=== PATIENT | female | born 1995 | race Caucasian/White ===

== ENCOUNTER → 2020-02-05 13:03 | Outpatient (BNVA) | payer OTHER, SELFPAY | PROVIDERS: PCP Internal Medicine; Referring Provider Internal Medicine; Visit Provider Advanced Practice Midwife | DX: Z39.2 Encounter for routine postpartum follow-up (principal) | CPT/HCPCS: 99212 ==

== ENCOUNTER 2020-04-25 13:14 | Outpatient (REF) | payer OTHER, SELFPAY | END 2020-04-25 13:15 | disposition home or self-care (01) | LOC: HO.LAB 13:14 | PROVIDERS: PCP Internal Medicine; Visit Provider Internal Medicine | DX: Z20.822 Contact with and (suspected) exposure to COVID-19 (principal) | CPT/HCPCS: 36415; C9803; U0003 ==

== ENCOUNTER → 2020-06-23 09:40 | Outpatient (BNVA) | payer OTHER, SELFPAY | PROVIDERS: PCP Internal Medicine; Visit Provider Advanced Practice Midwife | DX: Z32.01 Encounter for pregnancy test, result positive (principal); Z87.59 Personal history of other complications of pregnancy, childbirth and the puerperium | CPT/HCPCS: 99212 ==

== ENCOUNTER 2020-07-03 15:03 | Emergency (ER) | payer OTHER, SELFPAY ==
[2020-07-03 15:30] VITALS: BP 137/76; PULSE 86; RESP 18; TEMP 37.1; O2SAT 100; BMI 42.2
--- NOTE | 2020-07-03 16:34 | ED.GENADULT ---
HPI - General Adult General Chief complaint: General Medical Stated complaint: sinus infection? Time Seen by Provider: 07/03/20 16:34 History of Present Illness HPI narrative: Patient complains of mild left-sided headache with mild photophobia and congestion on the left side and some pain in the left side of her face which is mild and pain is worse when patient bends head, no fever no true lives, the headache started very slowly and gradually and at peak is mild It is similar to previous migraines as well but they usually happen on the right side, she has had this similar headache several times before associated with sinus infection according to patient Patient is 7 weeks Related Data Home Medications Medication Instructions Recorded Confirmed prenat.vits,flavio,deq-kheq-ianod 1 tab PO DAILY 02/05/20 06/23/20 fluticasone propionate 44 2 puff PO BID 06/23/20 06/23/20 mcg/actuation HFA aerosol inhaler loratadine 10 mg tablet 10 mg PO DAILY 06/23/20 06/23/20 Previous Rx's Medication Instructions Recorded amoxicillin 500 mg PO Q8H 7 Days #21 cap 07/03/20 Allergies Allergy/AdvReac Type Severity Reaction Status Date / Time aspirin [ASPIRIN] Allergy Unknown ITCHY Unverified 06/23/20 09:46 RASH, stomach upset, rash, stomach upset mushroom [MUSHROOM] Allergy Unknown UNKNOWN Unverified 06/23/20 09:46 Mushrooms Allergy Unknown anaphylaxis Uncoded 06/23/20 09:46 Review of Systems Review of Systems: Positive for left-sided headache photophobia and facial pain Negatives are no fever no chills no dizziness no weakness no confusion, no neck pain no stiff neck no sore throat no chest pain no shortness of breath no difficulty breathing or swallowing, no abdominal pain, no nausea no vomiting, no vaginal bleeding no skin rash and no weakness or numbness PMFSH Past Medical History PMFSH Narrative: Patient is 7 weeks Medical History Accelerated hypertension Asthma Depression Gastritis Social History Social History Alcohol intake: never Smoking Status: Never smoker Advance Directives: No Advance Directives Information Provided: No Physical Exam Vital Signs: Vital Signs: Last Vital Signs Temp 98.7 F 03/21/21 15:30 Pulse 86 07/03/20 15:30 Resp 18 07/03/20 15:30 BP 137/76 07/03/20 15:30 Pulse Ox 100 07/03/20 15:30 Body Mass Index 42.2 General appearance is no acute distress, comfortable relaxed and cooperative The head is normocephalic atraumatic The ears are clear with no redness to tympanic membrane, no narrowing of canal There is left sinus tenderness over maxillary sinus and frontal sinus, there is congestion on the left side there is no obvious facial swelling, pain is reproduced by having the patient bend forward in the left side of the face The pharynx is clear The neck is supple Chest is clear to auscultation with full symmetrical bilateral lung sounds The heart rate and rhythm regular no murmur Abdomen is soft nontender Skin no rashes Neuro gait is normal balance is normal verbal interaction and comprehension is normal, no facial asymmetry, motor is 5/5 x4, sensation is intact and symmetrical Course Course Course Narrative: Patient in 7 weeks of complains of a left-sided headache similar to prior that had a gradual onset that is mild at its peak and she associates it with prior sinus infection, but she has also had prior migraines that involve photophobia and they have been on the right side She is treated with amoxicillin for possible sinusitis and Tylenol for headache and will return for any worsening or changed headache or vomiting Discharge Plan Discharge Clinical Impression: Headache Qualifiers: Headache type: unspecified Headache chronicity pattern: unspecified pattern Intractability: not intractable Qualified Code(s): R51.9 - Headache, unspecified Patient Disposition: Home, Self-Care Additional Instructions: The headache does not seem dangerous at this pont It may be a variant of your previous migraines, or possible early sinusitis so we are treating with amoxicillin and Tylenol for pain Of headache pain worsens, if you have any dizziness or weakness, or fever or any worse condition or any concerns return to the ER Follow with care and primary doctor Prescriptions: New amoxicillin 500 mg capsule 500 mg PO Q8H 7 Days Qty: 21 RF: 0 No Action prenat.vits,flavio,fgk-uwuw-[id number] Tablet 1 tab PO DAILY RF: 0 loratadine 10 mg tablet 10 mg PO DAILY RF: 0 Flovent HFA 44 mcg/actuation HFA aerosol inhaler 2 puff PO BID RF: 0
== END 2020-07-03 17:01 | disposition home or self-care (01) ==
PROVIDERS: Emergency Provider Internal Medicine; PCP Internal Medicine
DX: O26.891 Other specified pregnancy related conditions, first trimester (principal); R51.9 Headache, unspecified; Z3A.01 Less than 8 weeks gestation of pregnancy
CPT/HCPCS: 99283

== ENCOUNTER 2020-07-08 12:44 | Outpatient (REF) | payer OTHER, SELFPAY ==
[2020-07-08 14:05] LABS: MANUAL DIFF FLAG NO
[2020-07-08 14:11] LABS: Basophils Percent Auto 0.3 % (0-2); Eosinophils Absolute Auto 0.1 X10*3/uL (0.0-0.4); Eosinophils Percent Auto 0.5 % (0-4); Hematocrit 36.8 % (37-47); Hemoglobin 12.5 g/dl (12.0-16.0); Imm Gran Abs Auto 0.05 X10*3/uL (0.00-0.03); Imm Gran Pct Auto 0.5 % (0.0-0.4); Lymphocytes Absolute Auto 2.9 X10*3/uL (1.2-4.9); Lymphocytes Percent Auto 25.8 % (20-40); Mean Corpuscular Hemoglobin 31.1 pg (27.0-33.0); Mean Corpuscular Volume 91.5 fL (80-98); Mean Platelet Volume 10.6 fL (9.4-12.3); Monocytes Absolute Auto 0.8 X10*3/uL (0.1-1.2); Neutrophils Absolute Auto 7.3 X10*3/uL (2.0-8.3); Neutrophils Percent Auto 65.9 % (45-73); Platelet Count 356 X10*3/uL (160-400); Red Blood Count 4.02 X10*6/uL (4.20-5.50); Red Cell Distribution Width 12.8 % (11.0-16.0); White Blood Count 11.1 X10*3/uL (4.8-10.8)
[2020-07-08 14:45] LABS: Alanine Aminotransferase 13 U/L (0-31); Albumin Level 3.9 g/dL (3.5-5.0); Alkaline Phosphatase 64 U/L (39-117); Anion Gap 16 (12-20); Aspartate Amino Transferase 13 U/L (5-31); Bilirubin Total 0.2 mg/dL (0.0-1.0); Blood Urea Nitrogen 11 mg/dL (9-16); Calcium 9.1 mg/dL (8.4-10.2); Carbon Dioxide 21 mmol/L (22-29); Chloride 104 mmol/L (96-108); Estimated Glomerular Filt Rate > 60; Glucose Random 111 mg/dL (60-115); Potassium 3.9 mmol/L (3.3-5.1); Sodium 137 mmol/L (135-145)
== END 2020-07-08 12:45 | disposition home or self-care (01) ==
LOC: HO.HMGCLDS 12:44
PROVIDERS: PCP Internal Medicine; Visit Provider Nurse Practitioner Family
DX: R10.13 Epigastric pain (principal)
CPT/HCPCS: 36415; 80053; 85025

== ENCOUNTER 2020-07-09 09:38 | Emergency (ER) | payer OTHER, SELFPAY ==
--- NOTE | ~2020-07-09 | US_ITS ---
EXAMINATION: US OBSTETRICAL ULTRASOUND CLINICAL INFORMATION: 7 weeks with vaginal bleeding. COMPARISON: None. LMP: 05/14/2020. Gestational age by maternal dates is 8 weeks and 0 days. Estimated date of delivery by maternal dates is 02/18/2021. TECHNIQUE: Grayscale transabdominal imaging was obtained of the pelvis. FINDINGS: Two separate intrauterine gestational sacs are noted. Gestational sac A demonstrates a yolk sac and pole with a heart rate of 142 bpm. Gestational sac B demonstrates a yolk sac and pole with a heart rate of 137 bpm. [place]-rump measurements of both poles corresponds with a gestational age of 7 weeks and 0 days. Both ovaries are normal in size and appearance. No gross free pelvic fluid noted. US/US OB <= 14 weeks fetus IMPRESSION: 1. Twin intrauterine gestation with ultrasound gestational age of 7 weeks +/- 4 days. 2. Estimated date of delivery is 02/25/2021 +/- 4 days. 3. No maternal adnexal mass or pelvic ascites.
--- NOTE | ~2020-07-09 | US_ITS ---
EXAMINATION: US OBSTETRICAL ULTRASOUND CLINICAL INFORMATION: 7 weeks with vaginal bleeding. COMPARISON: None. LMP: 05/14/2020. Gestational age by maternal dates is 8 weeks and 0 days. Estimated date of delivery by maternal dates is 02/18/2021. TECHNIQUE: Grayscale transabdominal imaging was obtained of the pelvis. FINDINGS: Two separate intrauterine gestational sacs are noted. Gestational sac A demonstrates a yolk sac and pole with a heart rate of 142 bpm. Gestational sac B demonstrates a yolk sac and pole with a heart rate of 137 bpm. [place]-rump measurements of both poles corresponds with a gestational age of 7 weeks and 0 days. Both ovaries are normal in size and appearance. No gross free pelvic fluid noted. US/US OB <= 14 wk fetus add gest IMPRESSION: 1. Twin intrauterine gestation with ultrasound gestational age of 7 weeks +/- 4 days. 2. Estimated date of delivery is 02/25/2021 +/- 4 days. 3. No maternal adnexal mass or pelvic ascites.
[2020-07-09 09:43] VITALS: BP 130/77; PULSE 94; RESP 16; TEMP 37.1; O2SAT 99; BMI 43.9
[2020-07-09 10:39] LABS: MANUAL DIFF FLAG NO
[2020-07-09 10:43] LABS: Basophils Percent Auto 0.4 % (0-2); Eosinophils Absolute Auto 0.1 X10*3/uL (0.0-0.4); Eosinophils Percent Auto 0.7 % (0-4); Hematocrit 36.6 % (37-47); Hemoglobin 12.4 g/dl (12.0-16.0); Imm Gran Abs Auto 0.04 X10*3/uL (0.00-0.03); Imm Gran Pct Auto 0.4 % (0.0-0.4); Lymphocytes Absolute Auto 2.7 X10*3/uL (1.2-4.9); Mean Corpuscular HGB Conc 33.9 g/dl (31.0-35.0); Mean Corpuscular Hemoglobin 30.7 pg (27.0-33.0); Mean Corpuscular Volume 90.6 fL (80-98); Mean Platelet Volume 10.2 fL (9.4-12.3); Monocytes Absolute Auto 0.7 X10*3/uL (0.1-1.2); Monocytes Percent Auto 6.1 % (2-11); Neutrophils Absolute Auto 7.7 X10*3/uL (2.0-8.3); Neutrophils Percent Auto 68.4 % (45-73); Platelet Count 337 X10*3/uL (160-400); Red Blood Count 4.04 X10*6/uL (4.20-5.50); Red Cell Distribution Width 12.7 % (11.0-16.0); White Blood Count 11.2 X10*3/uL (4.8-10.8)
--- NOTE | 2020-07-09 11:00 | ED.FEMALEGU ---
HPI - Female Genitourinary General Chief complaint: Urogenital-Female Stated complaint: spotting - 7wks preg Time Seen by Provider: 07/09/20 10:04 Source: patient Mode of arrival: ambulatory Limitations: no limitations Related Data Home Medications Medication Instructions Recorded Confirmed prenat.vits,flavio,[id number] 1 tab PO DAILY 02/05/20 06/23/20 fluticasone propionate 44 2 puff PO BID 06/23/20 06/23/20 mcg/actuation HFA aerosol inhaler loratadine 10 mg tablet 10 mg PO DAILY 06/23/20 06/23/20 loratadine 10 mg tablet 10 mg PO DAILY 07/08/20 Previous Rx's Medication Instructions Recorded amoxicillin 500 mg PO Q8H 7 Days #21 cap 07/03/20 doxylamine succinate 25 mg tablet 12.5 mg PO BEDTIME 30 Days #15 tab 07/05/20 pyridoxine (vitamin B6) 25 mg 25 mg PO TID 30 Days #90 tab 07/05/20 tablet famotidine 20 mg tablet 20 mg PO DAILY PRN #30 tab 07/08/20 Allergies Allergy/AdvReac Type Severity Reaction Status Date / Time aspirin [ASPIRIN] Allergy Unknown ITCHY Verified 07/09/20 09:48 RASH, stomach upset, rash, stomach upset mushroom [MUSHROOM] Allergy Unknown UNKNOWN Verified 07/09/20 09:48 [facility] Past Medical History Medical History Accelerated hypertension Asthma Depression Gastritis Social History Social History Alcohol intake: never Smoking Status: Never smoker Advance Directives: No Advance Directives Information Provided: Yes Physical Exam Vital Signs: Vital Signs: Last Vital Signs Temp 98.7 F 07/09/20 09:43 Pulse 94 07/09/20 09:43 Resp 16 07/09/20 09:43 BP 130/77 07/09/20 09:43 Pulse Ox 99 07/09/20 09:43 Body Mass Index 43.9 MDM - Female Genitourinary Lab Data Result diagrams: 07/09/20 10:32 07/09/20 10:32 Labs: Lab Results 07/09/20 07/09/20 Range/Units 10:32 10:32 WBC 11.2 H (4.8-10.8) X10*3/uL RBC 4.04 L (4.20-5.50) X10*6/uL Hgb 12.4 (12.0-16.0) g/dl Hct 36.6 L (37-47) % MCV 90.6 (80-98) fL MCH 30.7 (27.0-33.0) pg MCHC 33.9 (31.0-35.0) g/dl RDW 12.7 (11.0-16.0) % Plt Count 337 (160-400) X10*3/uL MPV 10.2 (9.4-12.3) fL Immature Gran % (Auto) 0.4 (0.0-0.4) % Neut % (Auto) 68.4 (45-73) % Lymph % (Auto) 24.0 (20-40) % [place] % (Auto) 6.1 (2-11) % Eos % (Auto) 0.7 (0-4) % Baso % (Auto) 0.4 (0-2) % Lymph # (Auto) 2.7 (1.2-4.9) X10*3/uL [place] # (Auto) 0.7 (0.1-1.2) X10*3/uL Eos # (Auto) 0.1 (0.0-0.4) X10*3/uL Baso # (Auto) 0.0 (0.0-0.2) X10*3/uL Abs Immat Gran (auto) 0.04 H (0.00-0.03) X10*3/uL Absolute Neuts (auto) 7.7 (2.0-8.3) X10*3/uL Absolute Nucleated RBC 0.000 (0.0-0.012) X10*3/uL Nucleated RBC % (auto) 0.0 (0.0-0.2) /100WBC Blood Type A Positive Discharge Plan Discharge Prescriptions: No Action Unisom (doxylamine) 25 mg tablet 12.5 mg PO BEDTIME 30 Days Qty: 15 RF: 0 pyridoxine (vitamin B6) 25 mg tablet 25 mg PO TID 30 Days Qty: 90 RF: 0 amoxicillin 500 mg capsule 500 mg PO Q8H 7 Days Qty: 21 RF: 0 loratadine [Claritin] 10 mg tablet 10 mg PO DAILY RF: 0 famotidine 20 mg tablet 20 mg PO DAILY PRN (Reason: epigastric discomfort) Qty: 30 RF: 0 prenat.vits,flavio,yfh-ecjm-wuwsd Tablet 1 tab PO DAILY RF: 0 loratadine 10 mg tablet 10 mg PO DAILY RF: 0 Flovent HFA 44 mcg/actuation HFA aerosol inhaler 2 puff PO BID RF: 0
--- NOTE | 2020-07-09 11:00 | PC.NURSE ---
RE'D REPORT FROM ALEXANDER STILES. PT IN NAD AT THIS TIME, AWAITING LAB RESULTS & TRANSPORT TO US.
--- NOTE | 2020-07-09 11:02 | ED_ITS ---
HPI - General Chief complaint: Urogenital-Female Stated complaint: spotting - 7wks preg Time Seen by Provider: 07/09/20 10:04 Source: patient Mode of arrival: ambulatory Limitations: no limitations History of Present Illness HPI Narrative: 24-year-old female with multiparous patient who is AB1 currently 7 and half weeks with a due date of 01/19/2021 her last menstrual period was 05/14/2020 with a history of gestational hypertension in her previous pregnancies and hemorrhage therefore she had to be induced in the past, her last was in December and she gave at [facility] due to Our birthing center here at [facility] closed she reports her water broke and went into labor on her own before her day of induction and she had no hemorrhaging and no complications presenting to the ED with complaints of suprapubic abdominal pain/cramping with associated light pink vaginal bleeding that started yesterday. Patient reports she was just seen by her OBGYN on 06/23/2020 for her 1st encounter otherwise she did not have any symptoms at that time and she did not have any blood work or imaging performed at that time. Reports she is currently taking her previously prescribed medications as previously prescribed. Denies any fevers, chills, h eadaches, dizziness, sore throat, chest pain, shortness of breath, palpitations, dyspnea on exertion, orthopnea, radiation of the abdominal pain, back pain, abnormal vaginal discharge, hematuria, dysuria, diarrhea, constipation or any other symptoms complaints or concerns at this time. MD Complaint: abdominal pain and vaginal bleeding Onset (ago): day(s) (since yesterday) Pain Consistency: constant Location: pelvis Severity: mild Quality: Cramping Relieving factors: none Exacerbating factors: none Associated symptoms: denies other symptoms Vaginal discharge: clear (/bloody) Vaginal bleeding: light ([place] color no clots) Date of Last Menstrual Period: 05/14/20 Expected Date of Delivery: 01/19/21 Number of Weeks : 7 OB History - Current : no complications OB History - Previous Pregnancies: hypertension care: followed by OB Related Data : 6 Para: 4 Total number of abortions (spontaneous and elective): 1 Home Medications Medication Instructions Recorded Confirmed prenat.vits,flavio,[id number]-lfpn-auigb 1 tab PO DAILY 02/05/20 06/23/20 fluticasone propionate 44 2 puff PO BID 06/23/20 06/23/20 mcg/actuation HFA aerosol inhaler loratadine 10 mg tablet 10 mg PO DAILY 06/23/20 06/23/20 loratadine 10 mg tablet 10 mg PO DAILY 07/08/20 Previous Rx's Medication Instructions Recorded amoxicillin 500 mg PO Q8H 7 Days #21 cap 07/03/20 doxylamine succinate 25 mg tablet 12.5 mg PO BEDTIME 30 Days #15 tab 07/05/20 pyridoxine (vitamin B6) 25 mg 25 mg PO TID 30 Days #90 tab 07/05/20 tablet famotidine 20 mg tablet 20 mg PO DAILY PRN #30 tab 07/08/20 acetaminophen [Tylenol Extra 1,000 mg PO QID PRN #14 tab 07/09/20 Strength] Allergies Allergy/AdvReac Type Severity Reaction Status Date / Time aspirin [ASPIRIN] Allergy Unknown ITCHY Verified 07/09/20 09:48 RASH, stomach upset, rash, stomach upset mushroom [MUSHROOM] Allergy Unknown UNKNOWN Verified 07/09/20 09:48 Review of Systems Review of Systems: Constitutional : No Fever, No Chills ENT/Mouth : No sore throat, No Rhinorrhea Eyes: No Eye Pain, No Redness Cardiovascular : No Chest Pain, No SOB Respiratory : No Cough, No Sputum, No Wheezing Gastrointestinal : + mild lower abd pain, No Nausea, No Vomiting, No Diarrhea Genitourinary : + irregular bleeding, No Dysuria, No Urinary Frequency, No pelvic pain, No abnormal vaginal discharge Musculoskeletal : No Myalgias Skin : No rash Neuro : No Weakness, No Headache Psych : No Anxiety/Panic, No Depression Heme/Lymph: No bruising, No Lymphadenopathy Endocrine : No Polyuria, No Polydipsia Yes all other systems are reviewed and are negative [facility] Past Medical History Attestation statement: The following information was validated with the patient. Medical History Accelerated hypertension Asthma Depression Gastritis : 6 Para: 4 Total number of abortions (spontaneous and elective): 1 Date of Last Menstrual Period: 05/14/20 Social History Social History Alcohol intake: never Smoking Status: Never smoker Advance Directives: No Advance Directives Information Provided: Yes Physical Exam Vital Signs: Vital Signs: Last Vital Signs Temp 98.7 F 07/09/20 09:43 Pulse 94 07/09/20 09:43 Resp 16 07/09/20 09:43 BP 130/77 07/09/20 09:43 Pulse Ox 99 07/09/20 09:43 Body Mass Index 43.9 vital signs have been reviewed as normal and appeared to be correct. Blood pressure normal at 130/77. Heart rate normal. Respiration rate normal. Temperature normal. Oxygen saturation normal. Appearance: Alert. Oriented X3. No acute distress. Head: Normal external exam. Normocephalic. Atraumatic. Eyes: PERRLA. EOMI. Conjunctiva and sclera normal. Eyelids normal. ENT: Pharynx normal. Uvula midline. Moist mucous membranes. Neck: Normal inspection. Neck supple. FROM. No adenopathy. Thyroid Normal. No meningeal signs. No neck mass noted. CVS: Normal heart rate and rhythm. Heart sound normal. No murmurs noted. Pulses normal throughout. Respiratory: No respiratory distress. Painless inspiration. Breath sounds normal. No wheezes/rales/rhonchi noted. Chest nontender. No accessory muscle usage noted or decreased air movement noted. Abdomen: Soft and nontender. Bowel sounds normal in all 4 quadrants. No distention noted. No organomegaly noted. No visible injury noted. : Supervised by ADRIANA Morrison. Normal external appearance of urethra. No lesions/lacerations or discharge or tenderness noted. Speculum exam normal appearance/palpation of vagina normal. Patient did have some mild thin pink/reddish colored discharge/mild bleeding. No hemorrhaging noted. Otherwise no vaginal erythema. No foreign bodies noted. No vaginal laceration/lesions noted. No tissue present in vagina. No vaginal mass noted. No vaginal swelling noted. No vaginal tenderness noted. Normal appearance of cervix. Normal palpation of cervix. Cervical os is closed. No abnormal cervical discharge noted. No cervical lesion/mass. No Bartholin cyst noted. No cervical motion tenderness noted. Negative chandelier sign. Normal bimanual exam. Uterine size normal. Bladder normal to palpation. Uterine consistency normal. Normal cervical palpation. Uterine mobility normal. Uterine shape normal. Normal adnexa. Normal rectovaginal exam. Back: No CVA tenderness. Full range of motion noted. Skin: Skin warm and dry. Normal skin color. Normal skin turgor. No rashes/lesions/lacerations noted. Extremities: No lower extremity edema. Extremities exhibit normal range of motion. Extremities nontender. Neuro: Oriented X 3. No motor deficit. No sensory deficit. Reflexes normal. Course Course Course Narrative: 10am - 24-year-old female with multiparous patient who is AB1 currently 7-1/2 weeks with a due date of 01/19/2021 her last menstrual period was 05/14/2020 with a history of gestational hypertension in her previous pregnancies and hemorrhage presenting to the ED with complaints of lower abdominal/suprapubic abdominal pain with light/mild vaginal bleeding since yesterday. Denies any other symptoms complaints or concerns at this time. - on exam patient is alert and oriented x3. Not in any acute distress. Vital signs are stable within normal limits. Lungs clear to auscultation. CV RRR. abdomen is soft and nontender. No reproducible tenderness on exam. Gravid uterus. Speculum exam revealed mild light bloody discharge no active bleeding or hemorrhaging noted at this time. No abnormal vaginal discharge. No CVA tenderness noted. No lower extremity edema noted. - Plan: Labs, Rh, UA, gonorrhea/chlamydia/bacterial vaginosis/Trichomonas and yeast cultures and 1st trimester ultrasound/pelvic/transvaginal then re- evaluate. Reevaluation(s) Reevaluation #1: - patient with white blood cell count 70269. carbon dioxide 20[place] [address]. UA within normal limits no evidence of UTI. Trichomonas/yeast negative. Awaiting bacterial vaginosis/gonorrhea/chlamydia cultures. Although patient denies any thoughts of STD therefore will not treat. Does not appear to have bacterial vaginosis on exam. - 1st trimester ultrasound revealed twins intrauterine gestation with ultrasound distraction all age of 7 weeks and +/-4 days with an estimated delivery date of 02/25/2021 with +/-4 days no other acute processes are noted. - therefore will DC home with threatened /miscarriage paperwork and in structions to return if any new or worsening symptoms to follow up with primary care provider/OBGYN. Patient understands agrees with this plan. Time: 12:20 Procedures Perimortem Number of Weeks : 7 MDM - OB/Uterine Contractions Medical Records Attestation: I reviewed the patient's medical records. Lab Data Attestation: I reviewed the patient's lab results. Result diagrams: 07/09/20 10:32 07/09/20 10:32 Labs: Lab Results 07/09/20 07/09/20 07/09/20 Range/Units 10:32 10:32 10:32 WBC 11.2 H (4.8-10.8) X10*3/uL RBC 4.04 L (4.20-5.50) X10*6/uL Hgb 12.4 (12.0-16.0) g/dl Hct 36.6 L (37-47) % MCV 90.6 (80-98) fL MCH 30.7 (27.0-33.0) pg MCHC 33.9 (31.0-35.0) g/dl RDW 12.7 (11.0-16.0) % Plt Count 337 (160-400) X10*3/uL MPV 10.2 (9.4-12.3) fL Immature Gran % (Auto) 0.4 (0.0-0.4) % Neut % (Auto) 68.4 (45-73) % Lymph % (Auto) 24.0 (20-40) % [place] % (Auto) 6.1 (2-11) % Eos % (Auto) 0.7 (0-4) % Baso % (Auto) 0.4 (0-2) % Lymph # (Auto) 2.7 (1.2-4.9) X10*3/uL [place] # (Auto) 0.7 (0.1-1.2) X10*3/uL Eos # (Auto) 0.1 (0.0-0.4) X10*3/uL Baso # (Auto) 0.0 (0.0-0.2) X10*3/uL Abs Immat Gran (auto) 0.04 H (0.00-0.03) X10*3/uL Absolute Neuts (auto) 7.7 (2.0-8.3) X10*3/uL Absolute Nucleated RBC 0.000 (0.0-0.012) X10*3/uL Nucleated RBC % (auto) 0.0 (0.0-0.2) /100WBC PT (10.8-13.0) SEC INR (0.9-1.1) APTT (24.1-38.0) SEC Sodium 136 (135-145) mmol/L Potassium 3.8 (3.3-5.1) mmol/L Chloride 104 (96-108) mmol/L Carbon Dioxide 20 L (22-29) mmol/L Anion Gap 16 (12-20) BUN 9 (9-16) mg/dL Creatinine 0.61 (0.5-1.4) mg/dL Estim Creat Clear Calc 150.3 Estimated GFR > 60 Random Glucose 102 (60-115) mg/dL Calcium 9.0 (8.4-10.2) mg/dL Magnesium 1.9 (1.6-2.6) mg/dL Total Bilirubin 0.4 (0.0-1.0) mg/dL Direct Bilirubin 0.2 (0.0-0.5) mg/dL AST 12 (5-31) U/L ALT 13 (0-31) U/L Alkaline Phosphatase 61 (39-117) U/L Total Protein 6.8 (6.5-8.0) g/dL Albumin 3.8 (3.5-5.0) g/dL Beta HCG, Quant mIU/mL Urine Color Urine Appearance Urine pH (5.0-8.0) Ur Specific [place] (1.005-1.025) Urine Protein (NEG-TRACE) MG/DL Urine Glucose (UA) (NEG) MG/DL Urine Ketones (NEG) MG/DL Urine Blood (NEG) Urine Nitrite (NEG) Ur Leukocyte Esterase (NEG) Blood Type A Positive 07/09/20 07/09/20 07/09/20 Range/Units 10:32 10:33 11:01 WBC (4.8-10.8) X10*3/uL RBC (4.20-5.50) X10*6/uL Hgb (12.0-16.0) g/dl Hct (37-47) % MCV (80-98) fL MCH (27.0-33.0) pg MCHC (31.0-35.0) g/dl RDW (11.0-16.0) % Plt Count (160-400) X10*3/uL MPV (9.4-12.3) fL Immature Gran % (Auto) (0.0-0.4) % Neut % (Auto) (45-73) % Lymph % (Auto) (20-40) % [place] % (Auto) (2-11) % Eos % (Auto) (0-4) % Baso % (Auto) (0-2) % Lymph # (Auto) (1.2-4.9) X10*3/uL [place] # (Auto) (0.1-1.2) X10*3/uL Eos # (Auto) (0.0-0.4) X10*3/uL Baso # (Auto) (0.0-0.2) X10*3/uL Abs Immat Gran (auto) (0.00-0.03) X10*3/uL Absolute Neuts (auto) (2.0-8.3) X10*3/uL Absolute Nucleated RBC (0.0-0.012) X10*3/uL Nucleated RBC % (auto) (0.0-0.2) /100WBC PT 12.6 (10.8-13.0) SEC INR 1.1 (0.9-1.1) APTT 34.6 (24.1-38.0) SEC Sodium (135-145) mmol/L Potassium (3.3-5.1) mmol/L Chloride (96-108) mmol/L Carbon Dioxide (22-29) mmol/L Anion Gap (12-20) BUN (9-16) mg/dL Creatinine (0.5-1.4) mg/dL Estim Creat Clear Calc Estimated GFR Random Glucose (60-115) mg/dL Calcium (8.4-10.2) mg/dL Magnesium (1.6-2.6) mg/dL Total Bilirubin (0.0-1.0) mg/dL Direct Bilirubin (0.0-0.5) mg/dL AST (5-31) U/L ALT (0-31) U/L Alkaline Phosphatase (39-117) U/L Total Protein (6.5-8.0) g/dL Albumin (3.5-5.0) g/dL Beta HCG, Quant 16252 mIU/mL Urine Color YELLOW Urine Appearance HAZY Urine pH 6.0 (5.0-8.0) Ur Specific [place] >= 1.030 H (1.005-1.025) Urine Protein TRACE (NEG-TRACE) MG/DL Urine Glucose (UA) NEG (NEG) MG/DL Urine Ketones NEG (NEG) MG/DL Urine Blood TRACE (NEG) Urine Nitrite NEG (NEG) Ur Leukocyte Esterase NEG (NEG) Blood Type Imaging Data First trimester ultrasound: Attestation: I personally reviewed and interpreted this imaging study as follows: Radiologist's impression: FINDINGS: Two separate intrauterine gestational sacs are noted. Gestational sac A demonstrates a yolk sac and pole with a heart rate of 142 bpm. Gestational sac B demonstrates a yolk sac and pole with a heart rate of 137 bpm. [place]-rump measurements of both poles corresponds with a gestational age of 7 weeks and 0 days. Both ovaries are normal in size and appearance. No gross free pelvic fluid noted. US/US OB <= 14 wk fetus add gest IMPRESSION: 1. Twin intrauterine gestation with ultrasound gestational age of 7 weeks +/- 4 days. 2. Estimated date of delivery is 02/25/2021 +/- 4 days. 3. No maternal adnexal mass or pelvic ascites. Discharge Plan Discharge Clinical Impression: test positive, Twin gestation in first trimester, Vaginal bleeding affecting early , , threatened Patient Disposition: Home, Self-Care Instructions: Threatened Miscarriage (ED) Prescriptions: New acetaminophen [Tylenol Extra Strength] 500 mg tablet 1,000 mg PO QID PRN (Reason: fever or pain) Qty: 14 RF: 0 No Action Unisom (doxylamine) 25 mg tablet 12.5 mg PO BEDTIME 30 Days Qty: 15 RF: 0 pyridoxine (vitamin B6) 25 mg tablet 25 mg PO TID 30 Days Qty: 90 RF: 0 amoxicillin 500 mg capsule 500 mg PO Q8H 7 Days Qty: 21 RF: 0 loratadine [Claritin] 10 mg tablet 10 mg PO DAILY RF: 0 famotidine 20 mg tablet 20 mg PO DAILY PRN (Reason: epigastric discomfort) Qty: 30 RF: 0 prenat.vits,flavio,qdf-goxq-ugkvo Tablet 1 tab PO DAILY RF: 0 loratadine 10 mg tablet 10 mg PO DAILY RF: 0 Flovent HFA 44 mcg/actuation HFA aerosol inhaler 2 puff PO BID RF: 0 Referrals: Susanne Hector MD [Primary Care Provider] - 2 days Jorge Luis Luong MD [Physician] - 2 days Stand Alone Forms: Work/School Release Print Language: Maltese
[2020-07-09 11:06] LABS: Alanine Aminotransferase 13 U/L (0-31); Albumin Level 3.8 g/dL (3.5-5.0); Alkaline Phosphatase 61 U/L (39-117); Anion Gap 16 (12-20); Aspartate Amino Transferase 12 U/L (5-31); Bilirubin Direct 0.2 mg/dL (0.0-0.5); Bilirubin Total 0.4 mg/dL (0.0-1.0); Blood Urea Nitrogen 9 mg/dL (9-16); Carbon Dioxide 20 mmol/L (22-29); Chloride 104 mmol/L (96-108); Creatinine Clr Calc Pharmacy 150.3; Estimated Glomerular Filt Rate > 60; Glucose Random 102 mg/dL (60-115); Magnesium 1.9 mg/dL (1.6-2.6); Potassium 3.8 mmol/L (3.3-5.1); Sodium 136 mmol/L (135-145); Total Protein 6.8 g/dL (6.5-8.0)
[2020-07-09 11:16] LABS: INTERNATIONAL NORM RATIO 1.1 (0.9-1.1); Prothrombin Time 12.6 SEC (10.8-13.0)
[2020-07-09 11:18] LABS: Partial Thromboplastin Time 34.6 SEC (24.1-38.0)
[2020-07-09 12:09] LABS: Appearance Urine HAZY; Color Urine YELLOW; Glucose Urine UA NEG (NEG); Leukocyte Esterase Urine NEG (NEG); Nitrite Urine NEG (NEG); Specific Gravity - Urine >= 1.030 (1.005-1.025); Urine Blood TRACE (NEG); Urine Ketones NEG (NEG); Urine Protein TRACE MG/DL (NEG-TRACE)
[2020-07-09 12:22] LABS: Bacteria Urine TRACE /LPF; Mucus Urine 1+ /LPF; RBC Urine 0-2 /HPF (0); Squamous Epithelial Cell Urine 1+ /LPF; WBC Urine 0-2 /HPF (0-4)
[2020-07-09 13:26] LABS: CT PCR NOT DETECTED (Not Detect.); NG PCR NOT DETECTED (Not Detect.)
[2020-07-09 13:28] LABS: BV Int Neg Control Negative (Negative); BV Int Pos Control Positive (Positive)
== END 2020-07-09 13:11 | disposition home or self-care (01) ==
PROVIDERS: Physician Assistant Medical; Emergency Provider Emergency Medicine; PCP Internal Medicine
DX: O20.0 Threatened abortion (principal); R10.9 Unspecified abdominal pain
CPT/HCPCS: 36415; 76801; 76802; 80048; 80076; 81001; 81003; 83735; 84702; 85025; 85610; 85730; 86900; 86901; 87480; 87491; 87510; 87591; 87660; 99283; 99284

== ENCOUNTER → 2020-07-13 14:56 | Outpatient (BNVA) | payer OTHER, SELFPAY | PROVIDERS: PCP Internal Medicine; Visit Provider Obstetrics & Gynecology | DX: O30.001 Twin pregnancy, unspecified number of placenta and unspecified number of amniotic sacs, first trimester (principal) | CPT/HCPCS: 99212 ==

== ENCOUNTER → 2020-07-15 10:07 | Outpatient (BNVA) | payer OTHER, SELFPAY | PROVIDERS: PCP Internal Medicine; Visit Provider Advanced Practice Midwife | DX: Z32.01 Encounter for pregnancy test, result positive (principal); Z3A.08 8 weeks gestation of pregnancy | CPT/HCPCS: 99212 ==

== ENCOUNTER 2020-07-18 11:36 | Outpatient (REF) | payer OTHER, SELFPAY ==
[2020-07-18 13:14] LABS: MANUAL DIFF FLAG NO
[2020-07-18 13:18] LABS: Basophils Percent Auto 0.3 % (0-2); Eosinophils Absolute Auto 0.1 X10*3/uL (0.0-0.4); Eosinophils Percent Auto 0.7 % (0-4); Hematocrit 36.5 % (37-47); Hemoglobin 12.4 g/dl (12.0-16.0); Imm Gran Abs Auto 0.05 X10*3/uL (0.00-0.03); Imm Gran Pct Auto 0.4 % (0.0-0.4); Lymphocytes Absolute Auto 2.6 X10*3/uL (1.2-4.9); Lymphocytes Percent Auto 21.4 % (20-40); Mean Corpuscular Hemoglobin 30.9 pg (27.0-33.0); Mean Platelet Volume 10.4 fL (9.4-12.3); Monocytes Absolute Auto 0.8 X10*3/uL (0.1-1.2); Monocytes Percent Auto 6.8 % (2-11); Neutrophils Absolute Auto 8.5 X10*3/uL (2.0-8.3); Neutrophils Percent Auto 70.4 % (45-73); Platelet Count 339 X10*3/uL (160-400); Red Blood Count 4.01 X10*6/uL (4.20-5.50); Red Cell Distribution Width 12.8 % (11.0-16.0); White Blood Count 12.1 X10*3/uL (4.8-10.8)
[2020-07-18 13:28] LABS: Glucose Fasting 132 mg/dL (60-99)
[2020-07-18 13:30] LABS: Glucose 1 Hour 133 mg/dL
[2020-07-18 13:32] LABS: Alanine Aminotransferase 13 U/L (0-31); Aspartate Amino Transferase 11 U/L (5-31); Blood Urea Nitrogen 11 mg/dL (9-16); Estimated Glomerular Filt Rate > 60; Uric Acid 4.9 mg/dL (2.4-5.7)
[2020-07-18 14:20] LABS: Syphilis Screen Nonreactive (Nonreactive)
[2020-07-18 14:55] LABS: Amphetamine Screen Urine Not Detected (Not Detect); Barbiturates, Urine Not Detected (Not Detect); Benzodiazepines Screen Urine Not Detected (Not Detect); Cannabinoid Screen Urine Not Detected (Not Detect); Cocaine Screen Urine Not Detected (Not Detect); Opiate Screen Urine Not Detected (Not Detect); Phencyclidine Screen Urine Not Detected (Not Detect)
[2020-07-19 04:33] LABS: HIV AB/AG Nonreactive (Nonreactive); HIV Num 1 0.07 S/CO (0.00-0.99); ~HepC Num1 0.05 S/CO (0.00-0.79); ~Hepatitis C Antibody Nonreactive (Nonreactive)
[2020-07-19 04:38] LABS: HBsAGNum1 0.23 S/CO (0.00-0.99); Hepatitis B Surface Antigen Negative (Negative)
[2020-07-19 17:51] LABS: Rubella IgG Antibody 1.33 Index
== END 2020-07-18 11:37 | disposition home or self-care (01) ==
LOC: HO.LAB 11:36
PROVIDERS: PCP Internal Medicine; Visit Provider Advanced Practice Midwife
DX: O30.001 Twin pregnancy, unspecified number of placenta and unspecified number of amniotic sacs, first trimester (principal); Z87.59 Personal history of other complications of pregnancy, childbirth and the puerperium; Z3A.00 Weeks of gestation of pregnancy not specified
CPT/HCPCS: 80307; 82565; 82951; 84450; 84460; 84520; 84550; 85025; 86762; 86780; 86787; 86803; 87086; 87340; 87389

== ENCOUNTER 2020-07-26 15:06 | Outpatient (REF) | payer OTHER, SELFPAY ==
[2020-07-26 15:55] LABS: IDNOW Serial# 55D5AD1C
[2020-07-26 15:56] LABS: COVID-19 Test Negative (Negative)
== END 2020-07-26 15:07 | disposition home or self-care (01) ==
LOC: HO.LAB 15:06
PROVIDERS: Visit Provider Internal Medicine
DX: Z20.822 Contact with and (suspected) exposure to COVID-19 (principal)
CPT/HCPCS: 36415; 87635; C9803

== ENCOUNTER 2020-08-08 10:26 | Outpatient (REF) | payer OTHER, SELFPAY ==
[2020-08-08 15:03] LABS: CT PCR NOT DETECTED (Not Detect.); NG PCR NOT DETECTED (Not Detect.)
== END 2020-08-08 10:27 | disposition home or self-care (01) ==
LOC: HO.LAB 10:26
PROVIDERS: Visit Provider Advanced Practice Midwife
DX: O30.001 Twin pregnancy, unspecified number of placenta and unspecified number of amniotic sacs, first trimester (principal); O99.211 Obesity complicating pregnancy, first trimester; E66.01 Morbid (severe) obesity due to excess calories; Z3A.11 11 weeks gestation of pregnancy; Z20.2 Contact with and (suspected) exposure to infections with a predominantly sexual mode of transmission
CPT/HCPCS: 81003; 87491; 87591; 99212

== ENCOUNTER 2020-08-12 12:09 | Outpatient (REF) | payer OTHER, SELFPAY ==
--- NOTE | ~2020-08-12 | US_ITS ---
EXAMINATION: OBSTETRICAL ULTRASOUND, First Trimester Twins HISTORY: 24-year-old at the 12.6 weeks of gestation Dichorionic diamniotic twins NT screening COMPARISON: 07/09/2020 TECHNIQUE: Real time transabdominal imaging with color and M-mode Doppler. FINDINGS: Living dichorionic/diamniotic twin gestation is noted. Twin A: Maternal A viable fetus with CRL of 55 mm c/w 12.1wks is noted. Heart Rate: 156 beats per minute. Normal yolk sac seen. NT was 1.4.mm. NB Present The embryo appears sonographically wnl for this GA. Both maternal ovaries are seen and appear normal. GESTATIONAL AGE: 1. Established GA: 12.6 wks 2. GA from [facility]: 11.6 wks Twin B: Maternal A viable fetus with CRL of 59 mm c/w 12.4wks is noted. Heart Rate: 169 beats per minute. Normal yolk sac seen. NT was 0.9.mm. NB Present The embryo appears sonographically wnl for this GA. GESTATIONAL AGE: 1. Established GA: 12.6 wks 2. GA from [facility]: 12.4 wks ESTIMATED DATE OF DELIVERY: 1. Established MAYUR: 02/18/2021 2. MAYUR from [facility]: 02/23/2021 US/US OB 1T nuc measure add IMPRESSION: 1. Living dichorionic diamniotic twins 2. The twins are concordant. The CRL corresponds to 12.1 weeks of gestation. 3. Twin A: NT1.4 mm, embryo appears sonographically normal. 4. Twin B: NT 0.9 mm, embryo appears sonographically normal. 5. Normal ovaries MFM Consultation: I reviewed the ultrasound findings along with significance of NT measurement. The NT of less than 3mm is generally reassuring. However, the sensitivity for T21 detection is only 60%. I reviewed the availability of serum aneuploidy screening which includes cell-free DNA and placental protein based tests. I discussed the sensitivity, false-positive rate, and other limitations associated with each test. I also reviewed the availability of invasive diagnostic tests that are associated small but definite risk of miscarriage. We also reviewed the differences between screening tests and diagnostic tests. After our discussion, she opted for the First trimester screening that is based on cell-free DNA or non-invasive testing (NIPT). I informed her of the limitations N IPT in multiple gestations. We discussed various obstetrical complications associated with twin gestation. These include increased risk of delivery, preeclampsia, gestational diabetes, and IUGR. She will be monitored with monthly ultrasound evaluation beginning at 18 weeks until approximately 34 weeks. After that, weekly testing is recommended until delivery. She has a history of hypertension. Denies medication. Recommend baby aspirin for preeclampsia prophylaxis. Follow up at 18 weeks for survey has been scheduled. Thank you very much for this referral. Total time 30 minutes. The time spent was devoted to counseling the patient about the disease and diagnosis, coordinating care including reviewing her records, pertinent lab data and studies, as well as discussing diagnostic evaluation and workup, plan therapeutic interventions and future disposition of care. This includes any additional research needed to obtain further information in formulating the plan of care of this patient. This note was generated with a voice recognition program. Please excuse any errors which may have been overlooked during my review of this note. Sometimes these errors may affect the content or meaning of a given sentence.
== END 2020-08-12 12:10 | disposition home or self-care (01) ==
LOC: HO.US 12:09
PROVIDERS: PCP Internal Medicine; Visit Provider Advanced Practice Midwife
DX: O30.001 Twin pregnancy, unspecified number of placenta and unspecified number of amniotic sacs, first trimester (principal); Z3A.12 12 weeks gestation of pregnancy
CPT/HCPCS: 76813; 76814

== ENCOUNTER → 2020-09-06 10:49 | Outpatient (BNVA) | payer OTHER, SELFPAY | PROVIDERS: PCP Internal Medicine; Visit Provider Obstetrics & Gynecology | DX: O30.001 Twin pregnancy, unspecified number of placenta and unspecified number of amniotic sacs, first trimester (principal); Z3A.16 16 weeks gestation of pregnancy | CPT/HCPCS: 99212 ==

== ENCOUNTER 2020-09-09 09:07 | Outpatient (REF) | payer OTHER, SELFPAY ==
--- NOTE | ~2020-09-09 | US_ITS ---
EXAMINATION: OBSTETRICAL ULTRASOUND - SECOND TRIMESTER, TWINS HISTORY: 24-year-old at 16.6 weeks of gestation Dichorionic diamniotic twins Screening for anomaly Cervical length evaluation COMPARISON: 08/12/2020 TECHNIQUE: Real time transabdominal imaging with color and M-mode Doppler. TWIN A: PRESENTATION: Vertex PLACENTA LOCATION: Posterior without previa AMNIOTIC FLUID: Normal MEASUREMENTS: 1. Biparietal Diameter: 3.4 cm; 16.4 wks 2. Occipital Frontal Diameter: 3.8 cm 3. Head Circumference: 12.3 cm; 16.2 wks 4. Abdominal Circumference: 11.5 cm; 17.3 wks 5. Femur Length: 2.0 cm; 16.0 wks 6. Humerus Length: 6 2.2 cm; 16.5 wks 7. Tibia Length: 1.7 cm; 16.0 wks 8. Ulna Length: 1.95 cm; 16.5 wks 9. Lateral ventricle: 0.51 cm 10. Cerebellum: 1.6 cm; 17.2 wks 11. Cisterna Magna: 0.4 cm 12. Nuchal Fold: 2.1 mm 13. Heart Rate: 149 beats per minute GESTATIONAL AGE: Established GA: 16.6 wks GA from [facility]: 16.3 wks WEIGHT: EFW: 148 grams (0 lbs 5 oz).-- 10 %. ANATOMY: 1. Cranium: Normal 2. BPD Level: Normal 3. Cerebral ventricles: Normal 4. face: Profile was suboptimal due to position 5. Cardiac anatomy: Cardiac anatomy was limited due to early GA and position 6. Heart chambers: Suboptimal 7. Diaphragm: Normal 8. Abdominal wall: Normal 9. Spine: Limited 10. Stomach: Normal 11. 3 vessel cord: Normal 12. Upper extremity: Suboptimal 13. Lower extremity: Suboptimal 14. Right Kidney: Normal 15. Left Kidney: Normal 16. Bladder: Normal 17. Genitalia: Male TWIN B: PRESENTATION: Transverse, maternal right PLACENTA LOCATION: Anterior without previa AMNIOTIC FLUID: Normal MEASUREMENTS: 1. Biparietal Diameter: 3.4 cm; 16.3 wks 2. Occipital Frontal Diameter: 4.3 cm 3. Head Circumference: 12.7 cm; 16.3 wks 4. Abdominal Circumference: 9.9 cm; 16.0 wks 5. Femur Length: 2.21 cm; 16.3 wks 6. Humerus Length: 2.2 cm; 16.5 wks 7. Tibia Length: 1.9 cm; 16.4 wks 8. Ulna Length: 2.0 cm; 16.6 wks 9. Lateral ventricle: 0.5 cm 10. Cerebellum: 1.7 cm; 17.5 wks 11. Cisterna Magna: 0.15 cm 12. Nuchal Fold: 2.0 mm 13. Heart Rate: 142 beats per minute GESTATIONAL AGE: Established GA: 16.6 wks GA from [facility]: 16.3 wks WEIGHT: EFW: 148 grams (0 lbs 5 oz).-- 10 %. ANATOMY: 1. Cranium: Normal 2. BPD Level: Normal 3. Cerebral ventricles: Normal 4. face: Normal 5. Cardiac anatomy: Cardiac views were suboptimal due to early GA and position 6. Heart chambers: Limited 7. Diaphragm: Normal 8. Abdominal wall: Normal 9. Spine: Suboptimal 10. Stomach: Normal 11. 3 vessel cord: Normal 12. Upper extremity: Normal 13. Lower extremity: Suboptimal 14. Right Kidney: Suboptimal 15. Left Kidney: Suboptimal 16. Bladder: Normal 17. Genitalia: Female ESTIMATED DATE OF DELIVERY: 1. Established MAYUR: 16.6 2. MAYUR from [facility]: 16.3 Cervical length: 3.8 cm (T/V) Ovaries were suboptimally seen. US/US OB /maternal detail IMPRESSION: 1. Concordant and active dichorionic, diamniotic twins. Thick membranes the twins are noted. 2. The anatomic survey was suboptimal due to early GA and position. However no abnormalities were seen in the visualized anatomy. 3. Normal cervical length I reviewed today's findings and discussed the limited nature of the ultrasound. The twins are concordant and the cervical length is within normal limits. She informs me that her and IPT was inconclusive due to low fraction. We discussed the number of options including the amniocentesis. After reviewing the risks and benefits, she declined the invasive testing. At this time she is planning to return in approximately 2-3 weeks for survey. Repeating at N IPT is not recommended after 2 inconclusive tests. Serum cause screening isn't available, but has higher than 5% false-positive rate for multiple gestation. Thank you very much for this referral. Total time 30 minutes. The time spent was devoted to counseling the patient about the disease and diagnosis, coordinating care including reviewing her records, pertinent lab data and studies, as well as discussing diagnostic evaluation and workup, plan therapeutic interventions and future disposition of care. This includes any additional research needed to obtain further information in formulating the plan of care of this patient. This note was generated with a voice recognition program. Please excuse any errors which may have been overlooked during my review of this note. Sometimes these errors may affect the content or meaning of a given sentence.
== END 2020-09-09 09:08 | disposition home or self-care (01) ==
LOC: HO.US 09:07
PROVIDERS: PCP Internal Medicine; Visit Provider Obstetrics & Gynecology
DX: O30.001 Twin pregnancy, unspecified number of placenta and unspecified number of amniotic sacs, first trimester (principal)
CPT/HCPCS: 76811; 76816; 76817

== ENCOUNTER 2020-09-23 09:13 | Outpatient (REF) | payer OTHER, SELFPAY ==
--- NOTE | ~2020-09-23 | US_ITS ---
EXAMINATION: US OBSTETRICAL (Twin Growth and BPP ) CLINICAL INFORMATION: 24-year-old at the 18.6 weeks of gestation Dichorionic diamniotic twins Follow-up anatomy COMPARISON: 09/09/2020 TECHNIQUE: Real time transabdominal imaging with color and M-mode Doppler. TWIN A: PRESENTATION: Vertex, left, male PLACENTA LOCATION: Anterior without previa AMNIOTIC FLUID: Normal MEASUREMENTS: 1. Biparietal Diameter: 4.0 cm; 19.1 wks 2. Head Circumference: 14.8 cm; 18.0 wks 3. Abdominal Circumference: 13.2 cm; 18.6 wks 4. Femur Length: 2.9 cm; 19.0 wks 5. Heart Rate: 152 beats per minute WEIGHT: EFW: 253 grams (0 lbs 9 oz)--37 %. ANATOMY: Following views were obtained and are within normal limits: Profile, nasal bone, four-chamber view of the heart, into ventricular septum, LVOT and RVOT, aortic and ductal arches, three-vessel view, spine, right and left hands GESTATIONAL AGE: 1. Established GA: 18.6 wks 2. GA from [facility]: 18.4 wks TWIN B: PRESENTATION: Transverse, right, female PLACENTA LOCATION: Posterior without previa AMNIOTIC FLUID: Normal MEASUREMENTS: 1. Biparietal Diameter: 4.0 cm; 13.2 wks 2. Head Circumference: 14.9 cm; 18.0 wks 3. Abdominal Circumference: 13.0 cm; 18.4 wks 4. Femur Length: 2.7 cm; 19.1 wks 5. Heart Rate: 153 beats per minute WEIGHT: EFW: 234 grams (0 lbs 8 oz)--17 %. ANATOMY: Following views were within normal limits: The four-chamber view of the heart, ventricular septum, LVOT and RVOT, aortic and ductal arches, three-vessel view, bilateral kidneys, spine, right and left legs. GESTATIONAL AGE: 1. Established GA: 18.6 wks 2. GA from [facility]: 18.2 wks ESTIMATED DATE OF DELIVERY: 1. Established MAYUR: 02/18/2021 2. MAYUR from [facility]: 02/22/2021 US/US OB follow up IMPRESSION: 1. Appropriately grown, concordant, DICHORIONIC DIAMNIOTIC twins. 2. Previously limited the anatomy were seen in today's evaluation. No abnormalities were seen in visualized anatomy. Completes the survey. 3. Normal and equal amount of amniotic fluid on both twins. We discussed today's ultrasound findings. Gave her reassurance that the twins are concordant and appropriately grown. In addition, the follow-up survey showed normal anatomy in both twins. Cervical length was not repeated from 2 weeks ago. Follow up in 3 weeks Thank you very much for this referral. Total time 20 minutes. The time spent was devoted to counseling the patient about the disease and diagnosis, coordinating care including reviewing her records, pertinent lab data and studies, as well as discussing diagnostic evaluation and workup, plan therapeutic interventions and future disposition of care. This includes any additional research needed to obtain further information in formulating the plan of care of this patient. This note was generated with a voice recognition program. Please excuse any errors which may have been overlooked during my review of this note. Sometimes these errors may affect the content or meaning of a given sentence.
--- NOTE | ~2020-09-23 | US_ITS ---
EXAMINATION: US OBSTETRICAL (Twin Growth and BPP ) CLINICAL INFORMATION: 24-year-old at the 18.6 weeks of gestation Dichorionic diamniotic twins Follow-up anatomy COMPARISON: 09/09/2020 TECHNIQUE: Real time transabdominal imaging with color and M-mode Doppler. TWIN A: PRESENTATION: Vertex, left, male PLACENTA LOCATION: Anterior without previa AMNIOTIC FLUID: Normal MEASUREMENTS: 1. Biparietal Diameter: 4.0 cm; 19.1 wks 2. Head Circumference: 14.8 cm; 18.0 wks 3. Abdominal Circumference: 13.2 cm; 18.6 wks 4. Femur Length: 2.9 cm; 19.0 wks 5. Heart Rate: 152 beats per minute WEIGHT: EFW: 253 grams (0 lbs 9 oz)--37 %. ANATOMY: Following views were obtained and are within normal limits: Profile, nasal bone, four-chamber view of the heart, into ventricular septum, LVOT and RVOT, aortic and ductal arches, three-vessel view, spine, right and left hands GESTATIONAL AGE: 1. Established GA: 18.6 wks 2. GA from [facility]: 18.4 wks TWIN B: PRESENTATION: Transverse, right, female PLACENTA LOCATION: Posterior without previa AMNIOTIC FLUID: Normal MEASUREMENTS: 1. Biparietal Diameter: 4.0 cm; 13.2 wks 2. Head Circumference: 14.9 cm; 18.0 wks 3. Abdominal Circumference: 13.0 cm; 18.4 wks 4. Femur Length: 2.7 cm; 19.1 wks 5. Heart Rate: 153 beats per minute WEIGHT: EFW: 234 grams (0 lbs 8 oz)--17 %. ANATOMY: Following views were within normal limits: The four-chamber view of the heart, ventricular septum, LVOT and RVOT, aortic and ductal arches, three-vessel view, bilateral kidneys, spine, right and left legs. GESTATIONAL AGE: 1. Established GA: 18.6 wks 2. GA from [facility]: 18.2 wks ESTIMATED DATE OF DELIVERY: 1. Established MAYUR: 02/18/2021 2. MAYUR from [facility]: 02/22/2021 US/ OB f/u add gest IMPRESSION: 1. Appropriately grown, concordant, DICHORIONIC DIAMNIOTIC twins. 2. Previously limited the anatomy were seen in today's evaluation. No abnormalities were seen in visualized anatomy. Completes the survey. 3. Normal and equal amount of amniotic fluid on both twins. We discussed today's ultrasound findings. Gave her reassurance that the twins are concordant and appropriately grown. In addition, the follow-up survey showed normal anatomy in both twins. Cervical length was not repeated from 2 weeks ago. Follow up in 3 weeks Thank you very much for this referral. Total time 20 minutes. The time spent was devoted to counseling the patient about the disease and diagnosis, coordinating care including reviewing her records, pertinent lab data and studies, as well as discussing diagnostic evaluation and workup, plan therapeutic interventions and future disposition of care. This includes any additional research needed to obtain further information in formulating the plan of care of this patient. This note was generated with a voice recognition program. Please excuse any errors which may have been overlooked during my review of this note. Sometimes these errors may affect the content or meaning of a given sentence.
== END 2020-09-23 09:14 | disposition home or self-care (01) ==
LOC: HO.US 09:13
PROVIDERS: Visit Provider Obstetrics & Gynecology
DX: O13.1 Gestational [pregnancy-induced] hypertension without significant proteinuria, first trimester (principal); O30.001 Twin pregnancy, unspecified number of placenta and unspecified number of amniotic sacs, first trimester
CPT/HCPCS: 76816

== ENCOUNTER → 2020-10-07 14:36 | Outpatient (BNVA) | payer OTHER, SELFPAY | PROVIDERS: PCP Internal Medicine; Visit Provider Advanced Practice Midwife | DX: O99.212 Obesity complicating pregnancy, second trimester (principal); E66.01 Morbid (severe) obesity due to excess calories; O30.002 Twin pregnancy, unspecified number of placenta and unspecified number of amniotic sacs, second trimester; Z3A.20 20 weeks gestation of pregnancy | CPT/HCPCS: 81003; 99212 ==

== ENCOUNTER 2020-10-14 09:43 | Outpatient (REF) | payer OTHER, SELFPAY ==
--- NOTE | ~2020-10-14 | US_ITS ---
EXAMINATION: US OBSTETRICAL (Twin Growth and BPP ) CLINICAL INFORMATION: 24-year-old at 21.6 weeks of gestation Dichorionic diamniotic twins High BMI Size date discrepancy COMPARISON: 09/23/2020 TECHNIQUE: Real time transabdominal imaging with color and M-mode Doppler. Transvaginal ultrasound was performed using an endovaginal probe. TWIN A: Maternal right, male PRESENTATION: Vertex PLACENTA LOCATION: Anterior without previa AMNIOTIC FLUID: Normal MEASUREMENTS: 1. Biparietal Diameter: 5.1 cm; 21.3 wks 2. Head Circumference: 19.2 cm; 21.4 wks 3. Abdominal Circumference: 17.2 cm; 22.1 wks 4. Femur Length: 3.8 cm; 22.1 wks 5. Heart Rate: 152 beats per minute WEIGHT: EFW: 473 grams (1 lbs 1 oz)--55 %. ANATOMY: Normal views of lateral ventricles, posterior fossa, four-chamber heart, stomach, kidneys and urinary bladder. GESTATIONAL AGE: 1. Established GA: 21.6 wks 2. GA from [facility]: 21.6 wks TWIN B: left fundal, female PRESENTATION: Breech PLACENTA LOCATION: Posterior without previa AMNIOTIC FLUID: Normal MEASUREMENTS: 1. Biparietal Diameter: 5.0 cm; 21.2 wks 2. Head Circumference: 19.4 cm; 1.5 wks 3. Abdominal Circumference: 15.7 cm; 0.6 wks 4. Femur Length: 3.6 cm; 21.3 wks 5. Heart Rate: 136 beats per minute WEIGHT: EFW: 433 grams (0 lbs 15 oz)--29 %. ANATOMY: Normal views of the lateral ventricles, posterior fossa, four-chamber view, stomach, kidneys, urinary bladder. GESTATIONAL AGE: 1. Established GA: 21.6 wks 2. GA from [facility]: 21.4 wks ESTIMATED DATE OF DELIVERY: 1. Established MAYUR: 02/18/2021 2. MAYUR from [facility]: 02/20/2021 CERVIX: 4.1 cm (T/V) US/US OB transvaginal IMPRESSION: 1. Appropriately grown, concordant, DICHORIONIC DIAMNIOTIC twins. 2. Normal AFV x 2 3. Normal cervical length Reassurance given regarding the Twin growth. They both have the equal and normal amount of amniotic fluid volume. Both twins are active. The cervical length is within normal limits. Patient denies symptoms or signs of labor. She is also reporting active movements. We reviewed some of the complications associated with twin gestations such as increased risk of gestational diabetes, preeclampsia, IUGR in labor. Follow up in 4 weeks (scheduled). Thank you very much for this referral. Total time 30 minutes. The time spent was devoted to counseling the patient about the disease and diagnosis, coordinating care including reviewing her records, pertinent lab data and studies, as well as discussing diagnostic evaluation and workup, plan therapeutic interventions and future disposition of care. This includes any additional research needed to obtain further information in formulating the plan of care of this patient. This note was generated with a voice recognition program. Please excuse any errors which may have been overlooked during my review of this note. Sometimes these errors may affect the content or meaning of a given sentence.
--- NOTE | ~2020-10-14 | US_ITS ---
EXAMINATION: US OBSTETRICAL (Twin Growth and BPP ) CLINICAL INFORMATION: 24-year-old at 21.6 weeks of gestation Dichorionic diamniotic twins High BMI Size date discrepancy COMPARISON: 09/23/2020 TECHNIQUE: Real time transabdominal imaging with color and M-mode Doppler. Transvaginal ultrasound was performed using an endovaginal probe. TWIN A: Maternal right, male PRESENTATION: Vertex PLACENTA LOCATION: Anterior without previa AMNIOTIC FLUID: Normal MEASUREMENTS: 1. Biparietal Diameter: 5.1 cm; 21.3 wks 2. Head Circumference: 19.2 cm; 21.4 wks 3. Abdominal Circumference: 17.2 cm; 22.1 wks 4. Femur Length: 3.8 cm; 22.1 wks 5. Heart Rate: 152 beats per minute WEIGHT: EFW: 473 grams (1 lbs 1 oz)--55 %. ANATOMY: Normal views of lateral ventricles, posterior fossa, four-chamber heart, stomach, kidneys and urinary bladder. GESTATIONAL AGE: 1. Established GA: 21.6 wks 2. GA from [facility]: 21.6 wks TWIN B: left fundal, female PRESENTATION: Breech PLACENTA LOCATION: Posterior without previa AMNIOTIC FLUID: Normal MEASUREMENTS: 1. Biparietal Diameter: 5.0 cm; 21.2 wks 2. Head Circumference: 19.4 cm; 1.5 wks 3. Abdominal Circumference: 15.7 cm; 0.6 wks 4. Femur Length: 3.6 cm; 21.3 wks 5. Heart Rate: 136 beats per minute WEIGHT: EFW: 433 grams (0 lbs 15 oz)--29 %. ANATOMY: Normal views of the lateral ventricles, posterior fossa, four-chamber view, stomach, kidneys, urinary bladder. GESTATIONAL AGE: 1. Established GA: 21.6 wks 2. GA from [facility]: 21.4 wks ESTIMATED DATE OF DELIVERY: 1. Established [facility]UR: 02/18/2021 2. MAYUR from [facility]: 02/20/2021 CERVIX: 4.1 cm (T/V) US/US OB f/u add gest IMPRESSION: 1. Appropriately grown, concordant, DICHORIONIC DIAMNIOTIC twins. 2. Normal AFV x 2 3. Normal cervical length Reassurance given regarding the Twin growth. They both have the equal and normal amount of amniotic fluid volume. Both twins are active. The cervical length is within normal limits. Patient denies symptoms or signs of labor. She is also reporting active movements. We reviewed some of the complications associated with twin gestations such as increased risk of gestational diabetes, preeclampsia, IUGR in labor. Follow up in 4 weeks (scheduled). Thank you very much for this referral. Total time 30 minutes. The time spent was devoted to counseling the patient about the disease and diagnosis, coordinating care including reviewing her records, pertinent lab data and studies, as well as discussing diagnostic evaluation and workup, plan therapeutic interventions and future disposition of care. This includes any additional research needed to obtain further information in formulating the plan of care of this patient. This note was generated with a voice recognition program. Please excuse any errors which may have been overlooked during my review of this note. Sometimes these errors may affect the content or meaning of a given sentence.
--- NOTE | ~2020-10-14 | US_ITS ---
EXAMINATION: US OBSTETRICAL (Twin Growth and BPP ) CLINICAL INFORMATION: 24-year-old at 21.6 weeks of gestation Dichorionic diamniotic twins High BMI Size date discrepancy COMPARISON: 09/23/2020 TECHNIQUE: Real time transabdominal imaging with color and M-mode Doppler. Transvaginal ultrasound was performed using an endovaginal probe. TWIN A: Maternal right, male PRESENTATION: Vertex PLACENTA LOCATION: Anterior without previa AMNIOTIC FLUID: Normal MEASUREMENTS: 1. Biparietal Diameter: 5.1 cm; 21.3 wks 2. Head Circumference: 19.2 cm; 21.4 wks 3. Abdominal Circumference: 17.2 cm; 22.1 wks 4. Femur Length: 3.8 cm; 22.1 wks 5. Heart Rate: 152 beats per minute WEIGHT: EFW: 473 grams (1 lbs 1 oz)--55 %. ANATOMY: Normal views of lateral ventricles, posterior fossa, four-chamber heart, stomach, kidneys and urinary bladder. GESTATIONAL AGE: 1. Established GA: 21.6 wks 2. GA from [facility]: 21.6 wks TWIN B: left fundal, female PRESENTATION: Breech PLACENTA LOCATION: Posterior without previa AMNIOTIC FLUID: Normal MEASUREMENTS: 1. Biparietal Diameter: 5.0 cm; 21.2 wks 2. Head Circumference: 19.4 cm; 1.5 wks 3. Abdominal Circumference: 15.7 cm; 0.6 wks 4. Femur Length: 3.6 cm; 21.3 wks 5. Heart Rate: 136 beats per minute WEIGHT: EFW: 433 grams (0 lbs 15 oz)--29 %. ANATOMY: Normal views of the lateral ventricles, posterior fossa, four-chamber view, stomach, kidneys, urinary bladder. GESTATIONAL AGE: 1. Established GA: 21.6 wks 2. GA from [facility]: 21.4 wks ESTIMATED DATE OF DELIVERY: 1. Established [facility]UR: 02/18/2021 2. MAYUR from [facility]: 02/20/2021 CERVIX: 4.1 cm (T/V) US/US OB follow up IMPRESSION: 1. Appropriately grown, concordant, DICHORIONIC DIAMNIOTIC twins. 2. Normal AFV x 2 3. Normal cervical length Reassurance given regarding the Twin growth. They both have the equal and normal amount of amniotic fluid volume. Both twins are active. The cervical length is within normal limits. Patient denies symptoms or signs of labor. She is also reporting active movements. We reviewed some of the complications associated with twin gestations such as increased risk of gestational diabetes, preeclampsia, IUGR in labor. Follow up in 4 weeks (scheduled). Thank you very much for this referral. Total time 30 minutes. The time spent was devoted to counseling the patient about the disease and diagnosis, coordinating care including reviewing her records, pertinent lab data and studies, as well as discussing diagnostic evaluation and workup, plan therapeutic interventions and future disposition of care. This includes any additional research needed to obtain further information in formulating the plan of care of this patient. This note was generated with a voice recognition program. Please excuse any errors which may have been overlooked during my review of this note. Sometimes these errors may affect the content or meaning of a given sentence.
== END 2020-10-14 09:44 | disposition home or self-care (01) ==
LOC: HO.US 09:43
PROVIDERS: Visit Provider Obstetrics & Gynecology
DX: O30.002 Twin pregnancy, unspecified number of placenta and unspecified number of amniotic sacs, second trimester (principal); O99.214 Obesity complicating childbirth; E66.01 Morbid (severe) obesity due to excess calories; Z87.59 Personal history of other complications of pregnancy, childbirth and the puerperium
CPT/HCPCS: 76816; 76817

== ENCOUNTER → 2020-11-03 10:46 | Outpatient (BNVA) | payer OTHER, SELFPAY | PROVIDERS: PCP Internal Medicine; Visit Provider Obstetrics & Gynecology | DX: O16.2 Unspecified maternal hypertension, second trimester (principal); O30.042 Twin pregnancy, dichorionic/diamniotic, second trimester; O99.212 Obesity complicating pregnancy, second trimester; E66.01 Morbid (severe) obesity due to excess calories; Z88.6 Allergy status to analgesic agent; Z91.018 Allergy to other foods; Z3A.24 24 weeks gestation of pregnancy | CPT/HCPCS: 99212 ==

== ENCOUNTER → 2020-11-08 09:26 | Outpatient (BNVA) | payer OTHER, SELFPAY | PROVIDERS: PCP Internal Medicine; Visit Provider Advanced Practice Midwife | DX: Z34.92 Encounter for supervision of normal pregnancy, unspecified, second trimester (principal); Z3A.25 25 weeks gestation of pregnancy | CPT/HCPCS: 99212 ==

== ENCOUNTER 2020-11-11 13:53 | Outpatient (REF) | payer OTHER, SELFPAY ==
--- NOTE | ~2020-11-11 | US_ITS ---
EXAMINATION: US OBSTETRICAL (Twin Growth and BPP ) CLINICAL INFORMATION: 24-year-old at the 25.6 weeks of gestation Dichorionic diamniotic twins High BMI COMPARISON: 09/14/2020 TECHNIQUE: Real time transabdominal imaging with color and M-mode Doppler. TWIN A: PRESENTATION: Transverse, maternal left, male PLACENTA LOCATION: Posterior without previa AMNIOTIC FLUID: Normal MEASUREMENTS: 1. Biparietal Diameter: 6.0 cm; 24.5 wks 2. Head Circumference: 22.8 cm; 24.6 wks 3. Abdominal Circumference: 21.2 cm; 25.5 wks 4. Femur Length: 4.7 cm; 25.5 wks 5. Heart Rate: 146 beats per minute WEIGHT: EFW: 818 grams (1 lbs 13 oz)--26 %. ANATOMY: Lateral ventricles, four-chamber view of the heart, stomach, urinary bladder and kidneys are within normal limits GESTATIONAL AGE: 1. Established GA: 25.6 wks 2. GA from AUA: 25.2 wks TWIN B: PRESENTATION: Transverse, maternal right, female PLACENTA LOCATION: Anterior without previa AMNIOTIC FLUID: Normal MEASUREMENTS: 1. Biparietal Diameter: 6.2 cm; 25.2 wks 2. Head Circumference: 22.6 cm; 24.5 wks 3. Abdominal Circumference: 21.0 cm; 25.4 wks 4. Femur Length: 4.9 cm; 26.4 wks 5. Heart Rate: 143 beats per minute WEIGHT: EFW: 853 grams (1 lbs 14 oz)--36 %. ANATOMY: Normal posterior fossa, lateral ventricles, stomach, urinary bladder and kidneys GESTATIONAL AGE: 1. Established GA: 25.6 wks 2. GA from AUA: 25.4 wks ESTIMATED DATE OF DELIVERY: 1. Established MAYUR: 02/18/2021 2. MAYUR from AUA: 02/20/2021 CERVIX: Cervical length was not measured today as she reports having done 2 days ago the [facility]. Denies symptoms or signs of labor. US/US OB follow up IMPRESSION: 1. Appropriately grown, concordant, DICHORIONIC DIAMNIOTIC twins. 2. Normal AFV x 2 We discussed the increased risk of delivery. Gave her labor warnings. She was evaluated for contractions at [facility] last week. Has not had her 1 hour GLT. Follow up in 4 weeks (scheduled). Thank you very much for this referral. Total time 20 minutes. The time spent was devoted to counseling the patient about the disease and diagnosis, coordinating care including reviewing her records, pertinent lab data and studies, as well as discussing diagnostic evaluation and workup, plan therapeutic interventions and future disposition of care. This includes any additional research needed to obtain further information in formulating the plan of care of this patient. This note was generated with a voice recognition program. Please excuse any errors which may have been overlooked during my review of this note. Sometimes these errors may affect the content or meaning of a given sentence.
--- NOTE | ~2020-11-11 | US_ITS ---
EXAMINATION: US OBSTETRICAL (Twin Growth and BPP ) CLINICAL INFORMATION: 24-year-old at the 25.6 weeks of gestation Dichorionic diamniotic twins High BMI COMPARISON: 09/14/2020 TECHNIQUE: Real time transabdominal imaging with color and M-mode Doppler. TWIN A: PRESENTATION: Transverse, maternal left, male PLACENTA LOCATION: Posterior without previa AMNIOTIC FLUID: Normal MEASUREMENTS: 1. Biparietal Diameter: 6.0 cm; 24.5 wks 2. Head Circumference: 22.8 cm; 24.6 wks 3. Abdominal Circumference: 21.2 cm; 25.5 wks 4. Femur Length: 4.7 cm; 25.5 wks 5. Heart Rate: 146 beats per minute WEIGHT: EFW: 818 grams (1 lbs 13 oz)--26 %. ANATOMY: Lateral ventricles, four-chamber view of the heart, stomach, urinary bladder and kidneys are within normal limits GESTATIONAL AGE: 1. Established GA: 25.6 wks 2. GA from AUA: 25.2 wks TWIN B: PRESENTATION: Transverse, maternal right, female PLACENTA LOCATION: Anterior without previa AMNIOTIC FLUID: Normal MEASUREMENTS: 1. Biparietal Diameter: 6.2 cm; 25.2 wks 2. Head Circumference: 22.6 cm; 24.5 wks 3. Abdominal Circumference: 21.0 cm; 25.4 wks 4. Femur Length: 4.9 cm; 26.4 wks 5. Heart Rate: 143 beats per minute WEIGHT: EFW: 853 grams (1 lbs 14 oz)--36 %. ANATOMY: Normal posterior fossa, lateral ventricles, stomach, urinary bladder and kidneys GESTATIONAL AGE: 1. Established GA: 25.6 wks 2. GA from AUA: 25.4 wks ESTIMATED DATE OF DELIVERY: 1. Established MAYUR: 02/18/2021 2. MAYUR from AUA: 02/20/2021 CERVIX: Cervical length was not measured today as she reports having done 2 days ago the [facility]. Denies symptoms or signs of labor. US/US OB f/u add gest IMPRESSION: 1. Appropriately grown, concordant, DICHORIONIC DIAMNIOTIC twins. 2. Normal AFV x 2 We discussed the increased risk of delivery. Gave her labor warnings. She was evaluated for contractions at [facility] last week. Has not had her 1 hour GLT. Follow up in 4 weeks (scheduled). Thank you very much for this referral. Total time 20 minutes. The time spent was devoted to counseling the patient about the disease and diagnosis, coordinating care including reviewing her records, pertinent lab data and studies, as well as discussing diagnostic evaluation and workup, plan therapeutic interventions and future disposition of care. This includes any additional research needed to obtain further information in formulating the plan of care of this patient. This note was generated with a voice recognition program. Please excuse any errors which may have been overlooked during my review of this note. Sometimes these errors may affect the content or meaning of a given sentence.
== END 2020-11-11 13:54 | disposition home or self-care (01) ==
LOC: HO.US 13:53
PROVIDERS: Visit Provider Obstetrics & Gynecology
DX: O30.002 Twin pregnancy, unspecified number of placenta and unspecified number of amniotic sacs, second trimester (principal)
CPT/HCPCS: 76816

== ENCOUNTER 2020-11-17 09:44 | Outpatient (REF) | payer OTHER, SELFPAY ==
[2020-11-17 13:09] LABS: Hematocrit 33.7 % (37-47); Hemoglobin 11.3 g/dl (12.0-16.0); Mean Corpuscular HGB Conc 33.5 g/dl (31.0-35.0); Mean Corpuscular Volume 89.4 fL (80-98); Mean Platelet Volume 10.9 fL (9.4-12.3); Platelet Count 296 X10*3/uL (160-400); Red Blood Count 3.77 X10*6/uL (4.20-5.50); Red Cell Distribution Width 12.8 % (11.0-16.0); White Blood Count 9.7 X10*3/uL (4.8-10.8)
[2020-11-17 13:21] LABS: Glucose 1 Hour PP 50gm Dose 105 mg/dL (60-140)
[2020-11-18 08:26] LABS: Syphilis Screen Nonreactive (Nonreactive)
== END 2020-11-17 09:45 | disposition home or self-care (01) ==
LOC: HO.LAB 09:44
PROVIDERS: PCP Internal Medicine; Visit Provider Obstetrics & Gynecology
DX: O30.002 Twin pregnancy, unspecified number of placenta and unspecified number of amniotic sacs, second trimester (principal); O99.212 Obesity complicating pregnancy, second trimester; E66.01 Morbid (severe) obesity due to excess calories; Z3A.26 26 weeks gestation of pregnancy
CPT/HCPCS: 36415; 85027; 86780; 99212

== ENCOUNTER 2021-01-07 13:28 | Outpatient (REF) | payer OTHER, SELFPAY | END 2021-01-07 13:29 | disposition home or self-care (01) | LOC: HO.LNP 13:28 | PROVIDERS: Visit Provider Physician Assistant | DX: Z20.822 Contact with and (suspected) exposure to COVID-19 (principal); J02.9 Acute pharyngitis, unspecified | CPT/HCPCS: U0003; U0005 ==

== ENCOUNTER 2021-05-28 21:48 | Emergency (ER) | payer OTHER, SELFPAY ==
--- NOTE | 2021-05-28 21:57 | PC.NURSE ---
PATIENT IN BATHROOM WHEN CLLED FOR TRIAGE
[2021-05-28 22:00] VITALS: BP 157/99; PULSE 109; RESP 16; TEMP 36.5; O2SAT 99; BMI 44.7
[2021-05-28 22:11] LABS: MANUAL DIFF FLAG NO
[2021-05-28 22:12] LABS: Basophils Percent Auto 0.3 % (0-2); Eosinophils Absolute Auto 0.1 X10*3/uL (0.0-0.4); Eosinophils Percent Auto 0.7 % (0-4); Hematocrit 39.8 % (37.0-47.0); Hemoglobin 13.4 g/dl (12.0-16.0); Imm Gran Abs Auto 0.04 X10*3/uL (0.00-0.03); Imm Gran Pct Auto 0.4 % (0.0-0.4); Lymphocytes Absolute Auto 1.4 X10*3/uL (1.2-4.9); Lymphocytes Percent Auto 14.1 % (20-40); Mean Corpuscular HGB Conc 33.7 g/dl (31.0-35.0); Mean Corpuscular Volume 89.2 fL (80.0-98.0); Mean Platelet Volume 9.9 fL (9.4-12.3); Monocytes Absolute Auto 0.8 X10*3/uL (0.1-1.2); Neutrophils Absolute Auto 7.4 x10*3/uL (2.0-8.3); Neutrophils Percent Auto 76.5 % (45-73); Platelet Count 324 X10*3/uL (160-400); Red Blood Count 4.46 X10*6/uL (4.20-5.50); Red Cell Distribution Width 12.9 % (11.0-16.0); White Blood Count 9.7 X10*3/uL (4.8-10.8)
[2021-05-28 22:22] LABS: COVID-19 Test Negative (Negative)
[2021-05-28 22:32] LABS: Alanine Aminotransferase 23 U/L (0-31); Albumin Level 4.3 g/dL (3.5-5.0); Alkaline Phosphatase 79 U/L (39-117); Anion Gap 13 (12-20); Aspartate Amino Transferase 14 U/L (5-31); Bilirubin Direct 0.3 mg/dL (0.0-0.5); Bilirubin Total 0.7 mg/dL (0.0-1.0); Blood Urea Nitrogen 12 mg/dL (9-16); Calcium 9.3 mg/dL (8.4-10.2); Carbon Dioxide 25 mmol/L (22-29); Chloride 104 mmol/L (96-108); Creatinine Clr Calc Pharmacy 131.2; Estimated Glomerular Filt Rate > 60; Glucose Random 105 mg/dL (60-115); Lipase 26 U/L (8-78); Potassium 4.1 mmol/L (3.3-5.1); Sodium 138 mmol/L (135-145); Total Protein 7.4 g/dL (6.5-8.0)
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
[2021-05-28 23:07] LABS: Appearance Urine CLEAR; Color Urine YELLOW; Glucose Urine UA NEG (NEG); Leukocyte Esterase Urine NEG (NEG); Nitrite Urine NEG (NEG); PH 5.5 (5.0-8.0); Specific Gravity - Urine >= 1.030 (1.005-1.025); UACC Culture Trigger NO; Urine Blood 1+ (NEG); Urine Ketones NEG (NEG); Urine Protein 2+ MG/DL (NEG-TRACE)
[2021-05-28 23:09] LABS: UPreg QC Valid YES; Urine Pregnancy NEGATIVE (NEGATIVE)
[2021-05-28 23:12] LABS: Bacteria Urine 1+ /LPF; Squamous Epithelial Cell Urine 2+ /LPF; WBC Urine 0 /HPF (0-4)
[2021-05-28] MEDS: Ketorolac Tromethamine 15 MG/ML VIAL IVPUSH (23:15)
[2021-05-28] MEDS: ondansetron HCL 4 MG/2 ML VIAL IVPUSH (23:16)
== END 2021-05-29 00:16 | disposition home or self-care (01) ==
PROVIDERS: Emergency Provider Emergency Medicine Emergency Medical Services; PCP Internal Medicine
DX: B34.9 Viral infection, unspecified (principal); M79.10 Myalgia, unspecified site; R50.9 Fever, unspecified; E86.0 Dehydration; R11.2 Nausea with vomiting, unspecified; R19.7 Diarrhea, unspecified; R51.9 Headache, unspecified; Z20.822 Contact with and (suspected) exposure to COVID-19; Z79.899 Other long term (current) drug therapy
CPT/HCPCS: 36415; 80053; 81001; 81025; 82248; 83690; 85025; 87635; 96374; 96375; 99284; J1885; J2405

== ENCOUNTER 2021-06-29 21:55 | Emergency (ER) | payer OTHER, SELFPAY ==
[2021-06-29 22:00] VITALS: BP 167/94; PULSE 96; RESP 18; TEMP 36.1; O2SAT 100; BMI 37.8
[2021-06-29] MEDS: methylPREDNISolone Sod Succ 125 MG/2 ML VIAL IVPUSH (22:23)
[2021-06-29] MEDS: diphenhydrAMINE HCL 50 MG/ML VIAL IVPUSH (22:25)
[2021-06-29] MEDS: Famotidine/PF 20 MG/2 ML VIAL IVPUSH (22:30)
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
[2021-06-29 23:15] VITALS: BP 107/48; PULSE 82; RESP 14; TEMP 36.7; O2SAT 100
== END 2021-06-29 23:48 | disposition home or self-care (01) ==
PROVIDERS: Emergency Provider Emergency Medicine
DX: L50.9 Urticaria, unspecified (principal); T78.40XA Allergy, unspecified, initial encounter; X58.XXXA Exposure to other specified factors, initial encounter
CPT/HCPCS: 96374; 96375; 99284; J1200; J2930

== ENCOUNTER 2021-11-23 13:57 | Outpatient (REF) | payer OTHER, SELFPAY ==
[2021-11-23 14:27] LABS: Binax Internal Control QC Valid; Binax Now Covid-19 Ag Negative (Negative); Binax Performed by: HO.BONILM
== END 2021-11-23 13:58 | disposition home or self-care (01) ==
LOC: HO.HMGCLDS 13:57
DX: Z20.822 Contact with and (suspected) exposure to COVID-19 (principal); J02.9 Acute pharyngitis, unspecified
CPT/HCPCS: 87811; C9803

== ENCOUNTER 2022-04-02 16:56 | Outpatient (REF) | payer OTHER, SELFPAY ==
[2022-04-02 19:19] LABS: Influenza A PCR NEGATIVE (Negative); Influenza B PCR NEGATIVE (Negative); Resp Syncy Virus RNA Qual PCR NEGATIVE (Negative); SARS COV2 PCR INHOUSE NEGATIVE (Negative)
== END 2022-04-02 16:57 | disposition home or self-care (01) ==
LOC: HO.LAB 16:56
PROVIDERS: Visit Provider Nurse Practitioner Family
DX: Z20.822 Contact with and (suspected) exposure to COVID-19 (principal); R09.89 Other specified symptoms and signs involving the circulatory and respiratory systems
CPT/HCPCS: 0241U

== ENCOUNTER 2022-05-31 10:36 | Outpatient (REF) | payer OTHER, SELFPAY ==
[2022-05-31 13:21] LABS: Influenza A PCR NEGATIVE (Negative); Influenza B PCR NEGATIVE (Negative); Resp Syncy Virus RNA Qual PCR NEGATIVE (Negative); SARS COV2 PCR INHOUSE NEGATIVE (Negative)
[2022-05-31 13:52] LABS: MANUAL DIFF FLAG NO
[2022-05-31 14:01] LABS: Appearance Urine Clear; Basophils Absolute Auto 0.1 X10*3/uL (0.0-0.2); Basophils Percent Auto 0.6 % (0-2); Color Urine Yellow; Eosinophils Absolute Auto 0.1 X10*3/uL (0.0-0.4); Eosinophils Percent Auto 1.3 % (0-4); Glucose Urine UA Negative (Negative); Hematocrit 38.3 % (37.0-47.0); Hemoglobin 12.8 g/dl (12.0-16.0); Imm Gran Abs Auto 0.05 X10*3/uL (0.00-0.03); Imm Gran Pct Auto 0.5 % (0.0-0.4); Leukocyte Esterase Urine Negative (Negative); Lymphocytes Absolute Auto 3.8 X10*3/uL (1.2-4.9); Lymphocytes Percent Auto 40.3 % (20-40); Mean Corpuscular HGB Conc 33.4 g/dl (31.0-35.0); Mean Corpuscular Hemoglobin 29.8 pg (27.0-33.0); Mean Corpuscular Volume 89.1 fL (80.0-98.0); Mean Platelet Volume 10.7 fL (9.4-12.3); Monocytes Absolute Auto 0.6 X10*3/uL (0.1-1.2); Monocytes Percent Auto 6.5 % (2-11); Neutrophils Absolute Auto 4.7 x10*3/uL (2.0-8.3); Neutrophils Percent Auto 50.8 % (45-73); Nitrite Urine Negative (Negative); PH 5.5 (5.0-9.0); Platelet Count 427 X10*3/uL (160-400); Red Cell Distribution Width 12.9 % (11.0-16.0); Urine Blood Negative (Negative); Urine Ketones Negative (Negative); Urine Protein Trace mg/dL (Neg-Trace); White Blood Count 9.4 X10*3/uL (4.8-10.8)
[2022-05-31 14:18] LABS: Alanine Aminotransferase 32 U/L (0-31); Albumin Level 4.1 g/dL (3.5-5.0); Alkaline Phosphatase 78 U/L (39-117); Anion Gap 14 (12-20); Aspartate Amino Transferase 18 U/L (5-31); Bilirubin Total 0.3 mg/dL (0.0-1.0); Blood Urea Nitrogen 11 mg/dL (9-16); Calcium 9.2 mg/dL (8.4-10.2); Carbon Dioxide 25 mmol/L (22-29); Chloride 105 mmol/L (96-108); Estimated Glomerular Filt Rate > 60; Glucose Random 82 mg/dL (60-115); Potassium 4.8 mmol/L (3.3-5.1); Sodium 139 mmol/L (135-145); Total Protein 7.2 g/dL (6.5-8.0)
[2022-05-31 14:41] LABS: Ferritin 49 ng/mL (10-122); TSH reflex Free T4 0.65 uIU/mL (0.32-4.0); Vitamin B12 515 pg/mL (200-900)
[2022-05-31 14:43] LABS: Troponin-I High Sensitivity < 3.5 ng/L (<3.5-17.0)
[2022-06-05 15:37] LABS: Vitamin D 25-OH, D2 <4 ng/mL; Vitamin D 25-OH, D3 10 ng/mL; Vitamin D 25-OH, Total 10 ng/mL (30-100)
== END 2022-05-31 10:37 | disposition home or self-care (01) ==
LOC: HO.HMGCLDS 10:36
PROVIDERS: PCP Internal Medicine; Visit Provider Internal Medicine
DX: Z20.822 Contact with and (suspected) exposure to COVID-19 (principal); R00.2 Palpitations; R07.9 Chest pain, unspecified; R10.9 Unspecified abdominal pain; R11.0 Nausea; R51.9 Headache, unspecified; R53.83 Other fatigue; R09.89 Other specified symptoms and signs involving the circulatory and respiratory systems
CPT/HCPCS: 0241U; 36415; 80053; 81003; 82306; 82607; 82728; 84443; 84484; 85025

== ENCOUNTER → 2022-06-14 14:03 | Outpatient (REF) | payer OTHER, SELFPAY | LOC: HO.SL 14:03 | PROVIDERS: PCP Internal Medicine; Visit Provider Internal Medicine | DX: G47.33 Obstructive sleep apnea (adult) (pediatric) (principal) | CPT/HCPCS: 95806 ==

== ENCOUNTER 2022-09-17 09:02 | Outpatient (REF) | payer OTHER, SELFPAY | END 2022-09-17 09:03 | disposition home or self-care (01) | LOC: HO.LNP 09:02 | PROVIDERS: PCP Internal Medicine; Visit Provider Obstetrics & Gynecology | DX: Z01.419 Encounter for gynecological examination (general) (routine) without abnormal findings (principal); N91.2 Amenorrhea, unspecified | CPT/HCPCS: 81025; 88142 ==

== ENCOUNTER 2022-09-24 09:54 | Outpatient (REF) | payer OTHER, SELFPAY ==
[2022-09-24 11:34] LABS: Hematocrit 39.1 % (37.0-47.0); Hemoglobin 13.1 g/dl (12.0-16.0); Mean Corpuscular HGB Conc 33.5 g/dl (31.0-35.0); Mean Corpuscular Hemoglobin 29.5 pg (27.0-33.0); Mean Corpuscular Volume 88.1 fL (80.0-98.0); Mean Platelet Volume 10.8 fL (9.4-12.3); Platelet Count 361 X10*3/uL (160-400); Red Blood Count 4.44 X10*6/uL (4.20-5.50); Red Cell Distribution Width 12.8 % (11.0-16.0); White Blood Count 8.6 X10*3/uL (4.8-10.8)
[2022-09-24 12:15] LABS: Alanine Aminotransferase 36 U/L (0-31); Albumin Level 4.1 g/dL (3.5-5.0); Alkaline Phosphatase 71 U/L (39-117); Anion Gap 13 (12-20); Aspartate Amino Transferase 23 U/L (5-31); Bilirubin Direct 0.1 mg/dL (0.0-0.5); Bilirubin Total 0.6 mg/dL (0.0-1.0); Blood Urea Nitrogen 10 mg/dL (9-16); Calcium 9.5 mg/dL (8.4-10.2); Carbon Dioxide 26 mmol/L (22-29); Chloride 105 mmol/L (96-108); Estimated Glomerular Filt Rate > 60; Glucose Random 81 mg/dL (60-115); Potassium 4.7 mmol/L (3.3-5.1); Sodium 139 mmol/L (135-145); Total Protein 7.3 g/dL (6.5-8.0)
[2022-09-24 12:20] LABS: Thyroid Stimulating Hormone 0.89 uIU/mL (0.32-4.0)
== END 2022-09-24 09:55 | disposition home or self-care (01) ==
LOC: HO.HMGCLDS 09:54
PROVIDERS: PCP Internal Medicine; Visit Provider Internal Medicine
DX: E55.9 Vitamin D deficiency, unspecified (principal); R53.83 Other fatigue
CPT/HCPCS: 36415; 80048; 80076; 82306; 84443; 85027

== ENCOUNTER → 2022-10-02 11:25 | Outpatient (BNVA) | payer OTHER, SELFPAY | PROVIDERS: PCP Internal Medicine; Visit Provider Obstetrics & Gynecology | DX: N91.2 Amenorrhea, unspecified (principal) | CPT/HCPCS: 99212 ==

== ENCOUNTER 2022-11-09 14:08 | Outpatient (AMB) | payer OTHER, SELFPAY ==
[2022-11-09 14:34] VITALS: BP 110/72; PULSE 84; O2SAT 99; BMI 48.4
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
== END 2022-11-09 15:16 | disposition home or self-care (01) ==
PROVIDERS: PCP Internal Medicine; Visit Provider Internal Medicine
DX: G47.30 Sleep apnea, unspecified (principal); E66.01 Morbid (severe) obesity due to excess calories; Z68.42 Body mass index [BMI] 45.0-49.9, adult
CPT/HCPCS: 99213

== ENCOUNTER 2022-12-20 15:35 | Outpatient (AMB) | payer OTHER, SELFPAY ==
[2022-12-20 15:50] VITALS: BP 122/74; PULSE 99; TEMP 36.6; O2SAT 98; BMI 47.8
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
== END 2022-12-20 16:22 | disposition home or self-care (01) ==
PROVIDERS: PCP Internal Medicine; Visit Provider Physician Assistant
DX: J06.9 Acute upper respiratory infection, unspecified (principal)
CPT/HCPCS: 99213

== ENCOUNTER 2023-01-06 00:12 | Emergency (ER) | payer OTHER, SELFPAY ==
--- NOTE | ~2023-01-06 | XR_ITS ---
EXAMINATION: XR ABDOMEN KUB CLINICAL INDICATION: Question constipation COMPARISON: None available. TECHNIQUE: AP view of the abdomen. FINDINGS: Bowel gas pattern is nonobstructive. Moderate stool is present within the colon. Limited assessment for free air with supine positioning. No suspicious calcifications are seen. No acute osseous findings are seen. XR/XR KUB IMPRESSION: Moderate volume of stool. Nonobstructive bowel gas pattern.
[2023-01-06 00:15] VITALS: BP 138/86; PULSE 102; RESP 18; TEMP 36.7; O2SAT 99; BMI 47.1
[2023-01-06 00:31] LABS: Basophils Absolute Auto 0.1 X10*3/uL (0.0-0.2); Basophils Percent Auto 0.4 % (0-2); Eosinophils Absolute Auto 0.1 X10*3/uL (0.0-0.4); Eosinophils Percent Auto 1.2 % (0-4); Hematocrit 38.4 % (37.0-47.0); Hemoglobin 12.9 g/dl (12.0-16.0); Imm Gran Abs Auto 0.04 X10*3/uL (0.00-0.03); Imm Gran Pct Auto 0.3 % (0.0-0.4); Lymphocytes Absolute Auto 4.2 X10*3/uL (1.2-4.9); Lymphocytes Percent Auto 36.7 % (20-40); MANUAL DIFF FLAG NO; Mean Corpuscular HGB Conc 33.6 g/dl (31.0-35.0); Mean Corpuscular Hemoglobin 29.6 pg (27.0-33.0); Mean Corpuscular Volume 88.1 fL (80.0-98.0); Mean Platelet Volume 10.2 fL (9.4-12.3); Monocytes Absolute Auto 0.7 X10*3/uL (0.1-1.2); Monocytes Percent Auto 6.1 % (2-11); Neutrophils Absolute Auto 6.3 x10*3/uL (2.0-8.3); Neutrophils Percent Auto 55.3 % (45-73); Platelet Count 391 X10*3/uL (160-400); Red Blood Count 4.36 X10*6/uL (4.20-5.50); Red Cell Distribution Width 12.8 % (11.0-16.0); White Blood Count 11.4 X10*3/uL (4.8-10.8)
[2023-01-06 00:47] LABS: Alanine Aminotransferase 27 U/L (0-31); Alkaline Phosphatase 74 U/L (39-117); Anion Gap 13 (12-20); Aspartate Amino Transferase 22 U/L (5-31); Bilirubin Total 0.2 mg/dL (0.0-1.0); Blood Urea Nitrogen 11 mg/dL (9-16); Calcium 9.9 mg/dL (8.4-10.2); Carbon Dioxide 21 mmol/L (22-29); Chloride 108 mmol/L (96-108); Creatinine Clr Calc Pharmacy 119.3; Estimated Glomerular Filt Rate > 60; Glucose Random 114 mg/dL (60-115); Potassium 3.7 mmol/L (3.3-5.1); Sodium 138 mmol/L (135-145); Total Protein 7.6 g/dL (6.5-8.0)
[2023-01-06] MEDS: Ketorolac Tromethamine 30 MG/ML VIAL IM (01:11)
[2023-01-06 01:14] VITALS: PULSE 88; RESP 14; TEMP 36.8; O2SAT 100
--- NOTE | 2023-01-06 01:45 | PC.NURSE ---
patient received IM toradol, patient states hx of rxn to [facility] but PA verbalizes okay with toradol. Pt states pain has decreased a little at this time
[2023-01-06 01:51] LABS: Appearance Urine Clear; Color Urine Yellow; Glucose Urine UA Negative (Negative); Leukocyte Esterase Urine Negative (Negative); Nitrite Urine Negative (Negative); Specific Gravity - Urine 1.025 (1.005-1.025); UMIC TRIGGER UACC YES; Urine Blood Negative (Negative); Urine Ketones Negative (Negative); Urine Protein 30 (1+) mg/dL (Neg-Trace)
[2023-01-06 01:52] LABS: Urine Pregnancy NEGATIVE (NEGATIVE)
[2023-01-06 01:53] LABS: UPreg QC Valid YES
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
[2023-01-06 01:56] LABS: Bacteria Urine None Seen (None Seen); Hyaline Casts Urine 0-2 /LPF (0-2); Squamous Epithelial Cell Urine 0-2 /HPF (0-2); WBC Urine 0-5 /HPF (0-5)
== END 2023-01-06 02:33 | disposition home or self-care (01) ==
PROVIDERS: Emergency Provider Emergency Medicine; PCP Internal Medicine
DX: R10.33 Periumbilical pain (principal); R11.2 Nausea with vomiting, unspecified; R33.9 Retention of urine, unspecified; M54.50 Low back pain, unspecified; Z79.899 Other long term (current) drug therapy
CPT/HCPCS: 36415; 74018; 80053; 81001; 81025; 85025; 99284; J1885

== ENCOUNTER 2023-01-09 08:17 | Outpatient (REF) | payer OTHER, SELFPAY ==
[2023-01-10 23:07] LABS: Prolactin 9.8 ng/mL
== END 2023-01-09 08:18 | disposition home or self-care (01) ==
LOC: HO.LAB 08:17
PROVIDERS: PCP Internal Medicine; Visit Provider Obstetrics & Gynecology
DX: N91.2 Amenorrhea, unspecified (principal)
CPT/HCPCS: 36415; 84146

== ENCOUNTER 2023-01-14 12:14 | Outpatient (AMB) | payer OTHER, SELFPAY ==
[2023-01-14 12:29] VITALS: BMI 48.1
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
[2023-01-16 13:05] VITALS: BMI 48.0
== END 2023-01-14 13:26 | disposition home or self-care (01) ==
PROVIDERS: PCP Internal Medicine; Visit Provider Dietitian, Registered
DX: E66.01 Morbid (severe) obesity due to excess calories (principal)

== ENCOUNTER → 2023-01-14 12:14 | Outpatient (BNVA) | payer OTHER, SELFPAY | PROVIDERS: PCP Internal Medicine; Visit Provider Dietitian, Registered | DX: E66.01 Morbid (severe) obesity due to excess calories (principal); Z68.42 Body mass index [BMI] 45.0-49.9, adult | CPT/HCPCS: 97802 ==

== ENCOUNTER 2023-01-23 11:46 | Outpatient (AMB) | payer OTHER, SELFPAY ==
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
[2023-01-23 11:54] VITALS: BP 124/82; BMI 48.0
== END 2023-01-23 13:04 | disposition home or self-care (01) ==
PROVIDERS: PCP Internal Medicine; Visit Provider Obstetrics & Gynecology
DX: Z30.430 Encounter for insertion of intrauterine contraceptive device (principal)
CPT/HCPCS: 58300

== ENCOUNTER 2023-01-23 11:46 | Outpatient (REF) | payer OTHER, SELFPAY ==
[2023-01-23 16:21] LABS: CT PCR NOT DETECTED (Not Detect.); NG PCR NOT DETECTED (Not Detect.)
== END 2023-01-23 11:47 | disposition home or self-care (01) ==
LOC: HO.LNP 11:46
PROVIDERS: PCP Internal Medicine; Visit Provider Obstetrics & Gynecology
DX: Z30.430 Encounter for insertion of intrauterine contraceptive device (principal); N91.2 Amenorrhea, unspecified; Z20.2 Contact with and (suspected) exposure to infections with a predominantly sexual mode of transmission
CPT/HCPCS: 0353U; 58300; J7298

== ENCOUNTER 2023-01-30 17:28 | Emergency (ER) | payer OTHER, SELFPAY ==
--- NOTE | ~2023-01-30 | XR_ITS ---
EXAMINATION: XR CHEST 2 VIEWS CLINICAL INFORMATION: Shortness of breath. COMPARISON: Chest radiographs dated 01/21/2019. TECHNIQUE: Frontal and lateral views of the chest were obtained. FINDINGS: The heart, great vessels, pulmonary vasculature and mediastinum are normal. The lungs show no focal infiltrate, effusion or pneumothorax. There is no acute osseous abnormality. XR/XR chest 2V IMPRESSION: No active cardiopulmonary disease.
[2023-01-30 17:59] VITALS: BP 153/93; PULSE 101; RESP 20; TEMP 36.9; O2SAT 100; BMI 48.0
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
[2023-01-30 19:22] LABS: Influenza A PCR NEGATIVE (Negative); Influenza B PCR NEGATIVE (Negative); Resp Syncy Virus RNA Qual PCR NEGATIVE (Negative); SARS COV2 PCR INHOUSE NEGATIVE (Negative)
--- NOTE | 2023-01-30 20:24 | PC.NURSE ---
Pt ca&ox4, no signs of distress. Pt with family member at bedside. plan of care ongoing.
== END 2023-01-30 20:32 | disposition home or self-care (01) ==
PROVIDERS: Physician Assistant; Emergency Provider Emergency Medicine; PCP Internal Medicine
DX: J45.909 Unspecified asthma, uncomplicated (principal); G47.33 Obstructive sleep apnea (adult) (pediatric); R06.02 Shortness of breath; Z20.822 Contact with and (suspected) exposure to COVID-19; Z20.828 Contact with and (suspected) exposure to other viral communicable diseases; Z79.899 Other long term (current) drug therapy
CPT/HCPCS: 0241U; 71046; 99282; 99283

== ENCOUNTER 2023-04-02 09:07 | Outpatient (AMB) | payer OTHER, SELFPAY ==
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
[2023-04-02 10:23] VITALS: BP 116/72; PULSE 77; TEMP 36.4; O2SAT 96
== END 2023-04-02 11:34 | disposition home or self-care (01) ==
PROVIDERS: PCP Internal Medicine; Visit Provider Internal Medicine
DX: R51.9 Headache, unspecified (principal)
CPT/HCPCS: 99213

== ENCOUNTER 2023-04-22 11:12 | Outpatient (AMB) | payer OTHER, SELFPAY ==
[2023-04-22 11:25] VITALS: BP 126/68; PULSE 84; TEMP 36.9; O2SAT 98; BMI 47.5
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
== END 2023-04-22 12:28 | disposition home or self-care (01) ==
PROVIDERS: PCP Internal Medicine; Visit Provider Nurse Practitioner Family
DX: N30.00 Acute cystitis without hematuria (principal); M54.9 Dorsalgia, unspecified
CPT/HCPCS: 81003; 99213

== ENCOUNTER 2023-05-04 09:35 | Outpatient (AMB) | payer OTHER, SELFPAY ==
[2023-05-04 11:40] VITALS: BP 128/74; PULSE 76; TEMP 36.6; O2SAT 97; BMI 47.5
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
== END 2023-05-04 12:07 | disposition home or self-care (01) ==
PROVIDERS: PCP Internal Medicine; Visit Provider Nurse Practitioner Acute Care
DX: J06.9 Acute upper respiratory infection, unspecified (principal)
CPT/HCPCS: 99051; 99213

== ENCOUNTER 2023-05-10 06:39 | Emergency (ER) | payer OTHER, SELFPAY ==
--- NOTE | ~2023-05-10 | CT_ITS ---
EXAMINATION: CT ABDOMEN AND PELVIS WITH CONTRAST CLINICAL INFORMATION: Left upper quadrant and left lower quadrant tenderness with diarrhea COMPARISON: None available. TECHNIQUE: Multidetector volumetric images were obtained from the superior aspect of the liver through the pubic symphysis following administration 85 mL of Omnipaque 350 intravenous contrast. Sagittal and coronal reformatted images were obtained on the technologist's workstation. Oral contrast: No This CT examination was performed using dose optimization techniques as appropriate, variously including the following: *Automated exposure control *Adjustment of mA and/or kV according to patient size (this includes techniques or standardized protocols for targeted exams where dose is matched to indication/reason for exam; i.e. extremities or head) *Use of iterative reconstruction technique DLP: 614 mGy-cm FINDINGS: LUNG BASES: The visualized lung bases are unremarkable. LIVER, GALLBLADDER, AND BILIARY TREE: The liver is normal in size, shape, and attenuation. No focal hepatic lesion or biliary ductal dilatation is present. The gallbladder is unremarkable with no evidence of radiopaque gallstones, gallbladder wall thickening, or obvious pericholecystic inflammatory changes. PANCREAS: Unremarkable. SPLEEN: Unremarkable. ADRENAL GLANDS: Unremarkable. KIDNEYS AND URETERS: The kidneys are normal in size, shape, and attenuation. No hydronephrosis, hydroureter, or calculi seen. No perinephric stranding. BLADDER: Unremarkable. GASTROINTESTINAL TRACT: There is scattered stool and gas seen throughout the colon without any significant distention. The small bowel loops are normal caliber. Appendix is normal caliber. The stomach is nondistended. No inflammatory process seen in the abdomen or pelvis. ABDOMINAL WALL: Tiny embolism hernia containing fat. LYMPH NODES: Normal. VASCULAR: Unremarkable. PELVIC VISCERA: The uterus is anteverted with a flipped IUD lying sideways. The long end of the IUD is in the left fundal uterus. The ovaries appear unremarkable. There is no free fluid in the cul-de-sac. OSSEOUS STRUCTURES: No aggressive lytic or sclerotic process seen. CT/CT abdomen pelvis w IV con IMPRESSION: 1. No acute intra-abdominal process seen. 2. Mild constipation. 3. Abnormal positioning of IUD within the uterus as described above. Fleischner guidelines were followed.
[2023-05-10 06:42] VITALS: BP 143/86; PULSE 89; RESP 16; TEMP 36.4; O2SAT 96; BMI 46.3
[2023-05-10 07:20] LABS: MANUAL DIFF FLAG NO
[2023-05-10 07:24] LABS: Basophils Percent Auto 0.4 % (0-2); Eosinophils Absolute Auto 0.2 X10*3/uL (0.0-0.4); Eosinophils Percent Auto 1.8 % (0-4); Hematocrit 38.2 % (37.0-47.0); Hemoglobin 12.9 g/dl (12.0-16.0); Imm Gran Abs Auto 0.04 X10*3/uL (0.00-0.03); Imm Gran Pct Auto 0.4 % (0.0-0.4); Lymphocytes Absolute Auto 4.4 X10*3/uL (1.2-4.9); Lymphocytes Percent Auto 40.7 % (20-40); Mean Corpuscular HGB Conc 33.8 g/dl (31.0-35.0); Mean Corpuscular Hemoglobin 29.2 pg (27.0-33.0); Mean Corpuscular Volume 86.4 fL (80.0-98.0); Mean Platelet Volume 9.9 fL (9.4-12.3); Monocytes Absolute Auto 0.6 X10*3/uL (0.1-1.2); Monocytes Percent Auto 5.6 % (2-11); Neutrophils Absolute Auto 5.5 x10*3/uL (2.0-8.3); Neutrophils Percent Auto 51.1 % (45-73); Platelet Count 400 X10*3/uL (160-400); Red Blood Count 4.42 X10*6/uL (4.20-5.50); Red Cell Distribution Width 12.9 % (11.0-16.0); White Blood Count 10.8 X10*3/uL (4.8-10.8)
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
[2023-05-10 07:43] LABS: Alanine Aminotransferase 18 U/L (0-31); Albumin Level 3.7 g/dL (3.5-5.0); Alkaline Phosphatase 66 U/L (39-117); Anion Gap 14 (12-20); Aspartate Amino Transferase 13 U/L (5-31); Bilirubin Total 0.2 mg/dL (0.0-1.0); Blood Urea Nitrogen 11 mg/dL (9-16); Calcium 9.6 mg/dL (8.4-10.2); Carbon Dioxide 21 mmol/L (22-29); Chloride 108 mmol/L (96-108); Creatinine Clr Calc Pharmacy 127.9; Estimated Glomerular Filt Rate > 60; Glucose Random 92 mg/dL (60-115); Potassium 4.1 mmol/L (3.3-5.1); Sodium 139 mmol/L (135-145); Total Protein 7.2 g/dL (6.5-8.0)
[2023-05-10 08:04] LABS: Appearance Urine Clear; Color Urine Yellow; Glucose Urine UA Negative (Negative); Leukocyte Esterase Urine Small (1+) (Negative); Nitrite Urine Negative (Negative); PH 5.5 (5.0-9.0); Specific Gravity - Urine >= 1.030 (1.005-1.025); UMIC TRIGGER UACC YES; Urine Blood Large (3+) (Negative); Urine Ketones Negative (Negative); Urine Protein Trace mg/dL (Neg-Trace)
[2023-05-10 08:09] LABS: Bacteria Urine Trace (None Seen); Hyaline Casts Urine 0-2 /LPF (0-2); RBC Urine >20 /HPF (0-2); UACC Culture Trigger YES; WBC Urine 21-50 /HPF (0-5)
[2023-05-10 09:06] LABS: HCG Quantitative < 2 mIU/mL
[2023-05-10] MEDS: Lidocaine 4 % Cream KIT 1 APPL TOPICAL (09:35)
[2023-05-10] MEDS: iohexoL 350 MG/ML 75 ML INFUS..BTL 85 ML IV (09:39)
--- NOTE | 2023-05-10 09:39 | PC.NURSE ---
pt off unit to CT
[2023-05-10 09:48] VITALS: BP 129/60; PULSE 64; RESP 19; TEMP 36.8; O2SAT 99
[2023-05-10 11:30] LABS: IDNOW Serial# 9DB6401D; Influenza A Negative (Negative); Influenza B2 Negative (Negative)
[2023-05-10 11:37] VITALS: BP 128/72; PULSE 71; RESP 19; TEMP 36.7; O2SAT 100
--- NOTE | 2023-05-10 11:51 | PC.NURSE ---
pt reports being unable to have a BM at this time. reports taking imodium last night and only passing gas at this time
== END 2023-05-10 12:24 | disposition home or self-care (01) ==
PROVIDERS: Registered Nurse Emergency; Emergency Provider Emergency Medicine; PCP Internal Medicine
DX: R19.7 Diarrhea, unspecified (principal); Z20.828 Contact with and (suspected) exposure to other viral communicable diseases
CPT/HCPCS: 36415; 74177; 80053; 81001; 81003; 83735; 84702; 85025; 87086; 87502; 99284; Q9967

== ENCOUNTER 2023-05-11 11:31 | Outpatient (REF) | payer OTHER, SELFPAY ==
[2023-05-11 12:33] LABS: CDiff Gene PCR NEGATIVE (Negative)
== END 2023-05-11 11:32 | disposition home or self-care (01) ==
LOC: HO.LNP 11:31
PROVIDERS: Visit Provider Registered Nurse Emergency
DX: R19.7 Diarrhea, unspecified (principal)
CPT/HCPCS: 87493; 87507

== ENCOUNTER 2023-05-13 11:36 | Outpatient (AMB) | payer OTHER, SELFPAY ==
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
[2023-05-13 11:46] VITALS: BP 130/70; BMI 46.1
== END 2023-05-13 13:23 | disposition home or self-care (01) ==
LOC: HO.HWS 11:36
PROVIDERS: PCP Internal Medicine; Visit Provider Obstetrics & Gynecology
DX: Z30.430 Encounter for insertion of intrauterine contraceptive device (principal); N91.2 Amenorrhea, unspecified; Z32.02 Encounter for pregnancy test, result negative
CPT/HCPCS: 58301; 99213

== ENCOUNTER → 2023-05-13 11:36 | Outpatient (BNVA) | payer OTHER, SELFPAY | PROVIDERS: PCP Internal Medicine; Visit Provider Obstetrics & Gynecology | DX: Z30.430 Encounter for insertion of intrauterine contraceptive device (principal); N91.2 Amenorrhea, unspecified; Z32.02 Encounter for pregnancy test, result negative | CPT/HCPCS: 58301; 81025; 99212 ==

== ENCOUNTER 2023-06-11 10:16 | Outpatient (AMB) | payer OTHER, SELFPAY ==
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
[2023-06-11 10:22] VITALS: BP 122/76; PULSE 83; O2SAT 97; BMI 47.1
== END 2023-06-11 10:49 | disposition home or self-care (01) ==
PROVIDERS: PCP Internal Medicine; Visit Provider Internal Medicine
DX: Z00.00 Encounter for general adult medical examination without abnormal findings (principal); E66.01 Morbid (severe) obesity due to excess calories; Z68.42 Body mass index [BMI] 45.0-49.9, adult; J45.909 Unspecified asthma, uncomplicated; F41.9 Anxiety disorder, unspecified
CPT/HCPCS: 99395

== ENCOUNTER 2023-06-30 06:56 | Emergency (ER) | payer OTHER, SELFPAY ==
[2023-06-30 07:07] VITALS: BP 142/97; PULSE 87; RESP 16; TEMP 36.7; O2SAT 99; BMI 44.9
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
[2023-06-30] MEDS: ondansetron HCL 4 MG/2 ML VIAL IVPUSH (07:52)
[2023-06-30 07:53] LABS: MANUAL DIFF FLAG NO
[2023-06-30 07:54] LABS: Basophils Percent Auto 0.4 % (0-2); Eosinophils Absolute Auto 0.1 X10*3/uL (0.0-0.4); Eosinophils Percent Auto 1.3 % (0-4); Hematocrit 39.3 % (37.0-47.0); Hemoglobin 13.6 g/dl (12.0-16.0); Imm Gran Abs Auto 0.03 X10*3/uL (0.00-0.03); Imm Gran Pct Auto 0.3 % (0.0-0.4); Lymphocytes Absolute Auto 3.3 X10*3/uL (1.2-4.9); Mean Corpuscular HGB Conc 34.6 g/dl (31.0-35.0); Mean Corpuscular Hemoglobin 29.8 pg (27.0-33.0); Mean Corpuscular Volume 86.2 fL (80.0-98.0); Mean Platelet Volume 10.2 fL (9.4-12.3); Monocytes Absolute Auto 0.6 X10*3/uL (0.1-1.2); Monocytes Percent Auto 6.8 % (2-11); Neutrophils Percent Auto 55.2 % (45-73); Platelet Count 373 X10*3/uL (160-400); Red Blood Count 4.56 X10*6/uL (4.20-5.50); Red Cell Distribution Width 13.1 % (11.0-16.0); White Blood Count 9.1 X10*3/uL (4.8-10.8)
[2023-06-30 07:59] LABS: Appearance Urine Hazy; Color Urine Orange; Leukocyte Esterase Urine Small (1+) (Negative); PH 5.5 (5.0-9.0); Specific Gravity - Urine <= 1.005 (1.005-1.025); UMIC TRIGGER UACC YES; Urine Blood Small (1+) (Negative); Urine Ketones Negative (Negative); Urine Protein Trace mg/dL (Neg-Trace)
[2023-06-30 08:00] LABS: UPreg QC Valid YES; Urine Pregnancy NEGATIVE (NEGATIVE)
[2023-06-30 08:06] LABS: Bacteria Urine None Seen (None Seen); Hyaline Casts Urine 0-2 /LPF (0-2); RBC Urine 0-2 /HPF (0-2); Squamous Epithelial Cell Urine 0-2 /HPF (0-2); UACC Culture Trigger YES
[2023-06-30 08:13] LABS: Alanine Aminotransferase 28 U/L (0-31); Alkaline Phosphatase 74 U/L (39-117); Anion Gap 14 (12-20); Aspartate Amino Transferase 23 U/L (5-31); Bilirubin Total 0.3 mg/dL (0.0-1.0); Blood Urea Nitrogen 8 mg/dL (9-16); Calcium 9.2 mg/dL (8.4-10.2); Carbon Dioxide 24 mmol/L (22-29); Chloride 105 mmol/L (96-108); Creatinine Clr Calc Pharmacy 129.2; Estimated Glomerular Filt Rate > 60; Glucose Random 93 mg/dL (60-115); Potassium 4.5 mmol/L (3.3-5.1); Sodium 138 mmol/L (135-145); Total Protein 7.7 g/dL (6.5-8.0)
[2023-06-30 08:50] VITALS: BP 124/78; PULSE 90; RESP 16; TEMP 36.7; O2SAT 99
[2023-06-30] MEDS: cefuroxime axetiL 250 MG TABLET PO (08:51)
== END 2023-06-30 09:00 | disposition home or self-care (01) ==
PROVIDERS: Emergency Provider Emergency Medicine; PCP Internal Medicine
DX: N30.00 Acute cystitis without hematuria (principal); I10 Essential (primary) hypertension; J45.909 Unspecified asthma, uncomplicated
CPT/HCPCS: 36415; 80053; 81001; 81025; 85025; 87086; 87088; 87186; 96374; 99284; J2405

== ENCOUNTER 2023-07-29 17:13 | Emergency (ER) | payer OTHER, SELFPAY ==
--- NOTE | ~2023-07-29 | XR_ITS ---
EXAMINATION: XR CHEST CLINICAL INFORMATION: Cough. Upper respiratory symptoms. COMPARISON: Chest radiograph dated 01/30/2023. TECHNIQUE: 2 views of the chest were obtained. FINDINGS: The trachea is in normal anatomic position. Heart size is normal. There is no consolidation within either lung. No pleural effusion. No pneumothorax. No acute osseous abnormality. XR/XR chest 2V IMPRESSION: No acute cardiopulmonary disease. Stable appearance of the heart and lungs.
[2023-07-29 18:00] VITALS: BP 151/99; PULSE 108; RESP 20; TEMP 36.8; O2SAT 98; BMI 47.8
[2023-07-29 18:41] LABS: COVID-19 Test Negative (Negative); IDNOW Serial# 08D9AD1C; IDNOW Serial# 152EDE1D; Influenza A Negative (Negative); Influenza B2 Negative (Negative)
[2023-07-29 22:30] VITALS: BP 137/82; PULSE 74; RESP 16; TEMP 37; O2SAT 97
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
[2023-07-29 23:15] VITALS: BP 137/82; PULSE 74; RESP 16; TEMP 37; O2SAT 97
== END 2023-07-29 23:17 | disposition home or self-care (01) ==
PROVIDERS: Emergency Provider Internal Medicine; PCP Internal Medicine
DX: J45.901 Unspecified asthma with (acute) exacerbation (principal); J20.9 Acute bronchitis, unspecified; Z11.52 Encounter for screening for COVID-19
CPT/HCPCS: 71046; 87502; 87635; 99283; 99284

== ENCOUNTER 2023-08-09 11:05 | Outpatient (AMB) | payer OTHER, SELFPAY ==
[2023-08-09 11:31] VITALS: BP 122/74; PULSE 91; O2SAT 97; BMI 47.1
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
== END 2023-08-09 12:13 | disposition home or self-care (01) ==
PROVIDERS: PCP Internal Medicine; Visit Provider Internal Medicine
DX: J45.909 Unspecified asthma, uncomplicated (principal); E66.01 Morbid (severe) obesity due to excess calories; Z68.42 Body mass index [BMI] 45.0-49.9, adult
CPT/HCPCS: 99213

== ENCOUNTER 2023-08-09 12:14 | Outpatient (REF) | payer OTHER, SELFPAY ==
[2023-08-09 14:48] LABS: Cholesterol 177 mg/dL (<200); HDL Cholesterol 33 mg/dL (>40); LDL Cholesterol Calculated 115 mg/dL (<100); Triglycerides 146 mg/dL (<150)
== END 2023-08-09 12:15 | disposition home or self-care (01) ==
LOC: HO.HMGCLDS 12:14
PROVIDERS: PCP Internal Medicine; Visit Provider Internal Medicine
DX: Z00.00 Encounter for general adult medical examination without abnormal findings (principal)
CPT/HCPCS: 36415; 80061

== ENCOUNTER 2023-10-08 20:02 | Emergency (ER) | payer OTHER, SELFPAY ==
--- NOTE | ~2023-10-08 | US_ITS ---
EXAMINATION: US ABDOMEN LIMITED CLINICAL INFORMATION: Right upper quadrant tenderness. COMPARISON: CT abdomen/pelvis 05/10/2023. TECHNIQUE: Real-time imaging of the right upper quadrant abdominal viscera. FINDINGS: PANCREAS: Not well seen due to shadowing from overlying bowel gas. LIVER: Increased parenchymal echogenicity with an indeterminate focal ill-defined hypoechoic observation in the left hepatic lobe. No intrahepatic biliary ductal dilatation. GALLBLADDER: Partially underdistended limiting evaluation of wall thickening. No cholelithiasis. No pericholecystic free fluid. COMMON BILE DUCT: Normal in caliber measuring 0.3 cm in diameter. RIGHT KIDNEY: No hydronephrosis. No renal calculi or focal parenchymal lesions. The kidney measures 12.3 cm in maximum dimension. FREE FLUID: None. US/US abdomen limited IMPRESSION: Limited examination due to patient body habitus and shadowing from overlying bowel gas. 1. Increased hepatic parenchymal echogenicity suggesting hepatic steatosis. 2. Indeterminate ill-defined hypoechoic observation in the left hepatic lobe, possibly related with focal fatty sparing in a patient of this age. However, out of precaution further characterization with outpatient MRI could be obtained. Alternatively, short-term follow-up ultrasound could be obtained for reevaluation. 3. Limited evaluation of the gallbladder due to underdistention. No discrete calculi and no pericholecystic free fluid. Further evaluation with CT or HIDA as clinically warranted.
--- NOTE | ~2023-10-08 | CT_ITS ---
EXAMINATION: CT ABDOMEN AND PELVIS WITH CONTRAST CLINICAL INFORMATION: Right upper quadrant/epigastric pain, nausea. COMPARISON: Abdominal ultrasound earlier today. CT abdomen/pelvis 05/10/2023. TECHNIQUE: Multidetector volumetric images were obtained from the superior aspect of the liver through the pubic symphysis following administration 85 mL of Omnipaque 350 intravenous contrast. Sagittal and coronal reformatted images were obtained on the technologist's workstation. Oral contrast: No This CT examination was performed using dose optimization techniques as appropriate, variously including the following: *Automated exposure control *Adjustment of mA and/or kV according to patient size (this includes techniques or standardized protocols for targeted exams where dose is matched to indication/reason for exam; i.e. extremities or head) *Use of iterative reconstruction technique DLP: 926 mGy-cm FINDINGS: LUNG BASES: No focal consolidation or pleural effusion. LIVER, GALLBLADDER, AND BILIARY TREE: Enlarged liver with decreased attenuation suggestive of hepatic steatosis. Subtle fatty sparing of the central liver, most likely corresponding to the focal abnormality noted on recent ultrasound. No suspicious focal liver lesion. No biliary ductal dilatation. The gallbladder is unremarkable with no evidence of radiopaque gallstones, gallbladder wall thickening, or obvious pericholecystic inflammatory changes. PANCREAS: Unremarkable. SPLEEN: Unremarkable. ADRENAL GLANDS: Unremarkable. KIDNEYS AND URETERS: The kidneys are normal in size, shape, and attenuation. Too small to characterize hypodensity in the upper left kidney (7:71), for which no imaging follow-up is recommended. No hydronephrosis, hydroureter, or calculi seen. No perinephric stranding. BLADDER: Underdistended limiting evaluation. No significant perivesical inflammatory changes. GASTROINTESTINAL TRACT: Nonspecific moderate gastric distention with heterogeneous debris. The small bowel is nondilated. Normal appendix. Mild colonic diverticulosis. No pericolonic inflammatory changes. No evidence of bowel obstruction. ABDOMINAL WALL: Rectus diastases. No significant hernia. LYMPH NODES: No lymphadenopathy. VASCULAR: Normal caliber of the abdominal aorta. PELVIC VISCERA: Suspect postsurgical changes from prior . OSSEOUS STRUCTURES: Stable left greater than right sclerosis of the SI joints. CT/CT abdomen pelvis w IV con IMPRESSION: 1. Hepatomegaly and hepatic steatosis. 2. Nonspecific moderate gastric distention with heterogeneous debris that could be related with postprandial state or some degree of gastroparesis, correlate clinically. 3. Mild colonic diverticulosis without findings to suspect acute diverticulitis. 4. Rectus muscle diastases. 5. Unchanged left greater than right SI joint sclerosis that could indicate sacroiliitis.
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
[2023-10-08 20:07] VITALS: BP 155/80; PULSE 97; RESP 20; TEMP 37; O2SAT 100; BMI 48.0
[2023-10-08 20:20] LABS: MANUAL DIFF FLAG NO
[2023-10-08 20:25] LABS: Basophils Absolute Auto 0.1 X10*3/uL (0.0-0.2); Basophils Percent Auto 0.5 % (0-2); Eosinophils Absolute Auto 0.1 X10*3/uL (0.0-0.4); Eosinophils Percent Auto 1.1 % (0-4); Hematocrit 37.7 % (37.0-47.0); Hemoglobin 13.5 g/dl (12.0-16.0); Imm Gran Abs Auto 0.03 X10*3/uL (0.00-0.03); Imm Gran Pct Auto 0.3 % (0.0-0.4); Lymphocytes Absolute Auto 4.2 X10*3/uL (1.2-4.9); Lymphocytes Percent Auto 35.9 % (20-40); Mean Corpuscular HGB Conc 35.8 g/dl (31.0-35.0); Mean Corpuscular Hemoglobin 30.2 pg (27.0-33.0); Mean Corpuscular Volume 84.3 fL (80.0-98.0); Mean Platelet Volume 10.3 fL (9.4-12.3); Monocytes Absolute Auto 0.6 X10*3/uL (0.1-1.2); Neutrophils Absolute Auto 6.7 x10*3/uL (2.0-8.3); Neutrophils Percent Auto 57.2 % (45-73); Platelet Count 387 X10*3/uL (160-400); Red Blood Count 4.47 X10*6/uL (4.20-5.50); White Blood Count 11.7 X10*3/uL (4.8-10.8)
[2023-10-08 20:27] LABS: Appearance Urine Clear; Color Urine Yellow; Glucose Urine UA Negative (Negative); Leukocyte Esterase Urine Negative (Negative); Nitrite Urine Negative (Negative); PH 5.5 (5.0-9.0); Specific Gravity - Urine 1.025 (1.005-1.025); UMIC TRIGGER UACC YES; Urine Blood Negative (Negative); Urine Ketones Trace mg/dL (Negative); Urine Protein 30 (1+) mg/dL (Neg-Trace)
[2023-10-08 20:29] LABS: Bacteria Urine None Seen (None Seen); Hyaline Casts Urine 0-2 /LPF (0-2); RBC Urine 0-2 /HPF (0-2); Squamous Epithelial Cell Urine 0-2 /HPF (0-2); WBC Urine 0-5 /HPF (0-5)
[2023-10-08 20:35] LABS: Prothrombin Time 11.8 SEC (11.1-13.3)
[2023-10-08 20:45] LABS: Alanine Aminotransferase 29 U/L (0-31); Albumin Level 4.2 g/dL (3.5-5.0); Alkaline Phosphatase 76 U/L (39-117); Anion Gap 14 (12-20); Aspartate Amino Transferase 24 U/L (5-31); Bilirubin Total 0.2 mg/dL (0.0-1.0); Blood Urea Nitrogen 9 mg/dL (9-16); Calcium 10.2 mg/dL (8.4-10.2); Carbon Dioxide 25 mmol/L (22-29); Chloride 105 mmol/L (96-108); Creatinine Clr Calc Pharmacy 136.5; Estimated Glomerular Filt Rate > 60; Glucose Random 136 mg/dL (60-115); Potassium 3.6 mmol/L (3.3-5.1); Sodium 140 mmol/L (135-145); Total Protein 7.8 g/dL (6.5-8.0)
[2023-10-08 20:46] LABS: HCG Quantitative < 2 mIU/mL
[2023-10-08 21:10] LABS: Lipase 24 U/L (8-78)
[2023-10-08] MEDS: Lidocaine HCl Viscous 2 % 15 ML SOLUTION MUCOUS MEM (21:59)
[2023-10-08] MEDS: Magnesium Hydrox/Alum Hydrox 30 ML ORAL.SUSP PO (21:59)
[2023-10-08] MEDS: 0.9 % Sodium Chloride 1,000 ML 999 ML IV (22:01)
[2023-10-08] MEDS: iohexoL 350 MG/ML 100 ML INFUS..BTL 85 ML IV (23:10)
[2023-10-09 00:21] VITALS: BP 143/94; PULSE 77; RESP 18; TEMP 36.9; O2SAT 99
[2023-10-09 01:07] VITALS: BP 143/94; PULSE 77; RESP 18; TEMP 36.9; O2SAT 99
== END 2023-10-09 01:08 | disposition home or self-care (01) ==
PROVIDERS: Nurse Practitioner Family; Registered Nurse Emergency; Emergency Provider Internal Medicine; PCP Internal Medicine
DX: R10.11 Right upper quadrant pain (principal); R10.13 Epigastric pain; R11.2 Nausea with vomiting, unspecified; Z79.899 Other long term (current) drug therapy
CPT/HCPCS: 36415; 74177; 76705; 80053; 81001; 83690; 84702; 85025; 85610; 96360; 96361; 99284; Q9967

== ENCOUNTER 2023-10-15 08:47 | Outpatient (AMB) | payer OTHER, SELFPAY ==
[2023-10-15 08:49] VITALS: BP 120/74; PULSE 87; O2SAT 98; BMI 47.3
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
== END 2023-10-15 09:55 | disposition home or self-care (01) ==
PROVIDERS: PCP Internal Medicine; Visit Provider Internal Medicine
DX: R10.9 Unspecified abdominal pain (principal); R30.0 Dysuria; K76.0 Fatty (change of) liver, not elsewhere classified; Z32.02 Encounter for pregnancy test, result negative
CPT/HCPCS: 81003; 81025; 99213

== ENCOUNTER 2023-10-15 09:41 | Outpatient (REF) | payer OTHER, SELFPAY ==
[2023-10-15 13:12] LABS: Appearance Urine Turbid; Color Urine Dark Yellow; Glucose Urine UA Negative (Negative); Leukocyte Esterase Urine Negative (Negative); Nitrite Urine Negative (Negative); PH 5.5 (5.0-9.0); Specific Gravity - Urine >= 1.030 (1.005-1.025); UMIC TRIGGER UACC YES; Urine Blood Negative (Negative); Urine Ketones Trace mg/dL (Negative); Urine Protein 100 (2+) mg/dL (Neg-Trace)
[2023-10-15 13:22] LABS: Bacteria Urine None Seen (None Seen); Hyaline Casts Urine 0-2 /LPF (0-2); RBC Urine 0-2 /HPF (0-2); WBC Urine 0-5 /HPF (0-5)
== END 2023-10-15 09:42 | disposition home or self-care (01) ==
LOC: HO.LAB 09:41
PROVIDERS: Visit Provider Internal Medicine
DX: R30.0 Dysuria (principal)
CPT/HCPCS: 81001

== ENCOUNTER 2023-10-30 13:49 | Outpatient (REF) | payer OTHER, SELFPAY ==
[2023-10-31 12:28] LABS: Total Volume 24 Hour Urine 800 mL
[2023-10-31 12:37] LABS: Creatinine, 24Hr Urine 1.8 G/Day (1.0-2.0); Creatinine, mg/dL 228.91; Protein 24 Hr Urine 360 mg/Day (<150); Protein mg/dL 45 mg/dL
== END 2023-10-30 13:50 | disposition home or self-care (01) ==
LOC: HO.LNP 13:49
PROVIDERS: Visit Provider Internal Medicine
DX: R80.9 Proteinuria, unspecified (principal)
CPT/HCPCS: 84156

== ENCOUNTER 2023-11-15 11:02 | Outpatient (AMB) | payer OTHER, SELFPAY ==
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
[2023-11-15 11:06] VITALS: BP 122/90; PULSE 90; O2SAT 99; BMI 47.1
== END 2023-11-15 11:40 | disposition home or self-care (01) ==
PROVIDERS: PCP Internal Medicine; Referring Provider Internal Medicine; Visit Provider Internal Medicine Nephrology
DX: R80.8 Other proteinuria (principal)
CPT/HCPCS: 99205

== ENCOUNTER 2023-11-15 11:02 | Outpatient (REF) | payer OTHER, SELFPAY ==
[2023-11-15 12:20] LABS: MANUAL DIFF FLAG NO
[2023-11-15 12:35] LABS: Basophils Percent Auto 0.5 % (0-2); Eosinophils Absolute Auto 0.1 X10*3/uL (0.0-0.4); Eosinophils Percent Auto 1.2 % (0-4); Hematocrit 36.3 % (37.0-47.0); Hemoglobin 12.7 g/dl (12.0-16.0); Imm Gran Abs Auto 0.02 X10*3/uL (0.00-0.03); Imm Gran Pct Auto 0.2 % (0.0-0.4); Lymphocytes Absolute Auto 2.9 X10*3/uL (1.2-4.9); Lymphocytes Percent Auto 33.8 % (20-40); Mean Corpuscular Volume 85.8 fL (80.0-98.0); Mean Platelet Volume 10.4 fL (9.4-12.3); Monocytes Absolute Auto 0.6 X10*3/uL (0.1-1.2); Monocytes Percent Auto 6.8 % (2-11); Neutrophils Absolute Auto 4.9 x10*3/uL (2.0-8.3); Neutrophils Percent Auto 57.5 % (45-73); Platelet Count 359 X10*3/uL (160-400); Red Blood Count 4.23 X10*6/uL (4.20-5.50); Red Cell Distribution Width 12.8 % (11.0-16.0); White Blood Count 8.6 X10*3/uL (4.8-10.8)
[2023-11-15 12:52] LABS: Prothrombin Time 12.2 SEC (11.1-13.3)
[2023-11-15 13:11] LABS: Anion Gap 11 (12-20); Blood Urea Nitrogen 9 mg/dL (9-16); Calcium 9.3 mg/dL (8.4-10.2); Carbon Dioxide 25 mmol/L (22-29); Chloride 107 mmol/L (96-108); Estimated Glomerular Filt Rate > 60; Potassium 3.6 mmol/L (3.3-5.1); Sodium 139 mmol/L (135-145)
[2023-11-15 13:13] LABS: Creatinine Urine 190.93 mg/dL; Protein/Creatinine Ratio, Ur 0.16 (<0.2); Total Protein Urine Random 30 mg/dL (<12)
[2023-11-18 08:21] LABS: HBS Num1 2.65 mIU/mL (0-7.99); HBc Num1 0.29 S/CO (0.00-0.79); HBsAGNum1 0.46 S/CO (0.00-0.99); Hepatitis B Core Antibody Nonreactive (Nonreactive); Hepatitis B Surface Antigen Negative (Negative); ~Hepatitis B Surface Antibody NONREACTIVE (Nonreactive)
[2023-11-18 08:54] LABS: Complement C3 189 mg/dL (83-193)
[2023-11-18 15:28] LABS: Anti Nuclear Antibody Screen NEGATIVE (NEGATIVE)
[2023-11-19 06:23] LABS: Neutrophil Cyto Ab Screen NEGATIVE (NEGATIVE)
[2023-11-19 17:04] LABS: Anti DNA DS Antibody <1 IU/mL; Anti Glomerular Basement Memb <1.0 AI; Antibody to SS-A Antigen <1.0 NEG AI (<1.0 NEG); Antibody to SS-B Antigen <1.0 NEG AI (<1.0 NEG); JO 1 Antibody <1.0 NEG AI (<1.0 NEG); Myeloperoxidase Antibody <1.0 AI; Proteinase 3 PR3 Antibodies <1.0 AI; SM/Ribonucleoprotein Ab <1.0 NEG AI (<1.0 NEG); Scleroderma 70 Antibody <1.0 NEG AI (<1.0 NEG); Smith Protein <1.0 NEG AI (<1.0 NEG)
[2023-11-20 12:53] LABS: IgA 171 mg/dL (47-310); IgG 1380 mg/dL (600-1640); IgM 122 mg/dL (50-300)
[2023-11-27 01:14] LABS: Phospholipase A2 IgG ELISA <4 RU/mL; Phospholipase A2 IgG IFA NEGATIVE (NEGATIVE)
== END 2023-11-15 11:03 | disposition home or self-care (01) ==
LOC: HO.LAB 11:02
PROVIDERS: PCP Internal Medicine; Referring Provider Internal Medicine; Visit Provider Internal Medicine Nephrology
DX: R80.8 Other proteinuria (principal)
CPT/HCPCS: 36415; 80051; 82310; 82565; 82570; 82784; 83520; 84156; 84520; 85025; 85610; 86021; 86036; 86038; 86160; 86225; 86235; 86255; 86334; 86704; 86706; 87340; 99202

== ENCOUNTER 2024-01-03 09:53 | Outpatient (AMB) | payer OTHER, SELFPAY ==
[2024-01-03 09:55] VITALS: BP 110/82; PULSE 84; TEMP 36.8; O2SAT 98; BMI 46.9
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
== END 2024-01-03 10:32 | disposition home or self-care (01) ==
PROVIDERS: PCP Internal Medicine; Visit Provider Nurse Practitioner Family
DX: R07.9 Chest pain, unspecified (principal)

== ENCOUNTER → 2024-01-03 09:53 | Outpatient (BNVA) | payer OTHER, SELFPAY | PROVIDERS: PCP Internal Medicine | DX: R07.9 Chest pain, unspecified (principal) | CPT/HCPCS: 93005; 99212 ==

== ENCOUNTER 2024-01-13 15:49 | Outpatient (AMB) | payer OTHER, SELFPAY ==
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
[2024-01-13 16:17] VITALS: BP 110/80; PULSE 90; O2SAT 95; BMI 47.1
== END 2024-01-13 16:30 | disposition home or self-care (01) ==
PROVIDERS: PCP Internal Medicine; Visit Provider Internal Medicine Nephrology
DX: R80.8 Other proteinuria (principal)
CPT/HCPCS: 99214

== ENCOUNTER → 2024-01-13 15:49 | Outpatient (BNVA) | payer OTHER, SELFPAY | PROVIDERS: PCP Internal Medicine; Visit Provider Internal Medicine Nephrology | DX: R80.8 Other proteinuria (principal) | CPT/HCPCS: 99212 ==

== ENCOUNTER 2024-01-21 09:48 | Outpatient (AMB) | payer OTHER, SELFPAY ==
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
[2024-01-21 10:14] VITALS: BP 120/80; PULSE 70; O2SAT 98; BMI 48.0
== END 2024-01-21 10:56 | disposition home or self-care (01) ==
PROVIDERS: PCP Internal Medicine; Visit Provider Physician Assistant
DX: S93.491A Sprain of other ligament of right ankle, initial encounter (principal); M25.571 Pain in right ankle and joints of right foot; S83.421A Sprain of lateral collateral ligament of right knee, initial encounter; M25.561 Pain in right knee

== ENCOUNTER → 2024-01-21 09:48 | Outpatient (BNVA) | payer OTHER, SELFPAY | PROVIDERS: PCP Internal Medicine; Visit Provider Physician Assistant ==

== ENCOUNTER 2024-01-21 10:25 | Outpatient (REF) | payer OTHER, SELFPAY ==
--- NOTE | ~2024-01-21 | XR_ITS ---
EXAMINATION: XR KNEE, RIGHT. XR ANKLE, RIGHT. CLINICAL INFORMATION: Right knee pain and right ankle pain COMPARISON: None. TECHNIQUE: 4 views of the right knee. 3 views of the right ankle. FINDINGS: Right knee: No fracture or malalignment. No joint space narrowing. No joint effusion. Right ankle: No fracture. The ankle mortise is preserved. No significant degenerative findings. XR/XR ankle RT min 3V IMPRESSION: RIGHT KNEE: Normal. RIGHT ANKLE: Normal. Electronically signed by: Hector Delong MD 01/21/2024 11:57 AM EDT
--- NOTE | ~2024-01-21 | XR_ITS ---
EXAMINATION: XR KNEE, RIGHT. XR ANKLE, RIGHT. CLINICAL INFORMATION: Right knee pain and right ankle pain COMPARISON: None. TECHNIQUE: 4 views of the right knee. 3 views of the right ankle. FINDINGS: Right knee: No fracture or malalignment. No joint space narrowing. No joint effusion. Right ankle: No fracture. The ankle mortise is preserved. No significant degenerative findings. XR/XR knee RT 4V IMPRESSION: RIGHT KNEE: Normal. RIGHT ANKLE: Normal. Electronically signed by: Hector Delnog MD 01/21/2024 11:57 AM EDT
== END 2024-01-21 10:26 | disposition home or self-care (01) ==
LOC: HO.HMGCX 10:25
PROVIDERS: PCP Internal Medicine; Visit Provider Physician Assistant
DX: S93.491A Sprain of other ligament of right ankle, initial encounter (principal); S83.421A Sprain of lateral collateral ligament of right knee, initial encounter
CPT/HCPCS: 73564; 73610; 99212

== ENCOUNTER 2024-01-29 10:33 | Outpatient (AMB) | payer OTHER, SELFPAY ==
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
[2024-01-29 10:37] VITALS: BP 126/80; PULSE 82; O2SAT 98; BMI 47.5
== END 2024-01-29 11:36 | disposition home or self-care (01) ==
PROVIDERS: PCP Internal Medicine; Visit Provider Internal Medicine
DX: J45.909 Unspecified asthma, uncomplicated (principal); E66.813 Obesity, class 3; Z68.42 Body mass index [BMI] 45.0-49.9, adult; R80.8 Other proteinuria

== ENCOUNTER → 2024-01-29 10:33 | Outpatient (BNVA) | payer OTHER, SELFPAY | PROVIDERS: PCP Internal Medicine; Visit Provider Internal Medicine | DX: J45.909 Unspecified asthma, uncomplicated (principal); R80.8 Other proteinuria; E66.01 Morbid (severe) obesity due to excess calories; Z68.42 Body mass index [BMI] 45.0-49.9, adult | CPT/HCPCS: 96127; 99212 ==

== ENCOUNTER 2024-06-25 11:20 | Outpatient (AMB) | payer OTHER, SELFPAY ==
[2024-06-25 11:26] VITALS: BP 124/78; PULSE 91; RESP 20; TEMP 37.1; O2SAT 98; BMI 42.2
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
== END 2024-06-25 11:57 | disposition home or self-care (01) ==
LOC: HO.HMCC 11:21
PROVIDERS: PCP Internal Medicine; Visit Provider Internal Medicine
DX: Z00.00 Encounter for general adult medical examination without abnormal findings (principal); J45.909 Unspecified asthma, uncomplicated; E66.01 Morbid (severe) obesity due to excess calories; Z68.41 Body mass index [BMI] 40.0-44.9, adult; R80.8 Other proteinuria

== ENCOUNTER → 2024-06-25 11:20 | Outpatient (BNVA) | payer OTHER, SELFPAY | PROVIDERS: PCP Internal Medicine; Visit Provider Internal Medicine | DX: Z00.00 Encounter for general adult medical examination without abnormal findings (principal); J45.909 Unspecified asthma, uncomplicated; E66.01 Morbid (severe) obesity due to excess calories; R80.8 Other proteinuria | CPT/HCPCS: 96127; 99395 ==

== ENCOUNTER 2024-07-08 09:11 | Outpatient (REF) | payer OTHER, SELFPAY ==
[2024-07-08 09:26] LABS: MANUAL DIFF FLAG NO
[2024-07-08 10:46] LABS: Basophils Absolute Auto 0.1 X10*3/uL (0.0-0.2); Basophils Percent Auto 0.6 % (0-2); Eosinophils Absolute Auto 0.1 X10*3/uL (0.0-0.4); Hematocrit 36.9 % (37.0-47.0); Hemoglobin 12.6 g/dl (12.0-16.0); Imm Gran Abs Auto 0.04 X10*3/uL (0.00-0.03); Imm Gran Pct Auto 0.5 % (0.0-0.4); Mean Corpuscular HGB Conc 34.1 g/dl (31.0-35.0); Mean Corpuscular Volume 87.9 fL (80.0-98.0); Mean Platelet Volume 10.8 fL (9.4-12.3); Monocytes Absolute Auto 0.5 X10*3/uL (0.1-1.2); Monocytes Percent Auto 6.5 % (2-11); Neutrophils Absolute Auto 4.2 x10*3/uL (2.0-8.3); Neutrophils Percent Auto 53.4 % (45-73); Platelet Count 388 X10*3/uL (160-400); Red Cell Distribution Width 13.1 % (11.0-16.0); White Blood Count 7.9 X10*3/uL (4.8-10.8)
[2024-07-08 11:51] LABS: Alanine Aminotransferase 36 U/L (0-31); Albumin Level 4.1 g/dL (3.5-5.0); Alkaline Phosphatase 72 U/L (39-117); Anion Gap 8 (12-20); Aspartate Amino Transferase 28 U/L (5-31); Bilirubin Total 0.4 mg/dL (0.0-1.0); Blood Urea Nitrogen 12 mg/dL (9-16); Carbon Dioxide 26 mmol/L (22-29); Chloride 109 mmol/L (96-108); Cholesterol 149 mg/dL (<200); Estimated Glomerular Filt Rate > 60; Glucose Fasting 83 mg/dL (60-99); HDL Cholesterol 41 mg/dL (>40); LDL Cholesterol Calculated 94 mg/dL (<100); Potassium 3.9 mmol/L (3.3-5.1); Sodium 139 mmol/L (135-145); Total Protein 7.4 g/dL (6.5-8.0); Triglycerides 73 mg/dL (<150)
[2024-07-08 12:09] LABS: TSH reflex Free T4 0.57 uIU/mL (0.32-4.0)
== END 2024-07-08 09:12 | disposition home or self-care (01) ==
LOC: HO.LAB 09:11
PROVIDERS: PCP Internal Medicine; Visit Provider Internal Medicine
DX: Z00.00 Encounter for general adult medical examination without abnormal findings (principal); R80.8 Other proteinuria; E66.01 Morbid (severe) obesity due to excess calories
CPT/HCPCS: 36415; 80053; 80061; 84443; 85025; 99212

== ENCOUNTER 2024-07-08 10:21 | Outpatient (AMB) | payer OTHER, SELFPAY ==
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
[2024-07-08 10:26] VITALS: BP 114/80; BMI 41.5
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
== END 2024-07-08 10:41 | disposition home or self-care (01) ==
LOC: HO.HKA 10:22
PROVIDERS: PCP Internal Medicine; Visit Provider Internal Medicine Nephrology
DX: R80.8 Other proteinuria (principal)
CPT/HCPCS: 99214

== ENCOUNTER 2024-07-29 19:47 | Emergency (ER) | payer OTHER, SELFPAY ==
--- NOTE | ~2024-07-29 | XR_ITS ---
CLINICAL HISTORY: pain 3 view right hand Comparison: None Findings: Bones intact. No dislocations. No significant loss of joint space or osteophytes. No erosions. No radiopaque foreign body. Mildly diffuse soft tissue swelling. IMPRESSION: 1. No acute fracture This document has been electronically signed by: Aly Francisco MD on 07/29/2024 20:55:51
--- NOTE | ~2024-07-29 | XR_ITS ---
CLINICAL HISTORY: pain 4 view right wrist Comparison: None Findings: Bones intact. No dislocations. No significant loss of joint space, osteophyte, or erosions. No radiopaque foreign body. IMPRESSION: 1. No acute fracture This document has been electronically signed by: Aly Francisco MD on 07/29/2024 20:55:39
[2024-07-29 20:07] VITALS: BP 132/85; PULSE 106; RESP 18; TEMP 36.7; O2SAT 98; BMI 40.0
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
[2024-07-29 22:22] VITALS: BP 117/61; PULSE 99; RESP 16; TEMP 36.8; O2SAT 100
[2024-07-29 23:00] VITALS: BP 117/61; PULSE 99; RESP 16; TEMP 36.8; O2SAT 100
== END 2024-07-29 23:13 | disposition home or self-care (01) ==
PROVIDERS: Emergency Provider Emergency Medicine; PCP Internal Medicine
DX: S60.211A Contusion of right wrist, initial encounter (principal); W22.03XA Walked into furniture, initial encounter; Y93.79 Activity, other specified sports and athletics; Y92.038 Other place in apartment as the place of occurrence of the external cause; Y99.9 Unspecified external cause status
CPT/HCPCS: 73110; 73130; 99283; 99284

== ENCOUNTER → 2024-07-29 20:10 | Outpatient (BNV) | payer OTHER, SELFPAY | PROVIDERS: PCP Internal Medicine; Visit Provider Radiology Diagnostic Radiology | DX: M79.641 Pain in right hand (principal); M25.531 Pain in right wrist | CPT/HCPCS: 73110; 73130 ==

== ENCOUNTER 2024-09-08 10:33 | Outpatient (AMB) | payer OTHER, SELFPAY ==
--- OUTSIDE RECORDS SUMMARY | 2024-09-08 11:18 | XMS_ITS | Clinical Summary ---
Author Organization [employer] [facility] Address [address] [place] [address] Care Team Providers Care Production Machine Operator Name Role Phone Baljinder Oliva MD Primary Care Provider Unava ilable Surgical History Surgery Date Site/Laterality Comments TONSILLECTOMY PROCEDURE: HISTORICAL TONSILLECTOMY ADENOIDECTOMY PROCEDURE: HISTORICAL ADENOIDECTOMY Medical History Medical History Date Comments Asthma DX:Asthma Chronic hypertension 11/07/2019 DX:Chronic hypertension; COMMENT: No medications; baseline pre-e labs wnl; allergy to ASA Anxiety and depression 11/07/2019 DX:Anxiet y and depression; COMMENT: [facility] [place] notes from 06/29/2019: Stopped Paxil prior to , started counsleing EPDS 10; new FOB going through a divorce with ex Morbid obesity with body mas s index (BMI) of 40.0 to 44.9 in adult (CMS/HCC V24, CMS/HCC V28) 11/07/2019 DX:Morbid obesity with body mass index (BMI) of 40.0 to 44.9 in adult ([facility]) Family History Medical History Relation Name Comments [...] Vaccine (2023-2 5 season) 2023 Influenza Vaccine (Season Ended) 2024 HIB Vaccines Aged Out No longer eligi [...] age to complete this topic Meningococcal B Vaccine Aged Out No l onger eligible based on patient's age to complete [...] age to complete this topic Care Teams Production Machine Operator Relationship Specialty Start Date End Date Baljinder Oliva MD PCP - General Internal Medicine 12/27/18
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
[2024-09-08 11:27] VITALS: BP 120/76; PULSE 80; TEMP 36.6; O2SAT 98; BMI 39.6
== END 2024-09-08 12:27 | disposition home or self-care (01) ==
PROVIDERS: PCP Internal Medicine; Visit Provider Physician Assistant
DX: K02.9 Dental caries, unspecified (principal); K04.7 Periapical abscess without sinus; J01.00 Acute maxillary sinusitis, unspecified

== ENCOUNTER → 2024-09-08 10:33 | Outpatient (BNVA) | payer OTHER, SELFPAY | PROVIDERS: PCP Internal Medicine; Visit Provider Physician Assistant | DX: K02.9 Dental caries, unspecified (principal); K04.7 Periapical abscess without sinus; J01.00 Acute maxillary sinusitis, unspecified | CPT/HCPCS: 99212 ==

== ENCOUNTER 2024-09-14 09:32 | Outpatient (AMB) | payer OTHER, SELFPAY ==
--- OUTSIDE RECORDS SUMMARY | 2024-09-14 10:12 | XMS_ITS | Clinical Summary ---
Author Organization [employer] [facility] it Address [address] [place] [address] Care Team Providers Care Brokerage Coordinator Name Role Phone Baljinder Oliva MD Primary Care Provider Unava ilable Surgical History Surgery Date Site/Laterality Comments TONSILLECTOMY PROCEDURE: HISTORICAL TONSILLECTOMY ADENOIDECTOMY PROCEDURE: HISTORICAL ADENOIDECTOMY Medical History Medical History Date Comments Asthma DX:Asthma Chronic hypertension 11/07/2019 DX:Chronic hypertension; COMMENT: No medications; baseline pre-e labs wnl; allergy to ASA Anxiety and depression 11/07/2019 DX:Anxiet y and depression; COMMENT: [facility] [place]: Stopped Paxil prior to , started counsleing EPDS 10; new FOB going through a divorce with ex Morbid obesity with body mas s index (BMI) of 40.0 to 44.9 in adult (CMS/HCC V24, CMS/HCC V28) 11/07/2019 DX:Morbid obesity with body mass index (BMI) of 40.0 to 44.9 in adult ([facility]) Family History Medical History Relation Name [...] age to complete this topic Care Teams Brokerage Coordinator Relationship Specialty Start Date End Date Baljinder Oliva MD PCP - General Internal Medicine 12/27/18
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
[2024-09-14 10:52] VITALS: BP 118/76; PULSE 93; TEMP 36.8; O2SAT 99
== END 2024-09-14 12:17 | disposition home or self-care (01) ==
PROVIDERS: PCP Internal Medicine; Visit Provider Physician Assistant Medical
DX: J01.10 Acute frontal sinusitis, unspecified (principal); J01.00 Acute maxillary sinusitis, unspecified

== ENCOUNTER → 2024-09-14 09:32 | Outpatient (BNVA) | payer OTHER, SELFPAY | PROVIDERS: PCP Internal Medicine; Visit Provider Physician Assistant Medical | DX: J01.10 Acute frontal sinusitis, unspecified (principal); J01.00 Acute maxillary sinusitis, unspecified | CPT/HCPCS: 99212 ==

== ENCOUNTER 2024-09-18 08:04 | Emergency (ER) | payer OTHER, SELFPAY ==
--- NOTE | ~2024-09-18 | CT_ITS ---
EXAMINATION: CT SOFT TISSUE NECK WITH CONTRAST CLINICAL INFORMATION: Right-sided FACIAL swelling, recent dental procedure, 2 abx. COMPARISON: None available. TECHNIQUE: Following the intravenous administration of 100 mL of Omnipaque 350 intravenous contrast, helical imaging was performed in the axial plane with generation of coronal and sagittal reformatted images. This CT examination was performed using dose optimization techniques as appropriate, variously including the following: *Automated exposure control *Adjustment of mA and/or kV according to patient size (this includes techniques or standardized protocols for targeted exams where dose is matched to indication/reason for exam; i.e. extremities or head) *Use of iterative reconstruction technique FINDINGS: ALVEOLUS: There is an extraction cavity of the fourth maxillary tooth. There is no evidence of subperiosteal abscess or significant buccal soft tissue swelling, or significant hard palatal abnormality. There is opacification of the entire right maxillary sinus, with associated opacification of the right anterior ethmoid air cells extending into the right frontal sinus/frontal recess. Findings may indicate acute sinusitis in the appropriate clinical setting. There is no extension into the orbit or orbital abnormality identified. No preseptal or postseptal abnormalities. Lymph Nodes: -There are a few reactive appearing right greater than left anterior and posterior cervical chain lymph nodes, none enlarged by size criteria. The largest is a right jugulodigastric node measuring 11 mm short axis (within normal limits) Carotid Sheath Structures: -Normal. Salivary Glands: -Normal. Tongue Base/Floor of Mouth: -Normal Mucosal Space: -Mild prominence of the adenoidal soft tissues, presumably reactive. Minimal prominence of the palatine and lingual tonsillar tissue also likely reactive. -No focal mucosal space lesion. -Normal epiglottis and aryepiglottic folds. Visceral Space: -Thyroid gland: Globally enlarged without focal nodule.. -Larynx is normal. -Subglottic trachea is normal. -Superior esophagus is normal. Retropharangeal Space: -Normal. Parapharyngeal Fat Planes: -Normal. Thread Laster Spaces: -Normal. Anterior Cervical Space: -Normal. No inflammatory changes. Imaged Intracranial Contents: -No mass effect, edema, or abnormal enhancement. Cortical and dural venous sinuses are patent. The skull base is normal. Globes and Orbits: -Normal. As above. Paranasal Sinuses/Mastoids/Tympanic Spaces: -As above. -The left paranasal sinuses, bilateral mastoids, and tympanic spaces are normally aerated. Lung Apices and Superior Mediastinal Structures: -Imaged lung apices are clear and superior mediastinal structures are normal. Bony Structures: -No suspicious bone lesions. No fractures. -Normal TM joints. CT/CT soft tissue neck w IV con IMPRESSION: 1. Extraction cavity involving the right maxillary tooth #4. There is no evidence of inflammation in the buccal space or in the abutting soft/hard palate. There is no subperiosteal abscess present. 2. Complete opacification of the right maxillary sinus, right anterior ethmoid sinuses, and right frontal recess, in keeping with acute sinusitis in the appropriate clinical setting. This may be related to the extraction. 3. No pre or post septal abnormality in the orbits. 4. Mild reactive appearing lymphadenopathy in the right neck. 5. Global enlargement of the thyroid gland, without discrete nodule. Electronically signed by: Alexys Clark MD 09/18/2024 10:47 AM EDT
[2024-09-18 08:07] VITALS: BP 139/85; PULSE 96; RESP 16; TEMP 36.5; O2SAT 100; BMI 39.5
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
--- OUTSIDE RECORDS SUMMARY | 2024-09-18 09:26 | XMS_ITS | Clinical Summary ---
Author Organization [facility] it Address [address] [place] [address] Care Team Providers Care Automobile Lights Assembler Name Role Phone Baljinder Oliva MD Primary Care Provider Unava ilable Surgical History Surgery Date Site/Laterality Comments TONSILLECTOMY PROCEDURE: HISTORICAL TONSILLECTOMY ADENOIDECTOMY PROCEDURE: HISTORICAL ADENOIDECTOMY Medical History Medical History Date Comments Asthma DX:Asthma Chronic hypertension 11/07/2019 DX:Chronic hypertension; COMMENT: No medications; baseline pre-e labs wnl; allergy to ASA Anxiety and depression 11/07/2019 DX:Anxiet y and depression; COMMENT: [facility] notes from 06/29/2019: Stopped Paxil prior to , started counsleing EPDS 10; new FOB going through a divorce with ex Morbid obesity with body mas s index (BMI) of 40.0 to 44.9 in adult (CMS/HCC V24, CMS/HCC V28) 11/07/2019 DX:Morbid obesity with body mass index (BMI) of 40.0 to 44.9 in adult ([facility]) Family History Medical History Relation Name Comments [...] age to complete this topic Care Teams Automobile Lights Assembler Relationship Specialty Start Date End Date Baljinder Oliva MD PCP - General Internal Medicine 12/27/18
[2024-09-18 09:37] LABS: MANUAL DIFF FLAG NO
[2024-09-18 09:40] LABS: Basophils Absolute Auto 0.1 X10*3/uL (0.0-0.2); Basophils Percent Auto 0.7 % (0-2); Eosinophils Percent Auto 0.3 % (0-4); Hematocrit 33.9 % (37.0-47.0); Hemoglobin 11.7 g/dl (12.0-16.0); Imm Gran Abs Auto 0.03 X10*3/uL (0.00-0.03); Imm Gran Pct Auto 0.3 % (0.0-0.4); Lymphocytes Absolute Auto 3.1 X10*3/uL (1.2-4.9); Lymphocytes Percent Auto 33.7 % (20-40); Mean Corpuscular HGB Conc 34.5 g/dl (31.0-35.0); Mean Corpuscular Hemoglobin 29.7 pg (27.0-33.0); Mean Platelet Volume 9.6 fL (9.4-12.3); Monocytes Absolute Auto 0.7 X10*3/uL (0.1-1.2); Monocytes Percent Auto 7.5 % (2-11); Neutrophils Absolute Auto 5.2 x10*3/uL (2.0-8.3); Neutrophils Percent Auto 57.5 % (45-73); Platelet Count 431 X10*3/uL (160-400); Red Blood Count 3.94 X10*6/uL (4.20-5.50); Red Cell Distribution Width 12.6 % (11.0-16.0); White Blood Count 9.1 X10*3/uL (4.8-10.8)
[2024-09-18 09:55] LABS: Anion Gap 10 (12-20); Blood Urea Nitrogen 10 mg/dL (9-16); Calcium 9.6 mg/dL (8.4-10.2); Carbon Dioxide 27 mmol/L (22-29); Chloride 106 mmol/L (96-108); Estimated Glomerular Filt Rate > 60; Glucose Random 85 mg/dL (60-115); Potassium 3.8 mmol/L (3.3-5.1); Sodium 139 mmol/L (135-145)
[2024-09-18 10:06] LABS: HCG Quantitative < 2 mIU/mL
[2024-09-18 10:15] LABS: Influenza A PCR NEGATIVE (Negative); Influenza B PCR NEGATIVE (Negative); Resp Syncy Virus RNA Qual PCR NEGATIVE (Negative); SARS COV2 PCR INHOUSE NEGATIVE (Negative)
[2024-09-18] MEDS: iohexoL 350 MG/ML 100 ML INFUS..BTL IV (10:27)
[2024-09-18 10:44] VITALS: BP 124/74; PULSE 83; RESP 16; O2SAT 100
[2024-09-18 11:16] VITALS: BP 124/74; PULSE 83; RESP 16; TEMP 36.9; O2SAT 100
== END 2024-09-18 11:16 | disposition home or self-care (01) ==
PROVIDERS: Emergency Provider Emergency Medicine; PCP Internal Medicine
DX: J01.41 Acute recurrent pansinusitis (principal); R22.1 Localized swelling, mass and lump, neck; R50.9 Fever, unspecified; K08.89 Other specified disorders of teeth and supporting structures; Z79.899 Other long term (current) drug therapy; Z03.818 Encounter for observation for suspected exposure to other biological agents ruled out
CPT/HCPCS: 0241U; 36415; 70491; 80048; 84702; 85025; 99283; 99284; Q9967

== ENCOUNTER → 2024-09-18 09:09 | Outpatient (BNV) | payer OTHER, SELFPAY | PROVIDERS: Emergency Provider Emergency Medicine; PCP Internal Medicine; Visit Provider Radiology Diagnostic Radiology | DX: J01.20 Acute ethmoidal sinusitis, unspecified (principal) | CPT/HCPCS: 70491 ==

== ENCOUNTER 2024-09-22 08:43 | Outpatient (REF) | payer OTHER, SELFPAY ==
--- OUTSIDE RECORDS SUMMARY | 2024-09-22 09:04 | XMS_ITS | Clinical Summary ---
Author Organization [facility] it Address [address] [place] [address] Care Team Providers Care Intern Architect Name Role Phone Baljinder Oliva MD Primary Care Provider Unava ilable Surgical History Surgery Date Site/Laterality Comments TONSILLECTOMY PROCEDURE: HISTORICAL TONSILLECTOMY ADENOIDECTOMY PROCEDURE: HISTORICAL ADENOIDECTOMY Medical History Medical History Date Comments Asthma DX:Asthma Chronic hypertension 11/07/2019 DX:Chronic hypertension; COMMENT: No medications; baseline pre-e labs wnl; allergy to ASA Anxiety and depression 11/07/2019 DX:Anxiet y and depression; COM[place] [facility] [place]: Stopped Paxil prior to , started counsleing EPDS 10; new FOB going through a divorce with ex Morbid obesity with body mas s index (BMI) of 40.0 to 44.9 in adult (CMS/HCC V24, CMS/HCC V28) 11/07/2019 DX:Morbid obesity with body mass index (BMI) of 40.0 to 44.9 in adult ([facility]) Family History Medical History Relation Name Comments [...] age to complete this topic Care Teams Intern Architect Relationship Specialty Start Date End Date Baljinder Oliva MD PCP - General Internal Medicine 12/27/18
[2024-09-22 10:06] LABS: Appearance Urine Clear; Color Urine Yellow; Glucose Urine UA Negative (Negative); Leukocyte Esterase Urine Negative (Negative); Nitrite Urine Negative (Negative); PH 5.5 (5.0-9.0); Specific Gravity - Urine >= 1.030 (1.005-1.025); UMIC TRIGGER UACC YES; Urine Blood Negative (Negative); Urine Ketones Trace mg/dL (Negative); Urine Protein 30 (1+) mg/dL (Neg-Trace)
[2024-09-22 10:20] LABS: Bacteria Urine None Seen (None Seen); Hyaline Casts Urine 0-2 /LPF (0-2); RBC Urine 0-2 /HPF (0-2); WBC Urine 0-5 /HPF (0-5)
[2024-09-22 10:39] LABS: TSH reflex Free T4 1.66 uIU/mL (0.32-4.0)
[2024-09-22 11:19] LABS: UPreg QC Valid YES; Urine Pregnancy NEGATIVE (NEGATIVE)
[2024-09-22 11:21] LABS: Creatinine Urine 219.37 mg/dL; Protein/Creatinine Ratio, Ur 0.14 (<0.2); Total Protein Urine Random 30 mg/dL (<12)
[2024-09-23 18:09] LABS: Thyroid Peroxidase Antibodies 2 IU/mL (<9)
== END 2024-09-22 08:44 | disposition home or self-care (01) ==
LOC: HO.LAB 08:43
PROVIDERS: Absent Provider Internal Medicine Nephrology; PCP Internal Medicine; Visit Provider Internal Medicine
DX: E04.9 Nontoxic goiter, unspecified (principal); R30.0 Dysuria; R80.8 Other proteinuria
CPT/HCPCS: 36415; 81001; 81003; 81025; 82570; 84156; 84443; 86376

== ENCOUNTER 2024-10-01 11:33 | Outpatient (AMB) | payer OTHER, SELFPAY ==
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
[2024-10-01 11:58] VITALS: BP 122/80; PULSE 86; RESP 18; TEMP 36.7; O2SAT 99; BMI 39.1
--- OUTSIDE RECORDS SUMMARY | 2024-10-01 13:06 | XMS_ITS | Clinical Summary ---
Author Organization [facility] it Address [address] [place] [address] Care Team Providers Care Medical Physics Teacher Name Role Phone Baljinder Oliva MD Primary [...] of 40.0 to 44.9 in adult ([facility]) Family History Medical History Relation [...] age to complete this topic Care Teams Medical Physics Teacher Relationship Specialty Start Date End Date Baljinder Oliva MD PCP - General Internal Medicine 12/27/18
== END 2024-10-01 12:19 | disposition home or self-care (01) ==
LOC: HO.HMCC 11:34
PROVIDERS: PCP Internal Medicine; Visit Provider Internal Medicine
DX: E04.9 Nontoxic goiter, unspecified (principal); E66.01 Morbid (severe) obesity due to excess calories; Z68.39 Body mass index [BMI] 39.0-39.9, adult; J30.2 Other seasonal allergic rhinitis; J01.10 Acute frontal sinusitis, unspecified

== ENCOUNTER → 2024-10-01 11:33 | Outpatient (BNVA) | payer OTHER, SELFPAY | PROVIDERS: PCP Internal Medicine; Visit Provider Internal Medicine | DX: E66.01 Morbid (severe) obesity due to excess calories (principal); E04.9 Nontoxic goiter, unspecified; J30.2 Other seasonal allergic rhinitis; J01.10 Acute frontal sinusitis, unspecified; Z68.39 Body mass index [BMI] 39.0-39.9, adult | CPT/HCPCS: 99212 ==

== ENCOUNTER 2024-10-29 14:24 | Outpatient (REF) | payer OTHER, SELFPAY ==
--- NOTE | ~2024-10-29 | US_ITS ---
EXAMINATION: US THYROID HISTORY: E04.9 - Nontoxic goiter, unspecified TECHNIQUE: Real-time grayscale ultrasound imaging was performed and images were reviewed. COMPARISON: Correlation is made with a CT of the neck with contrast dated 09/18/2024. FINDINGS: SIZE: The right thyroid lobe measures 5.7 x 2.2 x 2.3 cm. The left thyroid lobe measures 5.4 x 1.8 x 1.9 cm. The isthmus measures 7 mm. FLOW: Flow to the gland is normal. ECHOGENICITY: The echotexture of the gland is homogeneous. NODULES: There are spongiform nodules in both thyroid lobes measuring up to 4 mm on the right and 6 mm on the left. No suspicious nodules are identified. US/US thyroid IMPRESSION: Mild thyromegaly. No suspicious nodules are identified. ACR TI-RADS Guidelines TR1 (0 points): Benign, No follow-up or biopsy required TR2 (2 points): Not Suspicious, No biopsy or follow up indicated TR3 (3 points): Mildly Suspicious, FNA if >= 2.5 cm, Follow if >= 1.5 cm TR4 (4-6 points): Moderately Suspicious, FNA if >= 1.5 cm, Follow if >= 1.0 cm TR5 (>=7 points): Highly Suspicious, FNA if >= 1.0 cm, Follow if >= 0.5 cm Electronically signed by: Gunnar Chase MD 10/29/2024 03:22 PM EDT
--- OUTSIDE RECORDS SUMMARY | 2024-10-29 15:14 | XMS_ITS | Clinical Summary ---
Author Organization [facility] [employer] [facility] it Address [address] [place] [address] Care Team Providers Care Inspector Handbag Frames Name Role Phone Baljinder Oliva MD Primary Care Provider Unava ilable Surgical History Surgery Date Site/Laterality Comments TONSILLECTOMY PROCEDURE: HISTORICAL TONSILLECTOMY ADENOIDECTOMY PROCEDURE: HISTORICAL ADENOIDECTOMY Medical History Medical History Date Comments Asthma DX:Asthma Chronic hypertension 11/07/2019 DX:Chronic hypertension; COMMENT: No medications; baseline pre-e labs wnl; allergy to ASA Anxiety and depression 11/07/2019 DX:Anxiet y and depression; COMMENT: [facility] [place] notes from 06/29/2019: Stopped Paxil prior to , started counsleing EPDS 10; new FOB going through a divorce with ex Morbid obesity with body mas s index (BMI) of 40.0 to 44.9 in adult (CMS/HCC V24, CMS/HCC V28) 11/07/2019 DX:Morbid obesity with body mass index (BMI) of 40.0 to 44.9 in adult ([facility]) Family History Medical History Relation Name Comments [...] Screening: P ap Smear 2014 COVID-19 Vaccine (1 - 2023-2 5 season) 2023 Influenza Vaccine (#1) 2024 HIB Vaccines Aged Out No longer [...] 5 Years) and At-Risk Patients (6 to 49 Years) Aged Out No longer eligible b ased on patient's age to complete this topic RSV Immunization Patients Un jenna 20 months Aged Out No longer eligible b ased on patient's age to complete this topic Varicella Vaccines Aged Out No longer eligible based on patient's age to complete this topic Care Teams Inspector Handbag Frames Relationship Specialty Start Date End Date Baljinder Oliva MD PCP - General Internal Medicine 12/27/18
== END 2024-10-29 14:25 | disposition home or self-care (01) ==
LOC: HO.HMGCX 14:24
PROVIDERS: PCP Internal Medicine; Visit Provider Internal Medicine
DX: E04.9 Nontoxic goiter, unspecified (principal)
CPT/HCPCS: 76536

== ENCOUNTER → 2024-10-29 14:29 | Outpatient (BNV) | payer OTHER, SELFPAY | PROVIDERS: PCP Internal Medicine; Visit Provider Radiology Diagnostic Radiology | DX: E04.9 Nontoxic goiter, unspecified (principal) | CPT/HCPCS: 76536 ==

== ENCOUNTER 2024-12-27 23:52 | Emergency (ER) | payer OTHER, SELFPAY ==
[2024-12-28 00:14] VITALS: BP 123/60; PULSE 92; RESP 18; TEMP 36.7; O2SAT 100; BMI 35.3
[2024-12-28 00:36] LABS: MANUAL DIFF FLAG NO
[2024-12-28 00:38] LABS: Appearance Urine Clear; Glucose Urine UA Negative (Negative); Hematocrit 34.8 % (37.0-47.0); Hemoglobin 12.1 g/dl (12.0-16.0); Imm Gran Abs Auto 0.02 X10*3/uL (0.00-0.03); Imm Gran Pct Auto 0.2 % (0.0-0.4); Lymphocytes Absolute Auto 4.6 X10*3/uL (1.2-4.9); Mean Corpuscular HGB Conc 34.8 g/dl (31.0-35.0); Mean Corpuscular Hemoglobin 30.3 pg (27.0-33.0); Mean Corpuscular Volume 87.0 fL (80.0-98.0); NRBC Abs Auto 0.000 X10*3/uL (0.0-0.012); NRBC Pct Auto 0.0 /100WBC (0.0-0.2); PH 6.5 (5.0-9.0); Platelet Count 340 X10*3/uL (160-400); Red Blood Count 4.00 X10*6/uL (4.20-5.50); Specific Gravity - Urine 1.015 (1.005-1.025); UMIC TRIGGER UACC YES; White Blood Count 10.5 X10*3/uL (4.8-10.8)
[2024-12-28 00:39] LABS: UPreg QC Valid YES
[2024-12-28 00:47] LABS: UACC Culture Trigger YES
[2024-12-28 01:12] LABS: Alanine Aminotransferase 15 U/L (0-31); Albumin Level 4.1 g/dL (3.5-5.0); Alkaline Phosphatase 54 U/L (39-117); Anion Gap 11 (12-20); Aspartate Amino Transferase 18 U/L (5-31); Blood Urea Nitrogen 13 mg/dL (9-16); Calcium 8.9 mg/dL (8.4-10.2); Carbon Dioxide 24 mmol/L (22-29); Chloride 107 mmol/L (96-108); Creatinine Clr Calc Pharmacy 123.9; Estimated Glomerular Filt Rate > 60; Potassium 3.7 mmol/L (3.3-5.1); Sodium 138 mmol/L (135-145); Total Protein 7.0 g/dL (6.5-8.0)
--- OUTSIDE RECORDS SUMMARY | 2024-12-28 01:44 | XMS_ITS | Clinical Summary ---
Author Organization [facility]mie [employer] [facility] Address [address] [place] [address] Care Team Providers Care Pigskin Trimmer Name Role Phone Baljinder Oliva MD Primary Care Provider Unava ilable Surgical History Surgery Date Site/Laterality Comments TONSILLECTOMY PROCEDURE: HISTORICAL TONSILLECTOMY ADENOIDECTOMY PROCEDURE: HISTORICAL ADENOIDECTOMY Medical History Medical History Date Comments Asthma DX:Asthma Chronic hypertension 11/07/2019 DX:Chronic hypertension; COMMENT: No medications; baseline pre-e labs wnl; allergy to ASA Anxiety and depression 11/07/2019 DX:Anxiet y and depression; COMMENT: [facility] [place] [place] notes from 06/29/2019: Stopped Paxil prior to [...] Cervical Cancer Screening: P ap Smear 2014 Depression Screening 04/15/2024 COVID-19 Vaccine (1 - 2023-2 5 season) 2024 Influenza Vaccine (#1) 2024 HIB Vaccines Aged [...] age to complete this topic Care Teams Pigskin Trimmer Relationship Specialty Start Date End Date Baljinder Oliva MD PCP - General Internal Medicine 12/27/18
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
[2024-12-28 02:48] VITALS: BP 129/58; PULSE 80; RESP 14; TEMP 36.3; O2SAT 100
[2024-12-28 02:56] VITALS: BP 129/58; PULSE 80; RESP 14; TEMP 36.3; O2SAT 100
== END 2024-12-28 02:56 | disposition home or self-care (01) ==
PROVIDERS: Emergency Provider Emergency Medicine; PCP Internal Medicine
DX: N39.0 Urinary tract infection, site not specified (principal); Z87.440 Personal history of urinary (tract) infections
CPT/HCPCS: 36415; 80053; 81001; 81025; 85025; 87086; 99283; 99284

== ENCOUNTER 2025-01-14 09:28 | Outpatient (REF) | payer OTHER, SELFPAY ==
--- OUTSIDE RECORDS SUMMARY | 2025-01-14 10:25 | XMS_ITS | Clinical Summary ---
Author Organization [facility] [employer] [facility] Address [address] [place] [address] Care Team Providers Care Follow Up Rep Name Role Phone Baljinder Oliva MD Primary Care Provider Unava ilable Surgical History Surgery Date Site/Laterality Comments TONSILLECTOMY PROCEDURE: HISTORICAL TONSILLECTOMY ADENOIDECTOMY PROCEDURE: HISTORICAL ADENOIDECTOMY Medical History Medical History Date Comments Asthma DX:Asthma Chronic hypertension 11/07/2019 DX:Chronic hypertension; COMMENT: No medications; baseline pre-e labs wnl; allergy to ASA Anxiety and depression 11/07/2019 DX:Anxiet y and depression; COMMENT: [facility] [place] notes from 06/29/2019: Stopped Paxil prior to , started counsleing EPDS 10; new FOB going through a divorce with ex Morbid obesity with body mas s index (BMI) of 40.0 to 44.9 in adult (CMS/HCC V24, CMS/HCC V28) 11/07/2019 DX:Morbid obesity with body mass index (BMI) of 40.0 to 44.9 in adult ([facility]) Family History Medical History Relation [...] Cervical Cancer Screening: P ap Smear 2014 HPV Vaccines (1 - 3-dose SCD M series) 2020 Depression Screening 04/15/2024 COVID-19 Vaccine (1 - 2023-2 5 season) 2024 Influenza Vaccine (#1) 2024 RSV Immunization Adult Patie nts (1 - 1-dose 75+ series) 2068 HIB Vaccines Aged Out No longer eligi [...] age to complete this topic Care Teams Follow Up Rep Relationship Specialty Start Date End Date Baljinder Oliva MD PCP - General Internal Medicine 12/27/18
[2025-01-14 11:04] LABS: Anion Gap 10 (12-20); Blood Urea Nitrogen 12 mg/dL (9-16); Carbon Dioxide 26 mmol/L (22-29); Chloride 106 mmol/L (96-108); Estimated Glomerular Filt Rate > 60; Potassium 3.8 mmol/L (3.3-5.1); Sodium 138 mmol/L (135-145)
== END 2025-01-14 09:29 | disposition home or self-care (01) ==
LOC: HO.LAB 09:28
PROVIDERS: PCP Internal Medicine; Visit Provider Internal Medicine Nephrology
DX: R80.8 Other proteinuria (principal)
CPT/HCPCS: 36415; 80051; 82565; 84520

== ENCOUNTER 2025-01-15 10:23 | Outpatient (AMB) | payer OTHER, SELFPAY ==
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
[2025-01-15 10:37] VITALS: BP 112/80; BMI 35.6
--- OUTSIDE RECORDS SUMMARY | 2025-01-15 11:15 | XMS_ITS | Clinical Summary ---
Author Organization [facility] [employer] [facility] Address [address] [place] [address] Care Team Providers Care Hospice Registered Nurse Name Role Phone Baljinder Oliva MD Primary Care Provider Unava ilable Surgical History Surgery Date Site/Laterality Comments TONSILLECTOMY PROCEDURE: HISTORICAL TONSILLECTOMY ADENOIDECTOMY PROCEDURE: HISTORICAL ADENOIDECTOMY Medical History Medical History Date Comments Asthma DX:Asthma Chronic hypertension 11/07/2019 DX:Chronic hypertension; COMMENT: No medications; baseline pre-e labs wnl; allergy to ASA Anxiety and depression 11/07/2019 DX:Anxiet y and depression; COMMENT: [facility] [place] notes from 06/29/2019: Stopped Paxil prior to , started counsleing EPDS 10; new FOB going through a divorce with ex Morbid obesity with body mas s index (BMI) of 40.0 to 44.9 in adult (CMS/HCC V24, CMS/HCC V28) 11/07/2019 DX:Morbid obesity with body mass index (BMI) of 40.0 to 44.9 in adult ([facility]) Family History Medical History Relation Name [...] age to complete this topic Care Teams Hospice Registered Nurse Relationship Specialty Start Date End Date Baljinder Oliva MD PCP - General Internal Medicine 12/27/18
== END 2025-01-15 10:58 | disposition home or self-care (01) ==
LOC: HO.HKA 10:24
PROVIDERS: PCP Internal Medicine; Visit Provider Internal Medicine Nephrology
DX: R80.8 Other proteinuria (principal); N30.00 Acute cystitis without hematuria
CPT/HCPCS: 99214

== ENCOUNTER 2025-01-15 10:23 | Outpatient (REF) | payer OTHER, SELFPAY ==
--- OUTSIDE RECORDS SUMMARY | 2025-01-16 10:47 | XMS_ITS | Clinical Summary ---
Author Organization [facility] Address [address] [place] [address] Care Team Providers Care Block Greaser Name Role Phone Baljinder Oliva MD Primary Care Provider Unava ilable Surgical History Surgery Date Site/Laterality Comments TONSILLECTOMY PROCEDURE: HISTORICAL TONSILLECTOMY ADENOIDECTOMY PROCEDURE: HISTORICAL ADENOIDECTOMY Medical History Medical History Date Comments Asthma DX:Asthma Chronic hypertension 11/07/2019 DX:Chronic hypertension; COMMENT: No medications; baseline pre-e labs wnl; allergy to ASA Anxiety and depression 11/07/2019 DX:Anxiet y and depression; COMMENT: [facility] [place] notes from 06/29/2019: Stopped Paxil prior to , started counsleing EPDS 10; new FOB going through a divorce with ex Morbid obesity with body mas s index (BMI) of 40.0 to 44.9 in adult (CMS/HCC V24, CMS/HCC V28) 11/07/2019 DX:Morbid obesity with body mass index (BMI) of 40.0 to 44.9 in adult ([facility]) Family History Medical History Relation Name Comments [...] age to complete this topic Care Teams Block Greaser Relationship Specialty Start Date End Date Baljinder Oliva MD PCP - General Internal Medicine 12/27/18
[2025-01-16 12:07] LABS: Bacterial Vaginosis PCR NEGATIVE (Negative); Candida Group PCR NOT DETECTED (Not Detect); Candida glab krusei PCR NOT DETECTED (Not Detect); Trichomonas vaginalis PCR NOT DETECTED (Not Detect)
== END 2025-01-15 10:24 | disposition home or self-care (01) ==
LOC: HO.LNP 10:23
PROVIDERS: Nurse Practitioner Family; PCP Internal Medicine; Visit Provider Internal Medicine Nephrology
DX: B37.31 Acute candidiasis of vulva and vagina (principal); N98.8 Other complications associated with artificial fertilization
CPT/HCPCS: 81515; 99212

== ENCOUNTER 2025-01-15 13:29 | Outpatient (AMB) | payer OTHER, SELFPAY ==
[2025-01-15 13:42] VITALS: BP 110/70; PULSE 78; RESP 16; BMI 35.9
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
== END 2025-01-15 14:15 | disposition home or self-care (01) ==
PROVIDERS: PCP Internal Medicine; Visit Provider Nurse Practitioner Family
DX: B37.31 Acute candidiasis of vulva and vagina (principal)

== ENCOUNTER 2025-02-03 10:55 | Outpatient (AMB) | payer OTHER, SELFPAY ==
[2025-02-03 11:03] VITALS: BP 112/76; PULSE 91; RESP 17; TEMP 36.9; O2SAT 98; BMI 34.8
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
--- OUTSIDE RECORDS SUMMARY | 2025-02-03 14:32 | XMS_ITS | Clinical Summary ---
Author Organization [facility] Address [address] [place] [address] Care Team Providers Care Business Continuity Management Director Name Role Phone Baljinder Oliva MD Primary Care Provider Unava ilable Surgical History Surgery Date Site/Laterality Comments TONSILLECTOMY PROCEDURE: HISTORICAL TONSILLECTOMY ADENOIDECTOMY PROCEDURE: HISTORICAL ADENOIDECTOMY Medical History Medical History Date Comments Asthma DX:Asthma Chronic hypertension 11/07/2019 DX:Chronic hypertension; COMMENT: No medications; baseline pre-e labs wnl; allergy to ASA Anxiety and depression 11/07/2019 DX:Anxiet y and depression; [place] [facility] [place]: Stopped Paxil prior to , started counsleing EPDS 10; new FOB going through a divorce with ex Morbid obesity with body mas s index (BMI) of 40.0 to 44.9 in adult (CMS/HCC V24, CMS/HCC V28) 11/07/2019 DX:Morbid obesity with body mass index (BMI) of 40.0 to 44.9 in adult ([facility]) Family History Medical History Relation Name [...] age to complete this topic Care Teams Business Continuity Management Director Relationship Specialty Start Date End Date Baljinder Oliva MD PCP - General Internal Medicine 12/27/18
== END 2025-02-03 12:27 | disposition home or self-care (01) ==
LOC: HO.HMCC 10:56
PROVIDERS: PCP Internal Medicine; Visit Provider Internal Medicine
DX: J45.909 Unspecified asthma, uncomplicated (principal); E66.01 Morbid (severe) obesity due to excess calories; R80.8 Other proteinuria; Z68.34 Body mass index [BMI] 34.0-34.9, adult

== ENCOUNTER → 2025-02-03 10:55 | Outpatient (BNVA) | payer OTHER, SELFPAY | PROVIDERS: PCP Internal Medicine; Visit Provider Internal Medicine | DX: E66.01 Morbid (severe) obesity due to excess calories (principal); J45.909 Unspecified asthma, uncomplicated; R80.8 Other proteinuria; Z79.899 Other long term (current) drug therapy; Z68.34 Body mass index [BMI] 34.0-34.9, adult | CPT/HCPCS: 99212 ==

== ENCOUNTER 2025-02-23 15:16 | Outpatient (REF) | payer OTHER, SELFPAY ==
--- NOTE | ~2025-02-23 | US_ITS ---
EXAMINATION: US RETROPERITONEAL LIMITED (RENAL ONLY) CLINICAL INFORMATION: R80.8. COMPARISON: Correlated to CT dated October 08, 2023. TECHNIQUE: Real-time ultrasound kidneys using grayscale technique. FINDINGS: RIGHT KIDNEY: 12 x 7 x 6 cm (SAG x AP x TRV). Normal echotexture. Renal cortical thickness is normal. No hydronephrosis. No solid or cystic lesion. LEFT KIDNEY: 12 x 6 x 5 cm (SAG x AP x TRV). Normal echotexture. No hydronephrosis. No solid or cystic lesion. US/US renal BI IMPRESSION: No hydronephrosis or gross nephrolithiasis. Small cystic lesion in the upper pole left kidney identified on prior CT is not documented.. Electronically signed by: Ziggy Gutiérrez MD 02/23/2025 03:46 PM EST
--- OUTSIDE RECORDS SUMMARY | 2025-02-23 16:58 | XMS_ITS | Clinical Summary ---
Author Organization [facility] [employer] [facility] Address [address] [place] [address] Care Team Providers Care Wind Up Worker Name Role Phone Baljinder Oliva MD Primary Care Provider Unava ilable Surgical History Surgery Date Site/Laterality Comments TONSILLECTOMY PROCEDURE: HISTORICAL TONSILLECTOMY ADENOIDECTOMY PROCEDURE: HISTORICAL ADENOIDECTOMY Medical History Medical History Date Comments Asthma DX:Asthma Chronic hypertension 11/07/2019 DX:Chronic hypertension; COMMENT: No medications; baseline pre-e labs wnl; allergy to ASA Anxiety and depression 11/07/2019 DX:Anxiet y and depression; COMMENT: [facility] [place] notes from 06/29/2019: Stopped Paxil prior to , started counsleing EPDS 10; new FOB going through a divorce with ex Morbid obesity with body mas s index (BMI) of 40.0 to 44.9 in adult (CMS/HCC V24, CMS/HCC V28) 11/07/2019 DX:Morbid obesity with body mass index (BMI) of 40.0 to 44.9 in adult ([facility]) Family History Medical History Relation Name Comments [...] age to complete this topic Care Teams Wind Up Worker Relationship Specialty Start Date End Date Baljinder Oliva MD PCP - General Internal Medicine 12/27/18
== END 2025-02-23 15:17 | disposition home or self-care (01) ==
LOC: HO.US 15:16
PROVIDERS: PCP Internal Medicine; Visit Provider Internal Medicine Nephrology
DX: R80.8 Other proteinuria (principal); N30.00 Acute cystitis without hematuria; R10.A0 Flank pain, unspecified side
CPT/HCPCS: 76775

== ENCOUNTER → 2025-02-23 15:18 | Outpatient (BNV) | payer OTHER, SELFPAY | PROVIDERS: PCP Internal Medicine; Visit Provider Radiology Diagnostic Radiology | DX: N28.1 Cyst of kidney, acquired (principal) | CPT/HCPCS: 76775 ==

== ENCOUNTER 2025-03-02 10:00 | Outpatient (AMB) | payer OTHER, SELFPAY ==
[2025-03-02 10:07] VITALS: BP 122/74; BMI 33.2
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
== END 2025-03-02 10:54 | disposition home or self-care (01) ==
LOC: HO.HWS 10:01
PROVIDERS: PCP Internal Medicine; Visit Provider Obstetrics & Gynecology
DX: Z01.419 Encounter for gynecological examination (general) (routine) without abnormal findings (principal); R10.20 Pelvic and perineal pain unspecified side; R31.29 Other microscopic hematuria
CPT/HCPCS: 99213; 99395; 99459

== ENCOUNTER 2025-03-02 10:00 | Outpatient (REF) | payer OTHER, SELFPAY ==
[2025-03-02 17:22] LABS: CT PCR NOT DETECTED (Not Detect.); NG PCR NOT DETECTED (Not Detect.)
== END 2025-03-02 10:01 | disposition home or self-care (01) ==
LOC: HO.LNP 10:00
PROVIDERS: PCP Internal Medicine; Visit Provider Obstetrics & Gynecology
DX: Z01.419 Encounter for gynecological examination (general) (routine) without abnormal findings (principal); Z20.2 Contact with and (suspected) exposure to infections with a predominantly sexual mode of transmission; R31.29 Other microscopic hematuria; R10.20 Pelvic and perineal pain unspecified side
CPT/HCPCS: 81002; 87086; 87491; 87591; 87626; 88175; 99212; 99395

== ENCOUNTER 2025-03-04 02:10 | Emergency (ER) | payer OTHER, SELFPAY ==
[2025-03-04 02:16] VITALS: BP 136/82; PULSE 79; RESP 20; TEMP 36.2; O2SAT 99; BMI 33.2
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
[2025-03-04 03:07] LABS: Appearance Urine Clear; Glucose Urine UA Negative (Negative); PH 6.0 (5.0-9.0); Specific Gravity - Urine >= 1.030 (1.005-1.025); UMIC TRIGGER UACC YES
[2025-03-04 03:09] LABS: UPreg QC Valid YES
[2025-03-04 03:47] VITALS: BP 112/73; PULSE 86; RESP 16; TEMP 36.8; O2SAT 99
== END 2025-03-04 03:57 | disposition home or self-care (01) ==
PROVIDERS: Emergency Provider Emergency Medicine; PCP Internal Medicine
DX: M79.18 Myalgia, other site (principal); M54.9 Dorsalgia, unspecified
CPT/HCPCS: 81001; 81025; 96372; 99284; J1885

== ENCOUNTER 2025-04-06 09:37 | Outpatient (AMB) | payer OTHER, SELFPAY ==
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
[2025-04-06 09:47] VITALS: BP 122/86; PULSE 72; RESP 16; O2SAT 98
--- OUTSIDE RECORDS SUMMARY | 2025-04-06 10:28 | XMS_ITS | Clinical Summary ---
Author Organization [employer] [facility] it Address [address] [place] [address] Care Team Providers Care Software Test Automation Engineer Name Role Phone Baljinder Oliva MD Primary Care Provider [phone] Surgical History Surgery Date Site/Laterality Comments TONSILLECTOMY PROCEDURE: HISTORICAL TONSILLECTOMY ADENOIDECTOMY PROCEDURE: HISTORICAL ADENOIDECTOMY Medical History Medical History Date Comments Asthma DX:Asthma Chronic hypertension 11/07/2019 DX:Chronic hypertension; COMMENT: No medications; baseline pre-e labs wnl; allergy to ASA Anxiety and depression 11/07/2019 DX:Anxiet y and depression; COMMENT: [facility] notes from 06/29/2019: Stopped Paxil prior to , started counsleing EPDS 10; new FOB going through a divorce with ex Morbid obesity with body mas s index (BMI) of 40.0 to 44.9 in adult (CMS/HCC V24, CMS/HCC V28) 11/07/2019 DX:Morbid obesity with body mass index (BMI) of 40.0 to 44.9 in adult ([facility]) Family History Medical History Relation [...] on file Sexual Orientation Not on file Plan of Treatment Health Maintenance Due Date Last Done Comments DTaP,Tdap,and Td Vaccines (1 - Tdap) 2012 Hepatitis B Vaccines (1 of 3 - 19+ 3-dose series) 2012 Cervical Cancer Screening: P ap Smear 2014 HPV Vaccines (1 - 3-dose SCD M series) 2020 Depression Screening 04/15/2024 COVID-19 Vaccine (1 - 2024-2 6 season) 2024 Influenza Vaccine (#1) 2024 RSV [...] age to complete this topic Care Teams Software Test Automation Engineer Relationship Specialty Start Date End Date Baljinder Oliva MD PCP - General Internal Medicine 12/27/18
== END 2025-04-06 10:44 | disposition home or self-care (01) ==
LOC: HO.HMCC 09:38
PROVIDERS: PCP Internal Medicine; Visit Provider Internal Medicine
DX: M54.2 Cervicalgia (principal); F41.9 Anxiety disorder, unspecified; J45.909 Unspecified asthma, uncomplicated

== ENCOUNTER → 2025-04-06 09:37 | Outpatient (BNVA) | payer OTHER, SELFPAY | PROVIDERS: PCP Internal Medicine; Visit Provider Internal Medicine | DX: M54.2 Cervicalgia (principal); F41.9 Anxiety disorder, unspecified; J45.909 Unspecified asthma, uncomplicated; Z13.31 Encounter for screening for depression; Z13.39 Encounter for screening examination for other mental health and behavioral disorders; Z09 Encounter for follow-up examination after completed treatment for conditions other than malignant neoplasm | CPT/HCPCS: 96127; 99212 ==

== ENCOUNTER 2025-04-06 20:00 | Emergency (ER) | payer OTHER, SELFPAY ==
[2025-04-06 20:04] VITALS: BP 132/88; PULSE 101; O2SAT 99
[2025-04-06 20:09] VITALS: BP 136/84; PULSE 107; RESP 20; TEMP 37.1; O2SAT 96; BMI 32.8
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
--- NOTE | 2025-04-06 20:22 | MHC.EDTECH ---
pt assisted with ambulation to and from bathroom, pt shaky however steady on feet. redness, no hives, noted to chest, no other skin abnormalities, RN made aware
--- NOTE | 2025-04-06 20:25 | PC.NURSE ---
Pt medicated per mar Pts at bedside Plan of care ongoing.
--- OUTSIDE RECORDS SUMMARY | 2025-04-06 20:29 | XMS_ITS | Clinical Summary ---
Author Organization [facility] [employer] [facility] it Address [address] [place] [address] Care Team Providers Care Commercial Reporter Name Role Phone Baljinder Oliva MD Primary Care Provider [phone] Surgical History Surgery Date Site/Laterality Comments TONSILLECTOMY PROCEDURE: HISTORICAL TONSILLECTOMY ADENOIDECTOMY PROCEDURE: HISTORICAL ADENOIDECTOMY Medical History Medical History Date Comments Asthma DX:Asthma Chronic hypertension 11/07/2019 DX:Chronic hypertension; COMMENT: No medications; baseline pre-e labs wnl; allergy to ASA Anxiety and depression 11/07/2019 DX:Anxiet y and depression; COMMENT[place] [facility] [place]: Stopped Paxil prior to , started counsleing EPDS 10; new FOB going through a divorce with ex Morbid obesity with body mas s index (BMI) of 40.0 to 44.9 in adult (CMS/HCC V24, CMS/HCC V28) 11/07/2019 DX:Morbid obesity with body mass index (BMI) of 40.0 to 44.9 in adult ([facility]) Family History Medical History Relation Name [...] age to complete this topic Care Teams Commercial Reporter Relationship Specialty Start Date End Date Baljinder Oliva MD PCP - General Internal Medicine 12/27/18
[2025-04-06 21:45] VITALS: BP 136/84; PULSE 107; RESP 20; TEMP 37.1; O2SAT 96
== END 2025-04-06 21:46 | disposition home or self-care (01) ==
PROVIDERS: Emergency Provider Emergency Medicine; PCP Internal Medicine
DX: F41.9 Anxiety disorder, unspecified (principal); T43.225A Adverse effect of selective serotonin reuptake inhibitors, initial encounter; Y92.9 Unspecified place or not applicable; J45.909 Unspecified asthma, uncomplicated
CPT/HCPCS: 99283; 99284

== ENCOUNTER 2025-04-09 14:18 | Outpatient (REF) | payer OTHER, SELFPAY ==
--- NOTE | ~2025-04-09 | US_ITS ---
CLINICAL HISTORY: R10.20 - Pelvic and perineal pain unspecified side US pelvis transabdominal and transvaginal Comparison: None provided Findings: Transabdominal and transvaginal scanning performed. Transvaginal scanning performed to better evaluate the ovaries. Anteverted uterus is 10.0 cm length. Normal myometrium. No endometrial lesion, 6 mm thickness. Right ovary 3.3 x 2.1 x 1.7 cm. Left ovary 3.5 x 2.7 x 2.5 cm. Normal color Doppler of both ovaries. No free fluid. IMPRESSION: 1. Normal pelvic ultrasound This document has been electronically signed by: Grazyna Borges MD on 04/10/2025 09:12:08
--- OUTSIDE RECORDS SUMMARY | 2025-04-09 14:20 | XMS_ITS | Clinical Summary ---
Author Organization [facility] [employer] [facility] it Address [address] [place] [address] Care Team Providers Care Perinatal Tech Name Role Phone Baljinder Oliva MD Primary Care Provider [phone] Surgical History Surgery Date Site/Laterality Comments TONSILLECTOMY PROCEDURE: HISTORICAL TONSILLECTOMY ADENOIDECTOMY PROCEDURE: HISTORICAL ADENOIDECTOMY Medical History Medical History Date Comments Asthma DX:Asthma Chronic hypertension 11/07/2019 DX:Chronic hypertension; COMMENT: No medications; baseline pre-e labs wnl; allergy to ASA Anxiety and depression 11/07/2019 DX:Anxiet y and depression; [place] [facility] [place]: Stopped Paxil prior to , started counsleing EPDS 10; new FOB going through a divorce with ex Morbid obesity with body mas s index (BMI) of 40.0 to 44.9 in adult (CMS/HCC V24, CMS/HCC V28) 11/07/2019 DX:Morbid obesity with body mass index (BMI) of 40.0 to 44.9 in adult ([facility]) Family History Medical History Relation [...] age to complete this topic Care Teams Perinatal Tech Relationship Specialty Start Date End Date Baljinder Oliva MD PCP - General Internal Medicine 12/27/18
== END 2025-04-09 14:19 | disposition home or self-care (01) ==
LOC: HO.US 14:18
PROVIDERS: PCP Internal Medicine; Visit Provider Obstetrics & Gynecology
DX: R10.20 Pelvic and perineal pain unspecified side (principal)
CPT/HCPCS: 76830; 76856

== ENCOUNTER → 2025-04-09 14:19 | Outpatient (BNV) | payer OTHER, SELFPAY | PROVIDERS: PCP Internal Medicine; Visit Provider Radiology Diagnostic Radiology | DX: R10.20 Pelvic and perineal pain unspecified side (principal) | CPT/HCPCS: 76830; 76856 ==

== ENCOUNTER 2025-04-14 09:46 | Outpatient (AMB) | payer OTHER, SELFPAY ==
[2025-04-14 10:02] VITALS: BP 120/78; PULSE 98; RESP 18; O2SAT 100; BMI 33.0
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
--- OUTSIDE RECORDS SUMMARY | 2025-04-14 10:24 | XMS_ITS | Clinical Summary ---
Author Organization [facility] [employer] [facility] it Address [address] [place] [address] Care Team Providers Care Monitoring Tech Name Role Phone Baljinder Oliva MD Primary Care Provider [phone] Surgical History Surgery Date Site/Laterality Comments TONSILLECTOMY PROCEDURE: HISTORICAL TONSILLECTOMY ADENOIDECTOMY PROCEDURE: HISTORICAL ADENOIDECTOMY Medical History Medical History Date Comments Asthma DX:Asthma Chronic hypertension 11/07/2019 DX:Chronic hypertension; COMMENT: No medications; baseline pre-e labs wnl; allergy to ASA Anxiety and depression 11/07/2019 DX:Anxiet y and depression; COMMENT: [facility] [place]: Stopped Paxil prior to , started counsleing EPDS 10; new FOB going through a divorce with ex Morbid obesity with body mas s index (BMI) of 40.0 to 44.9 in adult (CMS/HCC V24, CMS/HCC V28) 11/07/2019 DX:Morbid obesity with body mass index (BMI) of 40.0 to 44.9 in adult ([facility]) Family History Medical History Relation [...] age to complete this topic Care Teams Monitoring Tech Relationship Specialty Start Date End Date Baljinder Oliva MD PCP - General Internal Medicine 12/27/18
== END 2025-04-14 10:35 | disposition home or self-care (01) ==
LOC: HO.HMCC 09:47
PROVIDERS: PCP Internal Medicine; Visit Provider Internal Medicine
DX: F41.9 Anxiety disorder, unspecified (principal); F32.A Depression, unspecified

== ENCOUNTER → 2025-04-14 09:46 | Outpatient (BNVA) | payer OTHER, SELFPAY | PROVIDERS: PCP Internal Medicine; Visit Provider Internal Medicine | DX: Z09 Encounter for follow-up examination after completed treatment for conditions other than malignant neoplasm (principal); F41.9 Anxiety disorder, unspecified; F41.0 Panic disorder [episodic paroxysmal anxiety]; T43.22 Poisoning by, adverse effect of and underdosing of selective serotonin reuptake inhibitors; F32.A Depression, unspecified | CPT/HCPCS: 99212 ==